=== PATIENT | male | born 1945 | race Caucasian/White ===

== ENCOUNTER 2017-04-20 07:15 | Inpatient (IN) | payer OTHER ==
[~2017-04-20] VITALS: Ht 167.6 cm; Wt 70.3 kg
--- NOTE | 2017-04-20 10:26 | History & Physical ---
SARAH SAMPSON,[place] 04/20/17 1026: General Information and HPI MD Statement: I have seen and personally examined GRISEL DORSEY and documented this H&P. The patient is a 72 year old M who presented with a patient stated chief complaint of [Here for colonoscopy prep]. Source of Information: patient Exam Limitations: no limitations History of Present Illness: A Paraplegic 72-year-old male with type 2 diabetes, CAD status post CABG and stents, hypertension, hyperlipidemia, chronic anemia, BPH, urethral strictures, multiple UTIs on chronic suppression therapy with ciprofloxacin, chronic decubitus ulcer on the Rt Ischium and has a colostomy in place since 1993 who sent in by his primary care physician Dr. Burton and his colorectal surgeon Dr. Zhou for colonoscopy to clean out the accumulation of mucus and fecal matter in his rectum which bypassed his colostomy resulting in inadvetent leakages from his rectum for the past 1 month. He reports that he had a similar problem almost 10 years ago and had to have fleet enemas with manual disimpaction as well as a colonoscopy by Dr. Zhou to clean him out and was sent in today to have the same procedure repeated. He denies any blood in his colostomy bag or via his rectum/anus but he has external hemorrhoids. He denies abdominal pain, nausea, vomiting, diarrhea, or fever/chills. He takes ciprofloxacin daily as prophylaxis for recurrent UTI. He has chronic decubiti on his Rt buttock for which he has visiting nurses come in daily to clean and dress the wounds and he follows up with wound care-Dr. Brewer in [facility]. Allergies/Medications Allergies: Uncoded Allergies: EMYCIN (RASH 07/21/15) Home Med list Amlodipine Besylate 5 MG TABLET 1 TAB PO DAILY HIGH BLOOD PRESSURE (Reported) Ascorbic Acid (Vitamin C) 500 MG CAPSULE.ER 2 CAP PO DAILY VITAMIN SUPPORT ( Reported) Aspirin (Ecotrin*) 81 MG TABLET. 1 TAB PO DAILY HEART HEALTH (Reported) Atenolol 25 MG TABLET 1 TAB PO DAILY HIGH BLOOD PRESSURE (Reported) Atorvastatin Calcium 20 MG TABLET 1 TAB PO DAILY HIGH CHOLESTROL (Reported) Cholecalciferol (Vitamin D3) (Vitamin D-3) 2,000 UNIT CAPSULE 1 TAB PO DAILY VITAMIN SUPPORT (Reported) Ciprofloxacin HCl 500 MG TABLET 1 TAB PO BID urinary prophylaxis (Reported) Cyanocobalamin (Vitamin B-12) (Cyanocobalamin Injection) 1,000 MCG/ML VIAL 1 ML IM Q30D VITAMIN SUPPORT (Reported) Gabapentin 300 MG CAPSULE 1 CAP PO TID NEUROPATHY (Reported) Glipizide (Glipizide ER) 5 MG TAB.ER.24 1 TAB PO DAILY DIABETES (Reported) Hydrochlorothiazide 25 MG TABLET 1 TAB PO DAILY HIGH BLOOD PRESSURE (Reported ) Metformin HCl 1,000 MG TABLET 1 TAB PO BID DIABETES (Reported) Compliance With Home Meds: GOOD Past History Medical History Neurological: Paraplegia Cardiovascular: CAD, hypertension, hyperlipidemia Musculoskeletal: decubitis ulcer Endocrine: diabetes Blood Disorders: anemia Other Medical Hx: BPH, Multiple UTIs, Urethral strictures, Urinary retention History of MRSA: Yes History of VRE: No History of CDIFF: No Pneumonia Vaccine: 06/26/13 Influenza Vaccine: 07/05/13 Past Family/Social History Family History Relations & Conditions if any MOTHER FH: breast cancer FH: hypertension FH: lung cancer uncle FH: cancer Psychosocial History Where do you live? Home Services at Home: Home Health Aide, Nursing Functional Ability ADLs Needs Assist: dressing, eating, toileting, bathing. Ambulation: Paraplegic-uses a wheelchair Review of Systems Review of Systems Constitutional: Reports: no symptoms. Cardiovascular: Reports: no symptoms. Respiratory: Reports: no symptoms. GI: Reports: see HPI. Genitourinary: Reports: no symptoms. Musculoskeletal: Reports: no symptoms. Exam & Diagnostic Data Physical Exam General Appearance Alert, Oriented X3, Cooperative, No Acute Distress Skin Rt Ischial decubitus [id number] HEENT Atraumatic, PERRLA, EOMI, Mucous Membr. moist/pink Neck Supple, No JVD Cardiovascular Regular Rate, Normal S1, Normal S2, No Murmurs Lungs Clear to Auscultation, Normal Air Movement Abdomen Normal Bowel Sounds, Soft, No Tenderness, Colostomy bag insitu, formed stool, mid abd scar Neurological Paraplegic with wasting of both lower extremities Extremities No Edema Last 24 Hrs of Labs/Willie: Laboratory Tests 04/20/17 1129: Sodium Pending, Potassium Pending, Chloride Pending, Carbon Dioxide Pending, Anion Gap Pending, BUN Pending, Creatinine Pending, BUN/Creatinine Ratio Pending , CBC w Diff Pending, WBC Pending, RBC Pending, Hgb Pending, Hct Pending, MCV Pending, MCH Pending, RDW Pending, Plt Count Pending, MPV Pending, PUBS MCHC Pending Assessment/Plan Assessment: A Paraplegic 72-year-old male with type 2 diabetes, CAD status post CABG and stents, hypertension, hyperlipidemia, chronic anemia, BPH, urethral strictures, multiple UTIs on chronic suppression therapy with ciprofloxacin, chronic decubitus ulcer on the Rt Ischium and has a colostomy in place since 1993 who sent in by his primary care physician Dr. Burtno and his colorectal surgeon Dr. Zhou for colonoscopy to clean out the accumulation of mucus and fecal matter in his rectum which bypassed his colostomy resulting in inadvetent leakages from his rectum for the past 1 month. Assessment 1. Fecal/Mucus acumution in rectum s/p diverting colostomy 2/2 paraplegia 2. T2 DM 3. HTN 4. Hx of Recurrent UTI 5. HLD, Hx of CAD Plan Admit to Bowel prep with Golytely and fleet enema Hold asprin and oral hypogylemics for now Fingerstick checks and Novolog SS Keep NPO at midnight with gentle hydration with D5 1/2NS Wound care for decubiti-turn regularly in bed or keep pt on air mattress Plan is for colonoscopy/proctoscopy in AM by Dr. Zhou Resume his other impt home medications DVT ppx with SC heparin Mild pain path way FC As Ranked By This Provider Problem List: 1. Colonoscopy planned Core Measures/Miscellaneous Acute Coronary Syndrome ACS Diagnosis: No Cerebrovascular Accident CVA/TIA Diagnosis: No Congestive Heart Failure CHF Diagnosis: No VTE (View Protocol) VTE Risk Factors: Acute medical illness, Age > 40 No [facility] VTE prophylaxis d/t: No contraindications No VTE Pharm Prophylaxis d/t: No contraindications VTE Diagnosis: No VTE Type: NONE VTE Confirmed by (Test): NONE Miscellaneous Documentation Attending Case Discussed With: Dr. Balderrama Primary Care Physician: TRES BURTON MD Patient sees these Specialists Cardiology Level of Patient Care: General Medicine Resident Review Statement Resident Statement: examined this patient Other Findings: see [facility] JOHN BALDERRAMA MD 04/20/17 1521: Past History Surgical History Surgical History: CABG, colostomy Exam & Diagnostic Data Last 24 Hrs of Vital Signs/I&O Vital Signs Date Time Temp Pulse Resp B/P B/P Pulse O2 O2 Flow FiO2 Mean Ox Delivery Rate 04/21 0709 98.2 86 20 102/46 95 04/20 2238 98.0 70 19 150/58 97 Room Air 04/20 1439 98.0 86 20 134/58 98 Room Air Intake & Output 04/21 1600 04/21 0800 04/21 0000 Intake Total Output Total 600 Balance -600 Output, Urine 600 Core Measures/Miscellaneous Sepsis (View Protocol) Severe Sepsis Present: No Septic Shock Septic Shock Present: No Attending MD Review Statement Attending Statement Attending MD Statement: examined this patient, discuss w/resident/PA/RETAIL SALES MERCHANDISER, agreed w/resident/PA/RETAIL SALES MERCHANDISER, reviewed EMR data (avail), discussed with nursing, discussed with case mgmt Attending Assessment/Plan: 82-year-old male past medical history of paraplegia from a spinal cord injury in the 1980s, coronary artery disease, diabetes, hypertension, urethral abnormalities his recurrent UTIs on chronic suppressive antibiotic therapy and a colostomy. He is here because he's been having a lot of fecal material and mucus leakage from his rectum. He says that his stool in his colostomy is well formed and no blood but the similar thing happen to him almost 10 years ago in 2007 and he needed a proctoscopy and colonoscopy with an aggressive bowel regimen and disimpaction and also had some mild diversion proctitis at that time. He couldn 't do the bowel prep at all at home given the colostomy, paraplegia and hence was sent in by his PCP for a direct admit for the same. We will keep him nothing by mouth after midnight, do the bowel prep as per the colorectal surgeon. Hold his oral hypoglycemics, start him on low-dose IV fluids. And follow-up closely. DVT prophylaxis and follow-up.
--- NOTE | 2017-04-20 10:30 | NUR ---
NSG NOTE: PATIENT ARRIVED TO FLOOR DIRECT ADMIT FROM DR. BURTON AT [facility] 1030 VIA PATIENTS OWN WHEELCHAIR; PATIENT A/OX3; RA; VSS; IV PLACED BY THIS RN; PATIENT HAS HX OF PARAPALEGIA W/ NO SENSATION BELOW THE WAIST; PATIENT IS WHEELCHAIR BOUND; RT ISCHIAL WOUND PRESENT WHICH PATIENT STATES HE HAS VISITING NURSES ASSESS AND DO DAILY DSG CHANGES; WOUND CARE EVAL PLACED; 3 SMALL AND 0NE LARGE OPEN AREA NOTED; PATIENT BROUGHT OWN DSG SUPPLIES IN FROM HOME AND THIS RN REDRESSED W/ HIS SUPPLIES DIRECTED BY PATIENT; PATIENT STATES, "THEY USE SILVER ALGENATE, 2 PADS, 2 ABD PADS AND TAPE TO DRESS THE WOUND" [place] CATH ON PATIENT AT THIS TIME; PATIENT STATES "I STRAIGHT CATH AT HOME AND WEAR THE [place] CATH SO I DONT LEAK ALL OVER"; RT SIDE COLOSTOMY IN PLACE; PATIENT REPORTS PAIN 4/10 TO BACK AND ABDOMEN WHICH HE STATES " I HAVE HAD THE SAME PAIN FOR YEARS, EVERYDAY"; PATIENT ORIENTED TO ROOM, CALL ABEL IN REACH; WILL CONT TO MONITOR
[2017-04-20] MEDS ORDERED: GLIPIZIDE ER5 M1 PO (10:38)
[2017-04-20] MEDS ORDERED: METFORMIN HCL1000 M1 PO (10:39)
[2017-04-20] MEDS ORDERED: HYDROCHLOROTHIA25 M1 PO (12:31)
[2017-04-20] MEDS ORDERED: CYANOCOBAL1000 MCG/2 IM (12:31)
[2017-04-20] MEDS ORDERED: CIPROFLOXACIN500 M2 PO (12:31)
[2017-04-20] MEDS ORDERED: AMLODIPINE BESYL5 M1 PO (12:32)
[2017-04-20] MEDS ORDERED: ATENOLOL25 M1 PO (12:32)
[2017-04-20] MEDS ORDERED: ATORVASTATIN CA20 M1 PO (12:32)
[2017-04-20] MEDS ORDERED: GABAPENTIN300 M2 PO (12:32)
[2017-04-20] MEDS ORDERED: VITAMIN C500 M7 PO (12:34)
[2017-04-20] MEDS ORDERED: VITAMIN D-32000 UNI1 PO (12:34)
[2017-04-20] MEDS ORDERED: ASPIRIN EC81 M1 PO (12:34)
[2017-04-20 12:59] LABS: ABSOLUTE BASOPHIL COUNT 0 /CUMM (0.0-0.2); ABSOLUTE EOSINOPHIL COUNT 0.1 /CUMM (0.0-0.7); ABSOLUTE GRANULOCYTE CT 10.2 /CUMM (1.4-6.5); ABSOLUTE LYMPH COUNT 1.6 /CUMM (1.2-3.4); ABSOLUTE MONOCYTE COUNT 0.6 /CUMM (0.10-0.60); BASOPHIL % 0.2 % (0.0-2.0); EOSINOPHIL % 0.6 % (0-5); GRANULOCYTE % 81.5 % (42.2-75.2); HEMATOCRIT 36.4 % (42-52); MEAN CORPUSCULAR HGB 19.2 PG (27.0-31.0); MEAN CORPUSCULAR HGB CONC 31.2 G/DL (33.0-37.0); MEAN CORPUSCULAR VOLUME 61.5 FL (80.0-94.0); MEAN PLATELET VOLUME 8.8 FL (7.4-10.4); PLATELET COUNT 247 /CUMM (130-400); RBC DISTRIBUTION WIDTH 16.9 % (11.5-14.5); RED BLOOD CELL CT 5.92 /CUMM (4.70-6.10); WHITE BLOOD CELL COUNT 12.6 /CUMM (4.8-10.8)
[2017-04-20 14:39] VITALS: BP 134/58
--- NOTE | 2017-04-20 15:21 | Admission Certification ---
Admission Certification Certification Statement - As attending physician, I certify that at the time of - admission, based on clinical presentation, severity of - symptoms, need for further diagnostic testing and - therapeutic interventions, and risk of adverse outcomes - without in-hospital treatment, in my clinical assessment, - this patient requires an acute hospital stay for a minimum - of two nights or longer. I have also considered psychsocial - factors such as support system, advanced age, financial - issues, cognitive issues, and failed out-patient treatments, - past re-admission history, safety of patient, and lack of - compliance as applicable. Specific rationale supporting this admission is: pt with fecal leakage , multiple comorbidities needs bowel prep and colonoscopy
--- NOTE | 2017-04-20 17:24 | Event Note ---
Event Note Event Note: Situation: Rcvd Rx faxed from Dr Whitney for Prepopik. Checked with Pharmacy and was notified it is non formulary and we do not carry the med. Called Dr Gray office and spoke and informed them about the unavailability of the Prepopik. They informed me that Golytely will be adequate enough.
[2017-04-20 22:38] VITALS: BP 150/58
[2017-04-21 07:09] VITALS: BP 102/46
--- NOTE | 2017-04-21 08:03 | PN- Housestaff ---
DIANA SAMPSON,[place] 04/21/17 0802: Subjective Follow-up For: colonoscopy Subjective: Seen and examined at bedside. Offers no acute complaint. Finished 2/3 of golytely prep in anticipation for colonoscopy. Denies fever/chill,n/c,cp/palp, abdominal pain,dysuria. Review of Systems Constitutional: Reports: see HPI. Objective Last 24 Hrs of Vital Signs/I&O Vital Signs Date Time Temp Pulse Resp B/P B/P Pulse O2 O2 Flow FiO2 Mean Ox Delivery Rate 04/21 1451 97.9 84 20 110/60 98 Room Air 04/21 1306 89 148/58 04/21 1306 89 148/58 04/21 0709 98.2 86 20 102/46 95 Physical Exam General Appearance: Alert, Oriented X3, Cooperative Other Physical Findings: Skin Rt Ischial decubitus [id number] HEENT Atraumatic, PERRLA, EOMI, Mucous Membr. moist/pink Neck Supple, No JVD Cardiovascular Regular Rate, Normal S1, Normal S2, No Murmurs Lungs Clear to Auscultation, Normal Air Movement Abdomen Normal Bowel Sounds, Soft, No Tenderness, Colostomy bag insitu, formed stool, mid abd scar Neurological Paraplegic with wasting of both lower extremities Extremities No Edema Current Medications: Current Medications Sig/Santhosh Start time Last Medication Dose Route Stop Time Status Admin Acetaminophen 650 MG Q6P PRN 04/20 1030 DCD PO Amlodipine Besylate 5 MG DAILY 04/21 1000 DCD 04/21 PO 1306 Ascorbic Acid 1,000 MG DAILY 04/21 1000 DCD 04/21 PO 1305 Atenolol 25 MG DAILY 04/21 1000 DCD 04/21 PO 1306 Atorvastatin Calcium 20 MG DAILY 04/21 1000 DCD 04/21 PO 1305 Chlorhexidine 1 GM .STK-MED ONE 04/21 1228 DC Gluconate TOP 04/21 1229 Cholecalciferol 2,000 IU DAILY 04/21 1000 DCD 04/21 PO 1306 Ciprofloxacin 500 MG BID 04/20 2200 DCD 04/21 PO 04/24 215 1304 Dextrose/Sodium 1,000 ML Q20H 04/21 0000 DCD 04/21 Chloride IV 0020 Gabapentin 300 MG TID 04/20 1600 DCD 04/21 PO 1305 Heparin Sodium 5,000 UNIT Q8 04/20 1400 DCD (Porcine) SC Hydrochlorothiazide 25 MG DAILY 04/21 1000 DCD 04/21 PO 1305 Insulin Human Regular 4 UNITS .STK-MED ONE 04/21 1342 DC IV 04/21 1343 Insulin Human Regular 0 Q6 04/20 1800 DCD 04/21 SC 1344 Last 24 Hrs of Lab/Willie Results Last 24 Hrs of Labs/Mics: .... Assessment/Plan Assessment: This is a Paraplegic 72-year-old male with type 2 diabetes, CAD status post CABG and stents, hypertension, hyperlipidemia, chronic anemia, BPH, urethral strictures, multiple UTIs on chronic suppression therapy with ciprofloxacin, chronic decubitus ulcer on the Rt Ischium and has a colostomy in place since 1993 who sent in by his primary care physician Dr. Bynum and his colorectal surgeon Dr. Zhou for colonoscopy to clean out the accumulation of mucus and fecal matter in his rectum which bypassed his colostomy resulting in inadvetent leakages from his rectum for the past 1 month. Colonoscopy Procedure Medical History: unchanged Mental Status: alert/oriented Heart/Lung Eval Prior to Sedation: within normal limits Candidate for Sedation? Yes Date of Last Colonoscopy: 2007 Procedure Date: 04/21/17 Procedure Type: colonoscopy Energy Manager: Roel Zhou MD ASA Classification: III Indications: #1 colorectal cancer screening #2 rectal seepage Instrument (Colonoscope): single channel Meds Received: MAC Patient's Tolerance: good Complications: none Extent Reached: cecum Prep: good Procedure: After informed consent was obtained, the patient was placed in the supine position on the GI stretcher. He was sedated by the Department of anesthesia with intravenous propofol. Full length adult Olympus colonoscope was inserted through his left lower quadrant end sigmoid colostomy and negotiated through the sigmoid, descending, transverse, and ascending colons until the cecum was reached. Valve and appendiceal orifice were identified. The scope was then withdrawn carefully observing all mucosal surfaces of the colon for the presence of polyps, lesions, inflammation, or bleeding sources. There were no such findings visualized. The patient was then carefully turned into the left lateral position and the scope was introduced through the anal canal into the rectum. It was passed to the end of the rectal pouch approximately 15 cm upward until a visible staple line was encountered indicating the end of the rectal pouch. While there were some inflammatory changes at this level there was no evidence of an active fistula here. The scope was withdrawn and the mucosa was carefully examined. There was no fecal staining one or 2 areas of thick mucus which were washed out. The underlying rectal mucosa was slightly edematous and pinkish consistent with diversion proctitis. Ultimately the scope was removed. Findings: See above procedure note Impression: Normal colonoscopy post end sigmoid colostomy Diversion proctitis of the rectum Recommendations: No changes in anorectal care or colostomy apparatus and care are needed at this time. 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 Pt restarted back on regular diet. Will continue to f/u with colorectal and PCP. No changes made on his med list. Stable for discharge. Problem List: 1. Colonoscopy planned Pain Ratin Pain Location: none Pain Goal: Remain pain free Pain Plan: per pathway Tomorrow's Labs & Rationales: none-discharge JOHN BALDERRAMA MD 04/21/17 0929: Attending MD Review Statement Attending Statement Attending MD Statement: examined this patient, discuss w/resident/PA/CORPORATE ASSOCIATE ATTORNEY, agreed w/resident/PA/CORPORATE ASSOCIATE ATTORNEY, reviewed EMR data (avail), discussed with nursing Attending Assessment/Plan: Pt feels ok. Overnight he had multiple BM's both from his rectal area and colostomy bag and the output is almost clear now. The plan is for a colonoscopy later today. He has underlying paraplegia with diabetes, CAD status post bypass was here with persistent feculent/ mucus drainage through the rectal area and is getting a diagnostic and questionable therapeutic colonoscopy. He is nothing by mouth on low-dose IV fluids and will follow closely.
--- NOTE | 2017-04-21 10:24 | NUR ---
PT OFF THE FLOOR TO GI FOR SCHEDULED COLONOSCOPY. PT STABLE. NO DISTRESS. PENDING RETURN TO FLOOR.
--- NOTE | 2017-04-21 12:15 | Proc Note Colonoscopy ---
Colonoscopy Procedure Medical History: unchanged Mental Status: alert/oriented Heart/Lung Eval Prior to Sedation: within normal limits Candidate for Sedation? Yes Date of Last Colonoscopy: 2007 Procedure Date: 04/21/17 Procedure Type: colonoscopy General Road Supervisor: Roel Zhou MD ASA Classification: III Indications: #1 colorectal cancer screening #2 rectal seepage Instrument (Colonoscope): single channel Meds Received: MAC Patient's Tolerance: good Complications: none Extent Reached: cecum Prep: good Procedure: After informed consent was obtained, the patient was placed in the supine position on the GI stretcher. He was sedated by the Department of anesthesia with intravenous propofol. Full length adult Olympus colonoscope was inserted through his left lower quadrant end sigmoid colostomy and negotiated through the sigmoid, descending, transverse, and ascending colons until the cecum was reached. Valve and appendiceal orifice were identified. The scope was then withdrawn carefully observing all mucosal surfaces of the colon for the presence of polyps, lesions, inflammation, or bleeding sources. There were no such findings visualized. The patient was then carefully turned into the left lateral position and the scope was introduced through the anal canal into the rectum. It was passed to the end of the rectal pouch approximately 15 cm upward until a visible staple line was encountered indicating the end of the rectal pouch. While there were some inflammatory changes at this level there was no evidence of an active fistula here. The scope was withdrawn and the mucosa was carefully examined. There was no fecal staining one or 2 areas of thick mucus which were washed out. The underlying rectal mucosa was slightly edematous and pinkish consistent with diversion proctitis. Ultimately the scope was removed. Findings: See above procedure note Impression: Normal colonoscopy post end sigmoid colostomy Diversion proctitis of the rectum Recommendations: No changes in anorectal care or colostomy apparatus and care are needed at this time. Followup Colonscopy Screen In: in 10 years CC: DANILO SAMPSON,JORGE Ayoub; JOSEPHINE SAMPSON,TRES Henderson
--- NOTE | 2017-04-21 14:08 | Patient Discharge Instructions ---
Discharge Instructions General Discharge Information You were seen/treated for: POSSIBLE RECTAL DISCHARGE/LEAK Special Instructions: PLEASE FOLLOW UP WITH YOUR PRIMARY CARE WITHIN 1 WEEK PLEASE FOLLOW UP WITH YOU COLORECTAL SURGEON WITHIN 1 WEEK Acute Coronary Syndrome Inclusion Criteria At DC or during hospital stay patient has or had the following: ACS DIAGNOSIS No Discharge Core Measures Meds if any: Prescribed or Continued at Discharge Meds if any: NOT Prescribed or Continued at Discharge Congestive Heart Failure Inclusion Criteria At DC or during hospital stay patient has or had the following: CHF DIAGNOSIS No Discharge Core Measures Meds if any: Prescribed or Continued at Discharge Meds if any: NOT Prescribed or Continued at Discharge Cerebrovascular accident Inclusion Criteria At DC or during hospital stay patient has or had the following: CVA/TIA Diagnosis No Discharge Core Measures Meds if any: Prescribed or Continued at Discharge Meds if any: NOT Prescribed or Continued at Discharge Venous thromboembolism Inclusion Criteria VTE Diagnosis No VTE Type NONE VTE Confirmed by (Test) NONE Discharge Core Measures - Per Current guidelines, there needs to be overlap - treatment for the first 5 days of Warfarin therapy. - If discharged on Warfarin prior to 5 days of - overlap therapy, the patient will need to be - assessed for post discharge needs including - *Post discharge parental anticoagulation - *Warfarin and/or parental anticoagulation education - *Follow up date to check INR post discharge At least 5 days overlap therapy as Inpatient No Meds if any: Prescribed or Continued at Discharge Note: Overlap Therapy is Warfarin and Anticoagulant Meds if any: NOT Prescribed or Continued at Discharge
[2017-04-21 14:51] VITALS: BP 110/60
--- NOTE | 2017-04-22 06:42 | Discharge Summary ---
Visit Information Visit Dates Admission Date: 04/20/17 Discharge Date: 04/21/17 Hospital Course Course Attending Physician: TRES BURTON MD Primary Care Physician: TRES BURTON MD Hospital Course: This is a Paraplegic 72-year-old male with type 2 diabetes, CAD status post CABG and stents, hypertension, hyperlipidemia, chronic anemia, BPH, urethral strictures, multiple UTIs on chronic suppression therapy with ciprofloxacin, chronic decubitus ulcer on the Rt Ischium. a colostomy in place since 1993 who sent in by his PCP and his colorectal surgeon Dr. Zhou for colonoscopy to clean out the accumulation of mucus matter in his rectum which resulted in inadvertentl anal leakage.He reports that he had a similar problem almost 10 years ago and had to have fleet enemas with manual disimpaction as well as a colonoscopy by Dr. Zhou to clean him out and he was sent in today to have the same procedure repeated. He denied any blood in his colostomy bag or via his rectum/anus but he has external hemorrhoids. He denied any abdominal pain, nausea, vomiting, diarrhea, or fever/chills. VS signs on presentation: Stable. Pt was admitted to [facility] floor, started on clear liquids and Golytely prep/ fleet, and NPO at night prior to procedure. In the morning, patient underwent colonoscopy with no intraprocedure complication. Colonoscopy findings were benign other than possible proctitis diversion of the rectum. pt diet was restarted to regular diet post procedure. He was medically stable and discharge same day of procedure. No changes on his medication regimen was done during discharge. Allergies: Uncoded Allergies: EMYCIN (RASH 07/21/15) Significant Procedures: PATIENT CARE UNIT CONFIDENTIAL COPY Colonoscopy Procedure Medical History: unchanged Mental Status: alert/oriented Heart/Lung Eval Prior to Sedation: within normal limits Candidate for Sedation? Yes Date of Last Colonoscopy: 2007 Procedure Date: 04/21/17 Procedure Type: colonoscopy Research Animal Attendant: Roel Zhou MD ASA Classification: III Indications: #1 colorectal cancer screening #2 rectal seepage Instrument (Colonoscope): single channel Meds Received: MAC Patient's Tolerance: good Complications: none Extent Reached: cecum Prep: good Procedure: After informed consent was obtained, the patient was placed in the supine position on the GI stretcher. He was sedated by the Department of anesthesia with intravenous propofol. Full length adult Olympus colonoscope was inserted through his left lower quadrant end sigmoid colostomy and negotiated through the sigmoid, descending, transverse, and ascending colons until the cecum was reached. Valve and appendiceal orifice were identified. The scope was then withdrawn carefully observing all mucosal surfaces of the colon for the presence of polyps, lesions, inflammation, or bleeding sources. There were no such findings visualized. The patient was then carefully turned into the left lateral position and the scope was introduced through the anal canal into the rectum. It was passed to the end of the rectal pouch approximately 15 cm upward until a visible staple line was encountered indicating the end of the rectal pouch. While there were some inflammatory changes at this level there was no evidence of an active fistula here. The scope was withdrawn and the mucosa was carefully examined. There was no fecal staining one or 2 areas of thick mucus which were washed out. The underlying rectal mucosa was slightly edematous and pinkish consistent with diversion proctitis. Ultimately the scope was removed. Findings: See above procedure note Impression: Normal colonoscopy post end sigmoid colostomy Diversion proctitis of the rectum Recommendations: No changes in anorectal care or colostomy apparatus and care are needed at this time. Followup Colonscopy Screen In: in 10 years Disposition Summary Disposition Principal Diagnosis: Diversion proctitis of rectum Additional Diagnosis: Lower GI pain Discharge Disposition: home health services Discharge Instructions General Discharge Information Code Status: Full Code Patient's Diet: regular Patient's Activity: As tolerated Follow-Up Instructions/Appts: Pt to follow up with Colorectal within 1 week Pt to f/u with PCP within 1 week Medications at Discharge Discharge Medications: Continue taking these medications: Glipizide (Glipizide ER) 5 MG TAB.ER.24 1 Tablet ORAL DAILY Qty = 30 Comments: NOT GIVEN- SS INSULIN PROVIDED NEEDED INSTEAD Metformin HCl (Metformin HCl) 1,000 MG TABLET 1 Tablet ORAL TWICE DAILY Qty = 60 Comments: NOT GIVEN- INSULIN COVERAGE PROVIDED NEEDED Cyanocobalamin (Vitamin B-12) (Cyanocobalamin Injection) 1,000 MCG/ML VIAL 1 Milliliters INTRAMUSC ONCE A MONTH Qty = 1 Comments: NOT GIVEN Hydrochlorothiazide (Hydrochlorothiazide) 25 MG TABLET 1 Tablet ORAL DAILY Qty = 30 Comments: Last Taken: 04/21/17 Time: 1 PM Ciprofloxacin HCl (Ciprofloxacin HCl) 500 MG TABLET 1 Tablet ORAL TWICE DAILY Qty = 68 Comments: Last Taken: 04/21/17 Time: 1 PM Atenolol (Atenolol) 25 MG TABLET 1 Tablet ORAL DAILY Qty = 60 Comments: Last Taken: 04/21/17 Time: 1 PM Amlodipine Besylate (Amlodipine Besylate) 5 MG TABLET 1 Tablet ORAL DAILY Qty = 30 Comments: Last Taken: 04/21/17 Time: 1 PM Atorvastatin Calcium (Atorvastatin Calcium) 20 MG TABLET 1 Tablet ORAL DAILY Qty = 30 Comments: Last Taken: 04/21/17 Time: 1 PM Gabapentin (Gabapentin) 300 MG CAPSULE 1 Capsule ORAL THREE TIMES DAILY Qty = 180 Comments: Last Taken: 04/21/17 Time: 1 PM Cholecalciferol (Vitamin D3) (Vitamin D-3) 2,000 UNIT CAPSULE 1 Tablet ORAL DAILY Comments: Last Taken: 04/21/17 Time: 1 PM Aspirin (Ecotrin*) 81 MG TABLET.DR 1 Tablet ORAL DAILY Comments: NOT GIVEN Ascorbic Acid (Vitamin C) 500 MG CAPSULE.ER 2 Capsule ORAL DAILY Comments: Last Taken: 04/21/17 Time: 1 PM Copies To: JOSEPHINE SAMPSON,TRES Henderson
== END 2017-04-21 15:25 | disposition home health service (06) | DRG 394 ==
LOC: 2NB 10:12 → 2NA 11:00 → 2NB 04-21 15:25
PROVIDERS: Student in an Organized Health Care Education/Training Program; ADMIT Internal Medicine
PROC: 0DJD8ZZ Inspection of Lower Intestinal Tract, Via Natural or Artificial Opening Endoscopic (ICD-10-PCS; principal; 2017-04-21)
DX: K62.89 Other specified diseases of anus and rectum (principal); G82.20 Paraplegia, unspecified; L89.899 Pressure ulcer of other site, unspecified stage; I10 Essential (primary) hypertension; E11.9 Type 2 diabetes mellitus without complications; D64.9 Anemia, unspecified; I25.10 Atherosclerotic heart disease of native coronary artery without angina pectoris; E78.5 Hyperlipidemia, unspecified; N40.0 Benign prostatic hyperplasia without lower urinary tract symptoms; Z93.3 Colostomy status; Z95.1 Presence of aortocoronary bypass graft; Z79.84 Long term (current) use of oral hypoglycemic drugs
CPT/HCPCS: 2NBP; 36415; 82436; 93005; 93010; J1644; J1815; J7042

== ENCOUNTER 2018-02-17 12:53 | Emergency (ER) | payer OTHER ==
[~2018-02-17] VITALS: Ht 167.6 cm; Wt 70.3 kg
[~2018-02-17 12:53] MED LIST: AMLODIPINE BESYL5 M1 PO; ASPIRIN EC81 M1 PO; ATENOLOL25 M1 PO; ATORVASTATIN CA20 M1 PO; CIPROFLOXACIN500 M2 PO; CYANOCOBAL1000 MCG/2 IM; GABAPENTIN300 M2 PO; GLIPIZIDE ER5 M1 PO; HYDROCHLOROTHIA25 M1 PO; METFORMIN HCL1000 M1 PO; VITAMIN C500 M7 PO; VITAMIN D-32000 UNI1 PO
--- NOTE | 2018-02-17 13:09 | ED GENERAL ADULT ---
History of Present Illness General Chief Complaint: General Adult Stated Complaint: PT WAS SENT IN FOR A PICK LINE AND OPEN WOUND Source: patient, family, old records Exam Limitations: no limitations Vital Signs & Intake/Output Vital Signs & Intake/Output Vital Signs Date Time Temp Pulse Resp B/P B/P Pulse O2 O2 Flow FiO2 Mean Ox Delivery Rate 02/17 1354 Room Air 02/17 1303 98.7 78 18 139/90 99 Room Air Allergies Coded Allergies: erythromycin base (RASH 02/17/18) Reconcile Medications Amitriptyline HCl 25 MG TABLET 1 TAB PO QPM SLEEP (Reported) Amlodipine Besylate 5 MG TABLET 1 TAB PO DAILY HIGH BLOOD PRESSURE (Reported) Ascorbic Acid (Vitamin C) 500 MG CAPSULE.ER 2 CAP PO DAILY VITAMIN SUPPORT ( Reported) Aspirin (Ecotrin*) 81 MG TABLET.DR 1 TAB PO DAILY HEART HEALTH (Reported) Atenolol 25 MG TABLET 1 TAB PO BID BP (Reported) Atorvastatin Calcium 20 MG TABLET 1 TAB PO DAILY HIGH CHOLESTROL (Reported) Cholecalciferol (Vitamin D3) (Vitamin D-3) 2,000 UNIT CAPSULE 1 TAB PO DAILY VITAMIN SUPPORT (Reported) Ciprofloxacin HCl 500 MG TABLET 1 TAB PO DAILY URINE (Reported) Cyanocobalamin (Vitamin B-12) (Cyanocobalamin Injection) 1,000 MCG/ML VIAL 1 ML IM Q30D VITAMIN SUPPORT (Reported) Ferrous Sulfate 325 MG (65 MG IRON) TABLET 1 TAB PO DAILY IRON, VITAMIN ( Reported) Gabapentin 300 MG CAPSULE 1 CAP PO TID NEUROPATHY (Reported) Glipizide (Glipizide ER) 5 MG TAB.ER.24 1 TAB PO DAILY DIABETES (Reported) Hydrochlorothiazide 25 MG TABLET 1 TAB PO DAILY HIGH BLOOD PRESSURE (Reported ) Hydrocodone/Acetaminophen (Hydrocodon-Acetaminoph 7.5-325) 7.5 MG-325 MG TABLET 1-2 TAB PO Q4-6 PRN PRN PAIN (Reported) Metformin HCl 1,000 MG TABLET 1 TAB PO BID DIABETES (Reported) Triage Note: 72 Y/O MALE STATES HE HAS OSTEOMYELITIS,"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 PT STATES HE HAS HAD A WOUND FOR 18 YEARS BUT IT BECAME "UGLY" OVER LAST FEW WEEKS. PT STATES HE WAS TOLD TO COME TO ED FOR PICC LINE PLACEMENT AND IV ANTIBIOTICS. MD BYRNE IN ROOM ON ARRIVAL FOR EVAL Triage Nurses Notes Reviewed? yes HPI: Patient has been paraplegic for the past 30 years. Patient has had a chronic decubitus for the past 18 years. Patient follows up with [facility] wound center. He began to have pus drainage from the wound a few days ago. Patient had debridement and bone biopsy performed which is now growing MRSA. Patient was instructed that he is a PICC line as well as IV Vanco. Patient has no other complaints. Past History Travel History Traveled to [place] past 21 day No Medical History Any Pertinent Medical History? see below for history Neurological: Paraplegia EENT: NONE Cardiovascular: CAD, hypertension, hyperlipidemia Respiratory: NONE Gastrointestinal: NONE Hepatic: NONE Renal: NONE Musculoskeletal: decubitis ulcer Psychiatric: NONE Endocrine: diabetes Blood Disorders: anemia Cancer(s): NONE EMPLOYEE RELATIONS CONSULTANT/Reproductive: NONE, trichomoniasis Other Medical Hx: BPH, Multiple UTIs, Urethral strictures, Urinary retention History of MRSA: Yes History of VRE: No History of CDIFF: No Pneumonia Vaccine: 06/26/13 Influenza Vaccine: 07/05/13 Surgical History Surgical History: CABG, colostomy Psychosocial History Who do you live with Spouse Services at Home Home Health Aide, Nursing What is your primary language Qatari Tobacco Use: Quit >30 days ago ETOH Use: denies use Illicit Drug Use: denies illicit drug use Family History Family History, If Any: MOTHER FH: breast cancer FH: hypertension FH: lung cancer uncle FH: cancer Hx Contributory? No Review of Systems Review of Systems Constitutional: Reports: no symptoms. Respiratory: Reports: no symptoms. Cardiovascular: Reports: no symptoms. Musculoskeletal: Reports: no symptoms. Immunologic/Allergic: Reports: no symptoms. Physical Exam Physical Exam General Appearance: well developed/nourished, alert, awake Eyes: Bilateral: PERRL, EOMI. Neck: normal inspection, supple, full range of motion Respiratory: normal breath sounds, chest non-tender, no respiratory distress, lungs clear Cardiovascular: regular rate/rhythm, normal peripheral pulses Neurologic/Psych: awake, alert, oriented x 3 Core Measures ACS in differential dx? No CVA/TIA Diagnosis: No Sepsis Present: No Sepsis Focused Exam Completed? 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] Plan of Care: Orders Procedure Date/time Status COMPREHENSIVE METABOLIC PANEL 02/17 1324 Complete CBC WITHOUT DIFFERENTIAL 02/17 1324 Complete Laboratory Tests 02/17/18 1350: Anion Gap 14, Estimated GFR > 60, BUN/Creatinine Ratio 25.0, Glucose 117 H, Calcium 8.7, Total Bilirubin 0.3, AST 14 L, ALT 23, Alkaline Phosphatase 74, Total Protein 6.7, Albumin 3.6, Globulin 3.1, Albumin/Globulin Ratio 1.2, CBC w Diff NO MAN DIFF REQ, RBC 5.15, MCV 59.6 L, MCH 18.8 L, MCHC 31.5 L, RDW 17.0 H, MPV 7.9, Gran % 80.1 H, Lymphocytes % 12.3 L, Monocytes % 6.9, Eosinophils % 0.4, Basophils % 0.3, Absolute Granulocytes 9.8 H, Absolute Lymphocytes 1.5, Absolute Monocytes 0.8 H, Absolute Eosinophils 0, Absolute Basophils 0 Initial ED EKG: none Comments: Case was discussed with Dr. Jenkins. He recommends IV Vanco 1 g daily for 4-6 weeks. Patient informed that he will need to follow-up with an infectious disease physician. Son states that he has no point with Dr. Sierra for follow-up. Departure Departure Disposition: HOME OR SELF CARE Condition: Stable Clinical Impression Primary Impression: Osteomyelitis Referrals: Misa SAMPSON,Loco Huber (PCP/Family) Additional Instructions: THE NURSE WILL BE THERE TO GIVE YOU YOUR NEXT VANCO DOSE HAVE BLOOD WORK DRAWN ON Tuesday FOR ANY CONCERNS Departure Forms: Customer Survey General Discharge Information Critical Care Note Critical Care Note Critical Care Time: non-applicable Additional Instructions: THE NURSE WILL BE THERE TO GIVE YOU YOUR NEXT VANCO DOSE HAVE BLOOD WORK DRAWN ON Tuesday FOR ANY CONCERNS Departure Forms: Customer Survey General Discharge Information
[2018-02-17 14:02] LABS: ABSOLUTE BASOPHIL COUNT 0 /CUMM (0.0-0.2); ABSOLUTE EOSINOPHIL COUNT 0 /CUMM (0.0-0.7); ABSOLUTE GRANULOCYTE CT 9.8 /CUMM (1.4-6.5); ABSOLUTE LYMPH COUNT 1.5 /CUMM (1.2-3.4); ABSOLUTE MONOCYTE COUNT 0.8 /CUMM (0.10-0.60); BASOPHIL % 0.3 % (0.0-2.0); EOSINOPHIL % 0.4 % (0-5); GRANULOCYTE % 80.1 % (42.2-75.2); HEMATOCRIT 30.7 % (42-52); MEAN CORPUSCULAR HGB 18.8 PG (27.0-31.0); MEAN CORPUSCULAR HGB CONC 31.5 G/DL (33.0-37.0); MEAN PLATELET VOLUME 7.9 FL (7.4-10.4); PLATELET COUNT 306 /CUMM (130-400); RED BLOOD CELL CT 5.15 /CUMM (4.70-6.10); WHITE BLOOD CELL COUNT 12.3 /CUMM (4.8-10.8)
[2018-02-17] MEDS ORDERED: HYDROCODON-ACE1 EAC3 PO (14:15)
[2018-02-17] MEDS ORDERED: AMITRIPTYLINE H25 M2 PO (14:16)
[2018-02-17] MEDS ORDERED: CYANOCOBAL1000 MCG/2 IM (14:16)
[2018-02-17 14:20] LABS: MEAN CORPUSCULAR VOLUME 59.6 FL (80.0-94.0)
[2018-02-17] MEDS ORDERED: FERROUS SULFAT325 M3 PO (14:20)
--- NOTE | 2018-02-17 15:30 | ULTRASOUND REPORT ---
IR PICC RIGHT PROCEDURE: PICC line placement. CLINICAL INDICATION: Infection requiring IV access. INTERVENTIONAL RADIOLOGIST: Roel Srivastava M.D. ACCESS: Right basilic vein. GUIDANCE: Ultrasound and fluoroscopy COMPLICATIONS: None CONTRAST: None DESCRIPTION: The right arm was prepped and draped. All elements of maximal sterile barrier technique followed including use of cap, mask, sterile gown, sterile gloves, a sterile full body drape and hand hygiene. Also followed skin preparation with 2% chlorhexidine for cutaneous antisepsis, and sterile ultrasound preparation with sterile gel and probe cover when applicable. Under direct ultrasound guidance, the right basilic vein was punctured using a micropuncture system. A hard copy image of the US was recorded in our PACS. Under fluoroscopic guidance, a 0.018 guidewire was advanced into the right atrium. Fluoroscopic landmarks were utilized to calculate the catheter length. A 5-Bahamian peel-away sheath was then placed. Subsequently, a 40 cm 5-Bahamian double-lumen Bard PowerPICC was placed through the sheath and positioned with its tip at the right atrial/SVC junction. The PICC line was secured to the skin using a fixation device. Each lumen of the PICC was flushed with 2 mL of Hep-Lock and a sterile dressing was applied. IMPRESSION: Successful placement of 5-Bahamian PICC. This can be used for contrast CT power injections.
[2018-02-17 17:13] VITALS: BP 135/62
== END 2018-02-17 17:16 ==
LOC: ERH 12:53
PROVIDERS: Emergency Medicine
DX: M86.9 Osteomyelitis, unspecified (principal)
CPT/HCPCS: 77001; 96374; C1769; J1642; J2001; J3370

== ENCOUNTER 2018-03-11 14:15 | Inpatient (IN) | payer OTHER ==
[~2018-03-11] VITALS: Ht 167.6 cm; Wt 63.6 kg
[~2018-03-11 14:15] MED LIST changes: +AMITRIPTYLINE H25 M2 PO; +FERROUS SULFAT325 M3 PO; +HYDROCODON-ACE1 EAC3 PO
--- NOTE | 2018-03-11 14:41 | ED GENERAL ADULT ---
History of Present Illness General Chief Complaint: General Adult Stated Complaint: BIBA WITH SEPTIC,FEVER Source: patient, family, old records Exam Limitations: no limitations Allergies Coded Allergies: erythromycin base (RASH 02/17/18) Reconcile Medications Amitriptyline HCl 25 MG TABLET 1 TAB PO QPM SLEEP (Reported) Amlodipine Besylate 5 MG TABLET 1 TAB PO DAILY HIGH BLOOD PRESSURE (Reported) Ascorbic Acid (Vitamin C) 500 MG CAPSULE.ER 2 CAP PO DAILY VITAMIN SUPPORT ( Reported) Aspirin (Ecotrin*) 81 MG TABLET.DR 1 TAB PO DAILY HEART HEALTH (Reported) Atenolol 25 MG TABLET 1 TAB PO BID BP (Reported) Atorvastatin Calcium 20 MG TABLET 1 TAB PO DAILY HIGH CHOLESTROL (Reported) Cholecalciferol (Vitamin D3) (Vitamin D-3) 2,000 UNIT CAPSULE 1 TAB PO DAILY VITAMIN SUPPORT (Reported) Ciprofloxacin HCl 500 MG TABLET 1 TAB PO DAILY URINE (Reported) Cyanocobalamin (Vitamin B-12) (Cyanocobalamin Injection) 1,000 MCG/ML VIAL 1 ML IM Q30D VITAMIN SUPPORT (Reported) Ferrous Sulfate 325 MG (65 MG IRON) TABLET 1 TAB PO DAILY IRON, VITAMIN ( Reported) Gabapentin 300 MG CAPSULE 1 CAP PO TID NEUROPATHY (Reported) Glipizide (Glipizide ER) 5 MG TAB.ER.24 1 TAB PO DAILY DIABETES (Reported) Hydrochlorothiazide 25 MG TABLET 1 TAB PO DAILY HIGH BLOOD PRESSURE (Reported ) Hydrocodone/Acetaminophen (Hydrocodon-Acetaminoph 7.5-325) 7.5 MG-325 MG TABLET 1-2 TAB PO Q4-6 PRN PRN PAIN (Reported) Metformin HCl 1,000 MG TABLET 1 TAB PO BID DIABETES (Reported) Triage Note: PT BIBA FROM HOME WITH C/O SUBJECTIVE FEVERS AND TREMOR x APPROXIMATELY 5-6 DAYS. PT WITH HX OF PARAPLEGIA AND OSTEOMYELITIS WITH RECENT PICC PLACEMENT AND AT-HOME ABX. EMS REPORTS PT TACHYCARDIC EN ROUTE WITH RATE IN 120s. PT ARRIVES A&O, VISIBLY TREMULOUS. REMAINS TACHYCARDIC Triage Nurses Notes Reviewed? yes Onset: Abrupt Duration: week(s): (1), constant, continues in ED, getting worse Timing: recent history Injury Environment: home Severity: moderate, severe No Modifying Factors: none HPI: 72-year-old male history of paraplegia, osteomyelitis, large sacral pressure ulcer, diabetes, coronary artery disease as her evaluation of fever, weakness, sweats, chills, tremors and shortness of breath. Patient states symptoms have been ongoing for about a week. Fevers initially low-grade but then today spiked temp of 102. He's been taking Tylenol home with mild improvement. Patient is currently on vancomycin for osteomyelitis related to a sacral pressure ulcer. He's had the area debrided multiple times and is followed by infectious disease. Patient also reports she's had intermittent shortness of breath and chest pressure that has been going on for several weeks. Patient is not ambulatory. He denies any lower extremity edema hemoptysis nausea vomiting. Since being on the vancomycin he has had loose stool going in his colostomy bag but denies any melena or blood. (Earnest Villagran) Vital Signs & Intake/Output Vital Signs & Intake/Output Vital Signs Date Time Temp Pulse Resp B/P B/P Pulse O2 O2 Flow FiO2 Mean Ox Delivery Rate 03/11 1928 98.5 92 20 132/60 98 Room Air 03/11 1626 96 Room Air 03/11 1625 100.0 108 22 135/60 96 Room Air 03/11 1431 102.4 124 22 168/70 95 Room Air (Manju SAMPSON,Danis Salguero) Past History Travel History Traveled to [place] past 21 day No Medical History Any Pertinent Medical History? see below for history Neurological: Paraplegia EENT: NONE Cardiovascular: CAD, hypertension, hyperlipidemia Respiratory: NONE Gastrointestinal: NONE Hepatic: NONE Renal: NONE Musculoskeletal: decubitis ulcer Psychiatric: NONE Endocrine: diabetes Blood Disorders: anemia Cancer(s): NONE PLANT MACHINIST/Reproductive: NONE, trichomoniasis Other Medical Hx: BPH, Multiple UTIs, Urethral strictures, Urinary retention History of MRSA: Yes History of VRE: No History of CDIFF: No Surgical History Surgical History: CABG, colostomy Psychosocial History Who do you live with Spouse Services at Home Home Health Aide, Nursing What is your primary language Maltese Family History Family History, If Any: MOTHER FH: breast cancer FH: hypertension FH: lung cancer uncle FH: cancer Hx Contributory? No (Earnest Villagran) Review of Systems Review of Systems Constitutional: Reports: chills, diaphoresis, fever, malaise, weakness. EENTM: Reports: no symptoms. Respiratory: Reports: short of breath. Cardiovascular: Reports: see HPI, chest pain (pressure). GI: Reports: no symptoms. Genitourinary: Reports: no symptoms. Musculoskeletal: Reports: no symptoms. Skin: Reports: see HPI (pressure ulcer). Neurological/Psychological: Reports: no symptoms. Hematologic/Endocrine: Reports: no symptoms. Immunologic/Allergic: Reports: no symptoms. All Other Systems: Reviewed and Negative (Earnest Villagran) Physical Exam Physical Exam General Appearance: well developed/nourished, no apparent distress, alert, awake Head: atraumatic, normal appearance Eyes: Bilateral: normal appearance, PERRL, EOMI. Ears, Nose, Throat: normal pharynx, normal ENT inspection, hearing grossly normal Neck: normal inspection, supple, full range of motion Respiratory: normal breath sounds, chest non-tender, no respiratory distress, lungs clear Cardiovascular: normal peripheral pulses, tachycardia Peripheral Pulses: 2+ radial (R), 2+ radial (L) Gastrointestinal: normal bowel sounds, soft, non-tender, no organomegaly, colostomy bag in place without surrounding erythema. Guaiac negative stool in the colostomy Back: large stage IV pressure ulcer in the sacral decubitus area. Does not appear to be any surrounding erythema or purulent discharge. The laceration extends to the base of the scrotum. There is no scrotal swelling or erythema. No crepitus. Extremities: bilateral lower chimneys or atrophy. Patient is paraplegic. He does have full range of motion of the bilateral upper extremities, PICC line present in the right upper extremity no stranding erythema and swelling or induration Neurologic/Psych: no motor/sensory deficits, awake, alert, oriented x 3 Skin: intact, normal color, warm/dry Lymphatic: no anterior cervical el[place] Core Measures ACS in differential dx? Yes CVA/TIA Diagnosis: No Sepsis Present: Yes Sepsis Focused Exam Completed? Yes (Earnest Villagran) ED Sepsis Exam Date of Focused Sepsis Exam: 03/11/18 Time of Focused Sepsis Exam: 2012 Sepsis Cardiac Exam: Tachycardia Sepsis Resp Exam: CTA Sepsis Cap Refill Exam: <2 Sec Sepsis Peripheral Pulse Exam: Normal Sepsis Peripheral Pulse Location: Radial Sepsis Skin Color Exam: Normal for Ethnicity Skin Temp/Moisture Exam: Hot/Dry (Earnest Villagran) Progress Differential Diagnoses I considered the following diagnoses in my evaluation of the patient: [ Osteomyelitis, sepsis, UTI, pyelonephritis, pneumonia, PE, acute coronary syndrome, pressure ulcer infection] Diagnostic Imaging: Viewed by Me: Radiology Read, CT Scan. Discussed w/RAD: Radiology Read, CT Scan. Radiology Impression: PATIENT: GRISEL DORSEY PRESENT AGE: 72 PATIENT ACCOUNT NO: [id number] : 45 LOCATION: [facility] ORDERING PHYSICIAN: Earnest BARRIOS SERVICE DATE: 03/11/18 EXAM TYPE: CAT - CT ABD & PELVIS W IV CONTRAST; CTA CHEST-PULMONARY EMBOLISM EXAMINATION: CT ANGIOGRAM OF THE CHEST WITH AND WITHOUT CONTRAST (CT PULMONARY ANGIOGRAM FOR PE) CT ABDOMEN AND PELVIS WITH CONTRAST CLINICAL INFORMATION: Shortness of breath, chest pressure, cough, sepsis, large sacral pressure ulcer. COMPARISON: CT abdomen and pelvis dated 12/21/2013, CT chest abdomen pelvis dated 12/24/2007. TECHNIQUE: Prior to contrast administration, noncontrast localization images were obtained. Subsequently, multidetector volumetric imaging was performed from the thoracic inlet to below the diaphragms following the administration of 95 mL Optiray 320 intravenous contrast. No contrast reaction reported Sagittal, coronal, and MIP oblique sagittal reformatted images were obtained on the CT workstation, uploaded to PACS, and reviewed. Subsequent portal venous phase CT of the abdomen and pelvis was performed with creation of coronal and sagittal reformatted images. Total exam dose-length product 643 mGy-cm FINDINGS: QUALITY OF STUDY/CONTRAST BOLUS: Satisfactory. PULMONARY ARTERIES: No central or segmental pulmonary emboli. THORACIC AORTA: Atherosclerotic calcification in the aortic arch is noted. No thoracic aortic aneurysm or dissection. LUNG: No focal consolidation, nodules or masses. Centrilobular emphysema is noted. PLEURA: No pleural effusion or pneumothorax. MEDIASTINUM: Normal heart size. No pericardial effusion. No hilar or mediastinal lymphadenopathy. No evidence of septal bowing or right heart strain. CHEST WALL/AXILLA: No axillary or internal mammary lymphadenopathy. Thoracolumbar spinal fixation rods are noted. Thoracic vertebral body height is maintained. Sagittal thoracic spinal alignment is maintained. ABDOMEN/PELVIS: LIVER, GALLBLADDER, AND BILIARY TREE: The liver is normal in size, shape, and attenuation. No focal hepatic lesion or biliary ductal dilatation is present. The gallbladder is unremarkable with no evidence of radiopaque gallstones, gallbladder wall thickening, or obvious pericholecystic inflammatory changes. PANCREAS: Normal; no mass or surrounding fluid. SPLEEN: Normal size. No focal lesion. ADRENAL GLANDS: Normal; no mass. KIDNEYS AND URETERS: 3 mm nonobstructive right inferior renal collecting system calculus is noted, smaller than that seen previously. No hydronephrosis or perinephric stranding. GASTROINTESTINAL TRACT: Stomach and small bowel non- dilated. No colonic wall thickening or pericolonic inflammatory changes. Left lower quadrant end colostomy is again noted with parastomal herniation of fat and nonobstructed small bowel. Normal appendix. ABDOMINAL WALL: Rectus diastases is noted. Left lower quadrant colostomy is noted. LYMPHOVASCULAR STRUCTURES: No lymphadenopathy. Aortobiiliac stent graft is again noted. BLADDER: There is mild diffuse bladder wall thickening. No bladder calculi. PELVIC VISCERA: Unremarkable. OSSEOUS STRUCTURES: There is a redemonstrated right sacral decubitus ulcer which extends to the right inferior pubic ramus where there is mixed lucent and sclerotic change compatible with chronic osteomyelitis as previously demonstrated. There appears to be some progression of the ulcer with air now seen extending to the right penile base, and increased fat stranding in the perineal soft tissues which is incompletely assessed. Degenerative changes are noted in the spine and bilateral hips. IMPRESSION: 1. No pulmonary embolism. 2. Centrilobular emphysema. 3. Redemonstrated right sacral decubitus ulcer extending to the right inferior pubic ramus where there are redemonstrated changes of chronic osteomyelitis. There is progression of the ulceration which now extends to the right penile base with new fat stranding in the perineal soft tissue which is incompletely assessed. Consider repeat pelvic CT with contrast with specific instruction to extend the [id number] through the entirety of the perineal soft tissues if there is concern for abscess or fluid collection in this region. 4. Redemonstrated left lower quadrant and colostomy with parastomal herniation of fat and nonobstructed small bowel. 5. Small nonobstructive right inferior pole collecting system renal calculus without hydronephrosis or perinephric stranding. VTE: negative DICTATED BY: Alex Avalos MD DATE/TIME DICTATED:03/11/181842 RESTAURANT MANAGER:DIANA DATE/TIME TRANSCRIBED:03/11/181842 CONFIDENTIAL, DO NOT COPY WITHOUT APPROPRIATE AUTHORIZATION. CXR Impression: PATIENT: GRISEL DORSEY PRESENT AGE: 72 PATIENT ACCOUNT NO: [id number] : 45 LOCATION: [facility] ORDERING PHYSICIAN: Earnest BARRIOS SERVICE DATE: 03/11/18 EXAM TYPE: RAD - XRY-PORTABLE CHEST XRAY EXAMINATION: XR PORTABLE CHEST CLINICAL INFORMATION: Pneumonia, CHF. Shortness of breath, fever. COMPARISON: Chest radiograph dated 12/19/2013. TECHNIQUE: Portable frontal view of the chest was obtained. FINDINGS: Spinal fusion rods are noted. A right-sided PICC line is present. The precise location of the tip is unable to be ascertained as it is superimposed upon the right spinal agueda. No focal consolidation or effusion. Cardiac mediastinal silhouette is within normal limits. No pneumothorax. No acute osseous abnormalities. Mild right acromioclavicular joint arthrosis noted. IMPRESSION: 1. There is a right- sided PICC line. The precise location the tip cannot be ascertained as it is superimposed upon the right spinal agueda. 2. No focal consolidation or effusion. No pneumothorax. 3. Mild right acromioclavicular joint arthrosis. DICTATED BY: Alex Avalos MD DATE/TIME DICTATED:03/11/181540 RESTAURANT MANAGER:DIANA DATE/TIME TRANSCRIBED:03/11/181540 CONFIDENTIAL, DO NOT COPY WITHOUT APPROPRIATE AUTHORIZATION. Initial ED EKG: sinus tachycardia rate [address] depressions Repeat EKG: changed (ST DEPRESSION RESOLVED) (Earnest Villagran) Plan of Care: Orders Procedure Date/time Status Regular Diet 03/11 D Active Patient Data 03/[address] PELVIS WO IV CONTRAST 03/11 194 Active OXYGEN SETUP (GEN) 03/11 1925 Active Saline Lock 03/11 1925 Active Admit to inpatient 03/11 192 Active Vital Signs 03/11 192 Active Activity/Ambulation 03/11 192 Active Code Status 03/11 192 Active TROPONIN LEVEL 03/11 1911 Complete EKG 03/11 1911 Active Add-on Test (ER Only) 03/11 1900 Active CULTURE,URINE 03/11 1815 Active LACTIC ACID 03/11 1719 Complete Add-on Test (ER Only) 03/11 1608 Active C-REACTIVE PROTEIN 03/11 1505 Complete B-TYPE NATRIURETIC PEP (BNP) 03/11 1505 Complete URINALYSIS 03/11 1438 Complete PARTIAL THROMBOPLASTIN TIME 03/11 1438 Complete PROTHROMBIN TIME 03/11 1438 Complete WESTERGREN SED RATE 03/11 1438 Complete D-DIMER 03/11 1438 Complete BLOOD CULTURE 03/11 1419 Active TROPONIN LEVEL 03/11 1419 Complete LACTIC ACID 03/11 1419 Complete COMPREHENSIVE METABOLIC PANEL 03/11 1419 Complete CBC WITHOUT DIFFERENTIAL 03/11 141 Complete EKG 03/11 141 Active Laboratory Tests 03/11/18 1932: Troponin I 0.04 03/11/18 1815: Urine Color YEL, Urine Clarity HAZY H, Urine pH 6.0, Ur Specific Moville 1.020, Urine Protein TRACE H, Urine Ketones NEG, Urine Nitrite NEG, Urine Bilirubin NEG, Urine Urobilinogen 0.2, Ur Leukocyte Esterase SMALL H, Ur Microscopic SEDIMENT EXAMINED, Urine RBC 10-15 H, Urine WBC 10-15 H, Ur Epithelial Cells FEW, Urine Bacteria MOD H, Urine Hemoglobin LARGE H, Urine Glucose 100 H 03/11/18 1800: Lactic Acid 0.9 03/11/18 1505: ESR Westergren 92 H 03/11/18 1505: Anion Gap 14, Estimated GFR > 60, BUN/Creatinine Ratio 30.0 H, Glucose 109 H, Lactic Acid 3.1 H, Calcium 8.1 L, Total Bilirubin 0.3, AST 25, ALT 20 L, Alkaline Phosphatase 127 H, Troponin I 0.03, C-Reactive Prot, Quant > 9.0 H, Vva-O-Bqtynnnumil Pept 834 H, Total Protein 5.9 L, Albumin 2.9 L, Globulin 3.0, Albumin/Globulin Ratio 1.0 L, PT 17.8 H, INR 1.63 H, APTT 31, D-Dimer High Sensitivty 496 H, CBC w Diff MAN DIFF ORDERED, RBC 4.32 L, MCV 57.0 L, MCH 18.2 L, MCHC 31.9 L, RDW 16.9 H, MPV 7.9, Gran % 91.5 H, Lymphocytes % 4.9 L, Monocytes % 3.5, Eosinophils % 0.1, Basophils % 0, Absolute Granulocytes 14.6 H, Segmented Neutrophils 93 H, Band Neutrophils 3, Absolute Lymphocytes 0.8 L, Lymphocytes 2 L, Monocytes 2, Absolute Monocytes 0.6, Absolute Eosinophils 0, Absolute Basophils 0, Platelet Estimate ADEQUATE, Hypochromic- Microcytic 3+, Poikilocytosis 1+, Anisocytosis 2+, Microcytic Cells 2+, Ovalocytes 1+ 03/11/18 1438: C-Reactive Prot, Quant Cancelled Microbiology 03/11 1815 URINE ROUT: Urine Culture - RECD 03/11 1530 BLOOD: Blood Culture - RECD 03/11 1505 BLOOD: Blood Culture - RECD Patient seen and evaluated. He is here with fever shortness of breath chest pressure. This is been going on for 5 or 6 days getting worse. On evaluation he has a fever of 102 and is tachycardic. He is reporting chest pressure. Initial EKG shows sinus tachycardia with some lateral ST wave depressions. This may be rate related. Labs including blood cultures urine culture d-dimer troponins lactic acid ordered. CT scan of the chest on the pelvis ordered. She was medicated with Toradol and Vicodin. He had already taken Tylenol prior to presentation. IV fluids also ordered. Blood work shows multiple abnormalities including anemia elevated white blood cell count elevated CRP and sedimentation rate. Lactic acid is also elevated additional fluids ordered. Chest x-ray is clear. CTA is negative for pneumonia or PE. CT scan of the abdomen and pelvis shows the large pressure ulcer however it is incompletely identified. A repeat CT pelvis was ordered to rule out abscess. Spoke with Dr. RIVAS from infectious disease who recommends continuing vancomycin and adding Fortaz. A repeat EKG was obtained patient is now out of regular rate and afebrile in the ST depressions present in the lateral leads have resolved. This may have been a rate related change. Patient will be admitted to the hospital for further evaluation and treatment. Case discussed with Dr. ALVARADO and he agrees. Repeat lactic acid is normalized. (Jordan BARRIOS,Earnest) (Manju SAMPSON,Danis Salguero) Departure Departure Disposition: STILL A PATIENT Condition: Stable Clinical Impression Primary Impression: Fever Qualifiers: Fever type: unspecified Qualified Code: R50.9 - Fever, unspecified Secondary Impressions: Pressure ulcer of sacral region, stage 4 Referrals: Loco yBnum MD (PCP/Family) Departure Forms: Customer Survey General Discharge Information Admission Note Spoke With: Raina Dior MD Documentation of Exam: Documentation of any treatments & extenuating circumstances including Concerns Regarding Discharge (functional status, medication knowledge or non-compliance, living conditions, etc.) that warrant an admission rather than observation: [IV antibiotics, IV fluids, serial labs, infectious disease consult, SURGICAL CONSULT wound care consult, serial EKGs, IV antipyretics] (Earnest Villagran) PA/TELEVISION REPAIR TEACHER Co-Sign Statement Statement: ED Attending supervision documentation- [X] I saw and evaluated the patient. I have also reviewed all the pertinent lab results and diagnostic results. I agree with the findings and the plan of care as documented in the PA's/TELEVISION REPAIR TEACHER's documentation. Patient presents for evaluation of fever and tremors. Physical examination reveals an alert patient with good color and no respiratory distress. Patient does have mild extremity tremors. [] I have reviewed the ED Record and agree with the PA's/TELEVISION REPAIR TEACHER's documentation. [] Additions or exceptions (if any) to the PAs/TELEVISION REPAIR TEACHER's note and plan are summarized below: [] (Manju SAMPSON,Danis Salguero) Critical Care Note Critical Care Note Critical Care Time: 30-74 min (Earnest Villagran)
[2018-03-11 15:27] LABS: ABSOLUTE BASOPHIL COUNT 0 /CUMM (0.0-0.2); ABSOLUTE EOSINOPHIL COUNT 0 /CUMM (0.0-0.7); ABSOLUTE GRANULOCYTE CT 14.6 /CUMM (1.4-6.5); ABSOLUTE LYMPH COUNT 0.8 /CUMM (1.2-3.4); ABSOLUTE MONOCYTE COUNT 0.6 /CUMM (0.10-0.60); BASOPHIL % 0 % (0.0-2.0); EOSINOPHIL % 0.1 % (0-5); GRANULOCYTE % 91.5 % (42.2-75.2); HEMATOCRIT 24.6 % (42-52); MEAN CORPUSCULAR HGB 18.2 PG (27.0-31.0); MEAN CORPUSCULAR HGB CONC 31.9 G/DL (33.0-37.0); MEAN PLATELET VOLUME 7.9 FL (7.4-10.4); PLATELET COUNT 351 /CUMM (130-400); RBC DISTRIBUTION WIDTH 16.9 % (11.5-14.5); RED BLOOD CELL CT 4.32 /CUMM (4.70-6.10)
[2018-03-11 15:41] LABS: PT 17.8 SEC (9.4-12.5); PTT 31 SEC (25-37)
--- NOTE | 2018-03-11 15:46 | RADIOLOGY REPORT ---
EXAMINATION: XR PORTABLE CHEST CLINICAL INFORMATION: Pneumonia, CHF. Shortness of breath, fever. COMPARISON: Chest radiograph dated 12/19/2013. TECHNIQUE: Portable frontal view of the chest was obtained. FINDINGS: Spinal fusion rods are noted. A right-sided PICC line is present. The precise location of the tip is unable to be ascertained as it is superimposed upon the right spinal agueda. No focal consolidation or effusion. Cardiac mediastinal silhouette is within normal limits. No pneumothorax. No acute osseous abnormalities. Mild right acromioclavicular joint arthrosis noted. IMPRESSION: 1. There is a right-sided PICC line. The precise location the tip cannot be ascertained as it is superimposed upon the right spinal agueda. 2. No focal consolidation or effusion. No pneumothorax. 3. Mild right acromioclavicular joint arthrosis.
--- NOTE | 2018-03-11 19:08 | CT SCAN REPORT ---
EXAMINATION: CT ANGIOGRAM OF THE CHEST WITH AND WITHOUT CONTRAST (CT PULMONARY ANGIOGRAM FOR PE) CT ABDOMEN AND PELVIS WITH CONTRAST CLINICAL INFORMATION: Shortness of breath, chest pressure, cough, sepsis, large sacral pressure ulcer. COMPARISON: CT abdomen and pelvis dated 12/21/2013, CT chest abdomen pelvis dated 12/24/2007. TECHNIQUE: Prior to contrast administration, noncontrast localization images were obtained. Subsequently, multidetector volumetric imaging was performed from the thoracic inlet to below the diaphragms following the administration of 95 mL Optiray 320 intravenous contrast. No contrast reaction reported Sagittal, coronal, and MIP oblique sagittal reformatted images were obtained on the CT workstation, uploaded to PACS, and reviewed. Subsequent portal venous phase CT of the abdomen and pelvis was performed with creation of coronal and sagittal reformatted images. Total exam dose-length product 643 mGy-cm FINDINGS: QUALITY OF STUDY/CONTRAST BOLUS: Satisfactory. PULMONARY ARTERIES: No central or segmental pulmonary emboli. THORACIC AORTA: Atherosclerotic calcification in the aortic arch is noted. No thoracic aortic aneurysm or dissection. LUNG: No focal consolidation, nodules or masses. Centrilobular emphysema is noted. PLEURA: No pleural effusion or pneumothorax. MEDIASTINUM: Normal heart size. No pericardial effusion. No hilar or mediastinal lymphadenopathy. No evidence of septal bowing or right heart strain. CHEST WALL/AXILLA: No axillary or internal mammary lymphadenopathy. Thoracolumbar spinal fixation rods are noted. Thoracic vertebral body height is maintained. Sagittal thoracic spinal alignment is maintained. ABDOMEN/PELVIS: LIVER, GALLBLADDER, AND BILIARY TREE: The liver is normal in size, shape, and attenuation. No focal hepatic lesion or biliary ductal dilatation is present. The gallbladder is unremarkable with no evidence of radiopaque gallstones, gallbladder wall thickening, or obvious pericholecystic inflammatory changes. PANCREAS: Normal; no mass or surrounding fluid. SPLEEN: Normal size. No focal lesion. ADRENAL GLANDS: Normal; no mass. KIDNEYS AND URETERS: 3 mm nonobstructive right inferior renal collecting system calculus is noted, smaller than that seen previously. No hydronephrosis or perinephric stranding. GASTROINTESTINAL TRACT: Stomach and small bowel non-dilated. No colonic wall thickening or pericolonic inflammatory changes. Left lower quadrant end colostomy is again noted with parastomal herniation of fat and nonobstructed small bowel. Normal appendix. ABDOMINAL WALL: Rectus diastases is noted. Left lower quadrant colostomy is noted. LYMPHOVASCULAR STRUCTURES: No lymphadenopathy. Aortobiiliac stent graft is again noted. BLADDER: There is mild diffuse bladder wall thickening. No bladder calculi. PELVIC VISCERA: Unremarkable. OSSEOUS STRUCTURES: There is a redemonstrated right sacral decubitus ulcer which extends to the right inferior pubic ramus where there is mixed lucent and sclerotic change compatible with chronic osteomyelitis as previously demonstrated. There appears to be some progression of the ulcer with air now seen extending to the right penile base, and increased fat stranding in the perineal soft tissues which is incompletely assessed. Degenerative changes are noted in the spine and bilateral hips. IMPRESSION: 1. No pulmonary embolism. 2. Centrilobular emphysema. 3. Redemonstrated right sacral decubitus ulcer extending to the right inferior pubic ramus where there are redemonstrated changes of chronic osteomyelitis. There is progression of the ulceration which now extends to the right penile base with new fat stranding in the perineal soft tissue which is incompletely assessed. Consider repeat pelvic CT with contrast with specific instruction to extend the [id number] through the entirety of the perineal soft tissues if there is concern for abscess or fluid collection in this region. 4. Redemonstrated left lower quadrant and colostomy with parastomal herniation of fat and nonobstructed small bowel. 5. Small nonobstructive right inferior pole collecting system renal calculus without hydronephrosis or perinephric stranding. VTE: negative
--- NOTE | 2018-03-11 20:45 | History & Physical ---
Nirali SAMPSON,Jl 03/11/182044: General Information and HPI MD Statement: I have seen and personally examined GRISEL DORSEY and documented this H&P. The patient is a 72 year old M who presented with a patient stated chief complaint of [fever]. Source of Information: patient, family, old records Exam Limitations: no limitations History of Present Illness: Patient is a 72-year-old male with a PMH significant for paraplegia, chronic right sacral decubitus ulcer, osteomyelitis, recurrent UTIs, diabetes mellitus type 2, CAD status post CABG and stent placement in [address] 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 Patient's symptoms began approximately 1-1/2 months ago with intermittent fevers , drenching sweats, and shaking chills. Patient also noted worsening of his chronic sacral decubitus ulcer for which she follows at [facility] wound care with Dr. Pompa, who recently started the patient on IV vancomycin and had a PICC line placed. Patient also underwent a minor debridement by Dr. Pompa. Within the last week patient's vancomycin dose was doubled from 1 g daily to 1 g twice daily based on low vancomycin levels. Over the past week prior to presentation patient also noted intermittent shortness of breath and a substernal, nonradiating, chest pressure like pain. Since the onset of his symptoms patient has had poor appetite although has been staying hydrated. Patient notes that his urine has been non-cloudy and not foul-smelling. Patient had been taking iron supplementation for his chronic anemia however he ran out of iron supplements and was recently restarted when he to have low H/H, he has not recently received a transfusion. Of note patient reports having similar symptoms several years ago and had an extensive workup which yielded no definitive infectious results and he was deemed to have fevers of unknown origin. Since starting vancomycin patient has noted looser consistency of his ostomy output but no dark or bloody stool. patient denies any lightheadedness, syncope, nausea, vomiting. Allergies/Medications Allergies: Coded Allergies: erythromycin base (RASH 02/17/18) Home Med list Acetaminophen (Tylenol Extra Strength) 500 MG TABLET 2 TAB PO TID PAIN ( Reported) Amlodipine Besylate 5 MG TABLET 1 TAB PO DAILY HTN (Reported) Ascorbic Acid (Vitamin C) 500 MG CAPSULE.ER 1 CAP PO DAILY SUPPLEMENT ( Reported) Aspirin (Children's Aspirin) 81 MG TAB.CHEW 81 TAB PO DAILY HEART HEALTH ( Reported) Atenolol 25 MG TABLET 1 TAB PO DAILY HTN (Reported) Atorvastatin Calcium 20 MG TABLET 1 TAB PO DAILY HLD (Reported) Cholecalciferol (Vitamin D3) (Vitamin D) 1,000 UNIT TABLET 1 TAB PO DAILY SUPPLEMENT (Reported) Ciprofloxacin HCl 500 MG TABLET 1 TAB PO ONCE PROHPHYLAXIS (Reported) Ferrous Sulfate 325 MG (65 MG IRON) TABLET 1 TAB PO BID ANEMIA (Reported) Gabapentin 300 MG CAPSULE 2 CAP PO TID UNKNOWN (Reported) Glipizide (Glipizide ER) 5 MG TAB.ER.24 1 TAB PO DAILY DM (Reported) Hydrochlorothiazide 25 MG TABLET 1 TAB PO DAILY PRN PAIN (Reported) Hydrocodone/Acetaminophen (Hydrocodon-Acetaminoph 7.5-325) 7.5 MG-325 MG TABLET 1 TAB PO TIDPRN PRN PAIN (Reported) Metformin HCl 1,000 MG TABLET 1 TAB PO BID DM (Reported) Past History Travel History Traveled to [place] past 21 day No Medical History Neurological: Paraplegia EENT: NONE Cardiovascular: CAD, hypertension, hyperlipidemia Respiratory: NONE Gastrointestinal: NONE Hepatic: NONE Renal: NONE Musculoskeletal: decubitis ulcer Psychiatric: NONE Endocrine: diabetes Blood Disorders: anemia Cancer(s): NONE DIGITAL MARKETING COORDINATOR/Reproductive: NONE, trichomoniasis Other Medical Hx: BPH, Multiple UTIs, Urethral strictures, Urinary retention History of MRSA: Yes History of VRE: No History of CDIFF: No Surgical History Surgical History: CABG, colostomy Past Family/Social History Family History Relations & Conditions if any MOTHER FH: breast cancer FH: hypertension FH: lung cancer uncle FH: cancer Psychosocial History Where do you live? Home Who Do You Live With? spouse Services at Home: Home Health Aide, Nursing Primary Language: Luxembourgish Smoking Status: Former Smoker ETOH Use: denies use Illicit Drug Use: denies illicit drug use Functional Ability ADLs Needs Assist: dressing, eating, toileting, bathing. Ambulation: Paraplegic-uses a wheelchair Review of Systems Review of Systems Constitutional: Reports: chills, diaphoresis, fever. EENTM: Denies: blurred vision, double vision, visual changes. Cardiovascular: Reports: chest pain (pressure like pain). Denies: palpitations, syncope. Respiratory: Reports: short of breath. Denies: cough, hemoptysis. GI: Denies: abdominal pain, bloating, constipation, melena, nausea, bloody stool, vomiting. Genitourinary: Denies: dysuria, frequency, hematuria. Musculoskeletal: Reports: no symptoms. Skin: Reports: see HPI. Neurological/Psychological: Reports: no symptoms. Exam & Diagnostic Data Last 24 Hrs of Vital Signs/I&O Vital Signs Date Time Temp Pulse Resp B/P B/P Pulse O2 O2 Flow FiO2 Mean Ox Delivery Rate 03/11 2149 98.3 90 18 132/58 97 Room Air 03/11 1928 98.5 92 20 132/60 98 Room Air 03/11 1626 96 Room Air 03/11 1625 100.0 108 22 135/60 96 Room Air 03/11 1431 102.4 124 22 168/70 95 Room Air Intake & Output 03/11 1600 03/11 0800 03/11 0000 Intake Total 0 Output Total 0 Balance 0 Intake, Oral 0 Output, Urine 0 Patient 150 lb Weight Weight Reported by Patient Measurement Method Physical Exam General Appearance Alert, Oriented X3, Cooperative, No Acute Distress Skin Large R sacral decubitous ulcer on the R buttock extendin through the perineum up to the scrotum, sorrounding granulation tissue with erythematous base Sepsis Skin Exam (color): Normal for Ethnicity HEENT Atraumatic, PERRLA, EOMI, Mucous Membr. moist/pink Cardiovascular Regular Rate, Normal S1, Normal S2, No Murmurs, surgical scar on chest noted Lungs Clear to Auscultation, Normal Air Movement Abdomen ostomy bag on LLQ, mild tenderness to deep palpation in RUQ and epigastric area Neurological Normal Speech, Cranial Nerves 3-12 NL, no sensation and 0/5 strength of lower extremities Sepsis Peripheral Pulse Location: Radial Sepsis Peripheral Pulse Exam: Normal Sepsis Cap Refill Exam: <2 Sec Reproductive (MALE) Normal male genitalia Last 24 Hrs of Labs/Willie: Laboratory Tests 03/11/18 1932: Troponin I 0.04 03/11/181814: Urine Color YEL, Urine Clarity HAZY H, Urine pH 6.0, Ur Specific Anderson 1.020, Urine Protein TRACE H, Urine Ketones NEG, Urine Nitrite NEG, Urine Bilirubin NEG, Urine Urobilinogen 0.2, Ur Leukocyte Esterase SMALL H, Ur Microscopic SEDIMENT EXAMINED, Urine RBC 10-15 H, Urine WBC 10-15 H, Ur Epithelial Cells FEW, Urine Bacteria MOD H, Urine Hemoglobin LARGE H, Urine Glucose 100 H 03/11/18 1800: Lactic Acid 0.9 03/11/18 1505: ESR Westergren 92 H 03/11/18 1505: Anion Gap 14, Estimated GFR > 60, BUN/Creatinine Ratio 30.0 H, Glucose 109 H, Lactic Acid 3.1 H, Calcium 8.1 L, Total Bilirubin 0.3, AST 25, ALT 20 L, Alkaline Phosphatase 127 H, Troponin I 0.03, C-Reactive Prot, Quant > 9.0 H, Icu-G-Skxmsufnopv Pept 834 H, Total Protein 5.9 L, Albumin 2.9 L, Globulin 3.0, Albumin/Globulin Ratio 1.0 L, PT 17.8 H, INR 1.63 H, APTT 31, D-Dimer High Sensitivty 496 H, CBC w Diff MAN DIFF ORDERED, RBC 4.32 L, MCV 57.0 L, MCH 18.2 L, MCHC 31.9 L, RDW 16.9 H, MPV 7.9, Gran % 91.5 H, Lymphocytes % 4.9 L, Monocytes % 3.5, Eosinophils % 0.1, Basophils % 0, Absolute Granulocytes 14.6 H, Segmented Neutrophils 93 H, Band Neutrophils 3, Absolute Lymphocytes 0.8 L, Lymphocytes 2 L, Monocytes 2, Absolute Monocytes 0.6, Absolute Eosinophils 0, Absolute Basophils 0, Platelet Estimate ADEQUATE, Hypochromic- Microcytic 3+, Poikilocytosis 1+, Anisocytosis 2+, Microcytic Cells 2+, Ovalocytes 1+ 03/11/18 1438: C-Reactive Prot, Quant Cancelled Microbiology 03/11 2153 BLOOD: Blood Culture - ORD 03/11 1815 URINE ROUT: Urine Culture - RECD 03/11 1530 BLOOD: Blood Culture - RECD 03/11 1505 BLOOD: Blood Culture - RECD Diagnostic Data EKG Results Sinus tachycardia HR [address]-T changes likely secondary to tachycardia because they resolved on repeat EKG which showed sinus rhythm HR 90 QTC 475 CXR Results Spinal fusion rods are noted. A right-sided PICC line is present. The precise location of the tip is unable to be ascertained as it is superimposed upon the right spinal agueda. No focal consolidation or effusion. Cardiac mediastinal silhouette is within normal limits. No pneumothorax. No acute osseous abnormalities. Mild right acromioclavicular joint arthrosis noted. IMPRESSION: 1. There is a right-sided PICC line. The precise location the tip cannot be ascertained as it is superimposed upon the right spinal agueda. 2. No focal consolidation or effusion. No pneumothorax. 3. Mild right acromioclavicular joint arthrosis. Other Results CTA chest/abd/pelvis QUALITY OF STUDY/CONTRAST BOLUS: Satisfactory. PULMONARY ARTERIES: No central or segmental pulmonary emboli. THORACIC AORTA: Atherosclerotic calcification in the aortic arch is noted. No thoracic aortic aneurysm or dissection. LUNG: No focal consolidation, nodules or masses. Centrilobular emphysema is noted. PLEURA: No pleural effusion or pneumothorax. MEDIASTINUM: Normal heart size. No pericardial effusion. No hilar or mediastinal lymphadenopathy. No evidence of septal bowing or right heart strain. CHEST WALL/AXILLA: No axillary or internal mammary lymphadenopathy. Thoracolumbar spinal fixation rods are noted. Thoracic vertebral body height is maintained. Sagittal thoracic spinal alignment is maintained. ABDOMEN/PELVIS: LIVER, GALLBLADDER, AND BILIARY TREE: The liver is normal in size, shape, and attenuation. No focal hepatic lesion or biliary ductal dilatation is present. The gallbladder is unremarkable with no evidence of radiopaque gallstones, gallbladder wall thickening, or obvious pericholecystic inflammatory changes. PANCREAS: Normal; no mass or surrounding fluid. SPLEEN: Normal size. No focal lesion. ADRENAL GLANDS: Normal; no mass. KIDNEYS AND URETERS: 3 mm nonobstructive right inferior renal collecting system calculus is noted, smaller than that seen previously. No hydronephrosis or perinephric stranding. GASTROINTESTINAL TRACT: Stomach and small bowel non-dilated. No colonic wall thickening or pericolonic inflammatory changes. Left lower quadrant end colostomy is again noted with parastomal herniation of fat and nonobstructed small bowel. Normal appendix. ABDOMINAL WALL: Rectus diastases is noted. Left lower quadrant colostomy is noted. LYMPHOVASCULAR STRUCTURES: No lymphadenopathy. Aortobiiliac stent graft is again noted. BLADDER: There is mild diffuse bladder wall thickening. No bladder calculi. PELVIC VISCERA: Unremarkable. OSSEOUS STRUCTURES: There is a redemonstrated right sacral decubitus ulcer which extends to the right inferior pubic ramus where there is mixed lucent and sclerotic change compatible with chronic osteomyelitis as previously demonstrated. There appears to be some progression of the ulcer with air now seen extending to the right penile base, and increased fat stranding in the perineal soft tissues which is incompletely assessed. Degenerative changes are noted in the spine and bilateral hips. IMPRESSION: 1. No pulmonary embolism. 2. Centrilobular emphysema. 3. Redemonstrated right sacral decubitus ulcer extending to the right inferior pubic ramus where there are redemonstrated changes of chronic osteomyelitis. There is progression of the ulceration which now extends to the right penile base with new fat stranding in the perineal soft tissue which is incompletely assessed. Consider repeat pelvic CT with contrast with specific instruction to extend the [id number] through the entirety of the perineal soft tissues if there is concern for abscess or fluid collection in this region. 4. Redemonstrated left lower quadrant and colostomy with parastomal herniation of fat and nonobstructed small bowel. 5. Small nonobstructive right inferior pole collecting system renal calculus without hydronephrosis or perinephric stranding. VTE: negative Pelvis CT PELVIS: A large right sacral decubitus ulcer is again noted which extends to the base of the right penis in the inferior aspect of the right symphysis pubis where there is what may be a small abscess measuring approximately 1.3 x 1.3 cm on axial image 42 of series 2. There is asymmetric hypoattenuation and soft tissue gas in the right corpora cavernosum near at the base of the penis adjacent to the collection inferior to the right symphysis pubis. There is stranding and thickening of the proximal right abductor muscles. There are a few separate foci of soft tissue gas tracking more inferiorly within the posterior perineal soft tissues. Otherwise unchanged appearance of the visualized pelvis. Extensive atherosclerotic vascular calcification is again noted. IMPRESSION: There appears to be a small abscess just inferior to the right symphysis pubis. There is an adjacent abscess contained within the right corpora cavernosum. There are a few additional foci of soft tissue gas tracking more inferiorly within the posterior perineal soft tissues. Assessment/Plan Assessment: Patient is a 72-year-old male with a PMH significant for paraplegia, chronic right sacral decubitus ulcer, osteomyelitis, recurrent UTIs, diabetes mellitus type 2, CAD status post CABG and stent placement in [address] 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 Patient has noted worsening of his chronic sacral decubitus ulcer which was recently debrided by his commissions specialist Dr. Pompa. He was started on IV vancomycin. He has continued to have persistent fevers, drenching sweats, shaking chills. CT pelvis shows chronic osteomyelitis, soft tissue gas tracking and an abscess in the right corpus cavernosum. The images were reviewed by the attending physician Dr. Dior with the polymerization supervisor surgeon, Dr. Parekh. Vital signs on admission: T-max 102.4, P124 (decreased to 90), RR 22, BP 168/70, pulse ox 95% on room air Labs: WBC 16 H/H 7.9/24.6, MCV 57, platelets 351, bands 3, ESR 92, sodium 136, potassium 3.3, chloride 97, CO2 26, BUN 15, creatinine 0.5, glucose 109, Lactic acid 3.1 (trended down to 0.9), alk phos 127, troponin 0 0.03, 0.04, CRP greater than 9, proBNP 834, total protein 5.9, albumin 2.9, PT 17.8, d-dimer 496, UA: Hazy, trace protein, small LE, RBC 1015, WBC 1015, bacteria moderate, hemoglobin large, glucose 100 Initial EKG showed sinus tachycardia with nonspecific ST-T changes, these changes resolved with repeat EKG when tachycardia had resolved. Problem list #Sepsis likely secondary to osteomyelitis or cellulitis, SIRS criteria met include leukocytosis, tachycardia, tachypnea, fever #chronic microcytic anemia #Hypokalemia #Chronic medical problems including CAD, paraplegia, type 2 diabetes mellitus, PVD Plan -Admit to general medicine -1 more troponin and EKG in a.m. to rule out ACS -Continue IV vancomycin 1 g twice daily, start IV ceftazidime 1 g -Infectious disease consult to be placed in a.m. -general surgery consult placed with the answering service of Bernardino Parekh MD -Plastic surgery consult placed with the answering service of Dr. Krueger -Wound care consult -Vicodin as needed for pain -Blood and urine cultures, of note blood could not be obtained from the PICC line for cultures -Hold antihypertensive medication for now, restart his PPI last -Hold oral diabetes medications, will start NovoLog sliding scale with Accu- Cheks 3 times daily before meals and at bedtime -Potassium repleted, will follow up with BEP in a.m. and replete as needed Diet: Heart healthy DVT prophylaxis: Subcutaneous heparin, no Alps given history of PVD CODE STATUS: Full code As Ranked By This Provider Problem List: 1. Pressure ulcer of sacral region, stage 4 2. Fever Qualifiers Fever type: unspecified Qualified Code: R50.9 - Fever, unspecified 3. Osteomyelitis Core Measures/Misc (06/12) Acute Coronary Syndrome ACS Diagnosis: No Congestive Heart Failure Congestive Heart Failure Diagnosis No Cerebrovascular Accident CVA/TIA Diagnosis: No VTE (View Protocol) VTE Risk Factors Age>40 No Mechanical VTE Prophylaxis d/t Medical Contraindication No VTE Pharm Prophylaxis d/t NA PharmProphylax ordered Sepsis (View protocol) Sepsis Present: Yes If YES complete Sepsis Event Note If YES complete Sepsis Event Note Von SAMPSON,[facility] 03/12/18 0042: Core Measures/Misc (06/12) Sepsis (View protocol) If YES complete Sepsis Event Note If YES complete Sepsis Event Note Resident Review Statement Resident Statement: examined this patient, discussed with internet sales consultant, agreed with internet sales consultant Other Findings: HPI: 72/M with PMHx of chronic sacral decubitus ulcer, osteomyelitis paraplegia, recurrent UTIs, NIDDM, CAD s/p stenting & GABG, HTN, HLD, thalassemia, PVD s/p bilateral LE venous stenting who presented to the ED complaining of intermittent fever and chills. Symptoms started around 1-2 months ago as intermittent fever, diaphoresis, and chills. The patient is following with [facility] wound care for decubitus ulcer, recently it was noticed that his decubitus ulcer is getting worse which she was started on IV vancomycin through a PICC line. During the last week he was found to have subtherapeutic vancomycin level for which the dose was doubled from 1 g daily to 1 g twice a day. The patient reports poor appetite, intermittent shortness breath, and substernal nonradiating pressure- like chest pain. He denies palpitation, cough, or sputum. Vitals: [id number], HR 90s-120s, hemodynamically stable and saturating well on room air Labs: Leukocytosis of 16 with bands of 3, H&H 7.9/24, INR 1.6, ESR 92, CRP more than 9, potassium 3.3, lactic acid 3.1 improved after IV hydration, negative first set of troponin, d-dimer 496, and asymptomatic dirty UA. Imaging: CXR no active pathology. CTA chest revealed no PE, centrilobular emphysema. Abdominal pelvis CT showed right sacral decubitus ulcer extending to the right inferior pubic ramus and Small nonobstructive right inferior pole collecting system renal calculus without hydronephrosis or perinephric stranding. Physical Exam, refer to the interim. Problem list: * Sepsis most likely secondary to sacral ulcer complicated by osteomyelitis and possible abscess * None functional PICC line * Recurrent UTI, chronic bacteriuria * Substernal chest pain associated with dyspnea with hx of CAD s/p stenting and CABG * Chronic microcytic anemia most likely secondary to iron deficiency * Hypertension * Hyperlipidemia * PVD status post venous stenting * Paraplegia Plan: * Admit to general medicine floor * Continue IV vancomycin and ceftazidime * Check Vanco level in the morning * Surgical consult for questionable abscess on CT * Rule out ACS with serial troponin and EKG * PICC line is no working, may need to be removed and sent for culture * Place a new PICC line * Wound consult decubitus ulcer * ID consult for antibiotic recommendations * Pain management as necessary wilth Vicodin * We will DC all oral antihyperglycemic and start insulin SS * Hold all antihypertensive medication given sepsis * Continue the rest of home medication -Heart healthy diet -DVT PPX with ALPS and SC hep -FC Ovi SAMPSON, [facility] 03/12/18 0447: Core Measures/Misc (06/12) Sepsis (View protocol) If YES complete Sepsis Event Note If YES complete Sepsis Event Note Attending MD Review Statement Attending Statement Attending MD Statement: examined this patient, discuss w/resident/PA/BOND CLERK, agreed w/resident/PA/BOND CLERK, discussed with family, reviewed images, amended to note Attending Assessment/Plan: 72 yo M with h/o paraplegia from spinal cord injury (), T2DM, CAD s/p CABG and stents, HTN, PVD s/p b/l stents, thalasemia minor, BPH, urethral strictures, recurrent UTI on chronic suppression with Cipro, chronic right ischial wound with previous osteomyelitis s/p multiple skin grafts with closure not successful , s/p colostomy, urinary retention for which he catheterizes once a day, who presented to the ER for ongoing fever, shaking chills for the past 1.5 months. Patient follows up at [facility] wound care center with Dr. Pompa. Due to ongoing fevers and increasing discharge from the sacral wound and for concerns of acute on chronic osteomyelitis, patient was started on IV Vancomycin once daily and this was increased to BID dosing. Patient had a PICC line placed on February 17 at [facility]. Debridement was done in the office and cultures were sent. Patient also reports intermittent substernal chest pressure with shortness of breath. He denies palpitations or lightheadedness. He has chronic anemia and ran out of his iron supplements due to which his H/H is in the low range (7-9). His PCP recently put him back on iron supplements. Patient denies any melena or BRB from colostomy. Vitals: [id number], HR 90-120's, BP 132/60, sats 96% RA. Exam as above with large right sacral wound extending into the perineum and scrotum with surrounding erythema. No obvious purulent discharge. Colostomy site C/D/I, Right PICC line site clean. Labs: WBC 16, H/H 7.9/24.6, Plt 351, bands 3, ESR 92, INR 1.63, D-dimer 496, Na 136, K 3.3, glucose 109, lactic acid 3.1, trop neg, CRP elevated. UA small LE, WBC 10-15, RBC 10-15, moderate bacteria. CXR: right sided PICC in place, tip location not ascertained as superimposed on spinal agueda, no pneumonia. CTA chest, abdomen/pelvis: no PE. Emphysema, right sacral decubitus ulcer extending to right inferior pubic ramus chronic osteomyelitis, progression of ulceration that now extends to right penile base. CT pelvis without contrast: small abscess inferior to right symphysis pubis, adjacent abscess within right corpora cavernosum, few additional foci of soft tissue gas tracking within posterior perineal soft tissues. EKG: sinus tachycardia, with <[address] depressions in V5-6 likely tachycardia induced. Repeat EKG was sinus rhythm with resolution of the ST changes. Echo (2013): EF > 65%, stage 1 diastolic dysfunction. Guaiac negative on colostomy stool. Assessment and plan: 1. Severe sepsis 2. Acute on chronic osteomyelitis of right sacral decubitus ulcer with possible underlying abscess formation 3. Rule out PICC line sepsis 4. Recurrent UTI with chronic bacteriuria 5. Chest pain with dyspnea related to sepsis 6. Chronic microcytic anemia 7. CAD, PVD, T2DM, HTN, paraplegia - Admit to General medicine - Panculture - IV ceftaz and vanco given previous trunk cultures grown MRSA, enterococcus, MSSA, bacteroides. - Check random vanc level in AM - Gentle hydration, trend lactic acid - Surgery consult (I personally reviewed the initial CT image with Dr. Valdes which was not suggestive of any abscess collection, gas tracking is due to the wide open wound). Repeat CT needs to be reviewed with Surgery given concern for abscess - Plastic Surgery consult - ID consult - Please note, there was no blood return on the PICC line hence we are unable to use the PICC line. - Rule out ACS with serial EKG and troponin - Pain management with vicodin - Diabetes management - Resume all home meds except for BP meds DVT ppx Hep SC. Full code.
--- NOTE | 2018-03-11 21:07 | CT SCAN REPORT ---
EXAMINATION: CT PELVIS WITHOUT CONTRAST CLINICAL INFORMATION: Abscess. COMPARISON: CT abdomen and pelvis from earlier today. TECHNIQUE: Helical scanning was performed with submillimeter collimation through the pelvis. Sagittal and coronal multiplanar 2-D reconstructions were obtained. DLP: 257 mGy-cm FINDINGS: PELVIS: A large right sacral decubitus ulcer is again noted which extends to the base of the right penis in the inferior aspect of the right symphysis pubis where there is what may be a small abscess measuring approximately 1.3 x 1.3 cm on axial image 42 of series 2. There is asymmetric hypoattenuation and soft tissue gas in the right corpora cavernosum near at the base of the penis adjacent to the collection inferior to the right symphysis pubis. There is stranding and thickening of the proximal right abductor muscles. There are a few separate foci of soft tissue gas tracking more inferiorly within the posterior perineal soft tissues. Otherwise unchanged appearance of the visualized pelvis. Extensive atherosclerotic vascular calcification is again noted. IMPRESSION: There appears to be a small abscess just inferior to the right symphysis pubis. There is an adjacent abscess contained within the right corpora cavernosum. There are a few additional foci of soft tissue gas tracking more inferiorly within the posterior perineal soft tissues.
--- NOTE | 2018-03-11 21:25 | Admission Certification ---
Admission Certification Certification Statement - As attending physician, I certify that at the time of - admission, based on clinical presentation, severity of - symptoms, need for further diagnostic testing and - therapeutic interventions, and risk of adverse outcomes - without in-hospital treatment, in my clinical assessment, - this patient requires an acute hospital stay for a minimum - of two nights or longer. I have also considered psychsocial - factors such as support system, advanced age, financial - issues, cognitive issues, and failed out-patient treatments, - past re-admission history, safety of patient, and lack of - compliance as applicable. Specific rationale supporting this admission is: Sepsis, right decubitus ulcer with chronic osteomyelitis with possibly underlying abscess, need to rule out PICC line infection.
[2018-03-11] MEDS ORDERED: CIPROFLOXACIN500 M2 PO (22:00)
[2018-03-11] MEDS ORDERED: CHILDREN'S ASPI81 M1 PO (22:02)
[2018-03-11] MEDS ORDERED: HYDROCHLOROTHIA25 M1 PO (22:03)
[2018-03-11] MEDS ORDERED: AMLODIPINE BESYL5 M1 PO (22:04)
[2018-03-11] MEDS ORDERED: ATENOLOL25 M1 PO (22:04)
[2018-03-11] MEDS ORDERED: GLIPIZIDE ER5 M1 PO (22:05)
[2018-03-11] MEDS ORDERED: METFORMIN HCL1000 M1 PO (22:05)
[2018-03-11] MEDS ORDERED: ATORVASTATIN CA20 M1 PO (22:05)
[2018-03-11] MEDS ORDERED: HYDROCODON-ACE1 EAC3 PO (22:06)
[2018-03-11] MEDS ORDERED: VITAMIN D1000 UNIT PO (22:08)
[2018-03-11] MEDS ORDERED: FERROUS SULFAT325 M3 PO (22:08)
[2018-03-11] MEDS ORDERED: VITAMIN C500 M7 PO (22:08)
[2018-03-11 23:30] VITALS: BP 122/62
[2018-03-12 06:12] VITALS: BP 140/62
[2018-03-12] MEDS ORDERED: GABAPENTIN300 M2 PO (08:05)
[2018-03-12] MEDS ORDERED: TYLENOL EXTRA500 M2 PO (08:06)
[2018-03-12 08:25] LABS: ABSOLUTE BASOPHIL COUNT 0 /CUMM (0.0-0.2); ABSOLUTE EOSINOPHIL COUNT 0.1 /CUMM (0.0-0.7); ABSOLUTE MONOCYTE COUNT 0.7 /CUMM (0.10-0.60); BASOPHIL % 0.1 % (0.0-2.0); HEMATOCRIT 21.3 % (42-52); RBC DISTRIBUTION WIDTH 17.4 % (11.5-14.5)
[2018-03-12 08:28] LABS: ABSOLUTE GRANULOCYTE CT 9.8 /CUMM (1.4-6.5); ABSOLUTE LYMPH COUNT 1.5 /CUMM (1.2-3.4); EOSINOPHIL % 0.6 % (0-5); GRANULOCYTE % 81.4 % (42.2-75.2); MEAN CORPUSCULAR HGB 18.1 PG (27.0-31.0); MEAN CORPUSCULAR HGB CONC 32.1 G/DL (33.0-37.0); MEAN CORPUSCULAR VOLUME 56.5 FL (80.0-94.0); MEAN PLATELET VOLUME 8.1 FL (7.4-10.4); PLATELET COUNT 345 /CUMM (130-400); RED BLOOD CELL CT 3.76 /CUMM (4.70-6.10)
--- NOTE | 2018-03-12 08:43 | PN- Housestaff ---
Marco SAMPSON,Buddy 03/12/18 0842: Subjective Follow-up For: Sepsis Subjective: Patient is seen and examined at bedside. He was seated comfortbaly in bed. He denies any overnight chills/fevers, shortness of breath chest pain or palpitation. Review of Systems Constitutional: Reports: see HPI. Objective Last 24 Hrs of Vital Signs/I&O Vital Signs Date Time Temp Pulse Resp B/P B/P Pulse O2 O2 Flow FiO2 Mean Ox Delivery Rate 03/12 1435 98.8 91 20 140/60 97 Room Air 03/12 0847 95 140/62 03/12 0612 97.9 95 20 140/62 96 / 2330 98.0 88 20 122/62 98 Room Air 03/11 2330 98.0 20 122/62 96 Room Air 03/11 2149 98.3 90 18 132/58 97 Room Air 03/11 1928 98.5 92 20 132/60 98 Room Air Intake & Output 03/12 1600 03/12 0800 03/12 0000 Intake Total 1150 Output Total 600 700 450 Balance 550 -700 -450 Intake, Blood 350 Product Intake, Oral 800 Output, Urine 600 700 450 Patient 63.56 kg 63.049 kg Weight Weight Bed scale Bed scale Measurement Method Physical Exam General Appearance: Alert, Oriented X3, Cooperative, No Acute Distress Other Physical Findings: Skin Large R sacral decubitous ulcer on the R buttock extendin through the perineum up to the scrotum, sorrounding granulation tissue with erythematous base HEENT Atraumatic, PERRLA, EOMI, Mucous Membr. moist/pink Cardiovascular Regular Rate, Normal S1, Normal S2, No Murmurs, surgical scar on chest noted Lungs Clear to Auscultation, Normal Air Movement Abdomen ostomy bag on LLQ, mild tenderness to deep palpation in RUQ and epigastric area Neurological Normal Speech, Cranial Nerves 3-12 NL, no sensation and 0/5 strength of lower extremities Reproductive (MALE) Normal male genitalia Current Medications: Current Medications Sig/Santhosh Start time Last Medication Dose Route Stop Time Status Admin Aspirin 6,561 MG DAILY 03/12 0900 CAN PO Aspirin 81 MG DAILY 03/12 09 AC 03/12 PO 0847 Atenolol 25 MG DAILY 03/12 0900 AC 03/12 PO 0847 Atorvastatin Calcium 20 MG 1700 03/12 1700 AC 03/12 PO 1657 Ceftazidime 1,000 MG Q8H 03/12 0600 03/12 IV 1410 Ferrous Sulfate 325 MG BID 03/12 0900 AC 03/12 PO 0847 Gabapentin 600 MG TID 03/12 0903 03/12 PO 1407 Heparin Sodium 5,000 UNIT Q8 03/12 0600 AC 03/12 (Porcine) SC 1407 Hydrocodone Bitart/ 1 TAB Q6P PRN 03/12 1515 AC 03/12 Acetaminophen PO 1512 Hydrocodone Bitart/ 15 ML Q6P PRN 03/11 2215 DC 03/12 Acetaminophen PO 0000 Hydrocodone Bitart/ 0 .STK-MED ONE 03/11 2200 DC Acetaminophen PO 03/11 2201 Insulin Aspart 0 TIDAC 03/12 0800 03/12 SC 1657 Metronidazole 500 MG IQ8 03/12 1600 AC 03/12 N/A 1 UNIT IV 1717 Potassium Chloride 40 MEQ ONCE ONE 03/11 2315 DC 03/12 PO 03/11 2316 0143 Simethicone 80 MG Q6P PRN 03/12 0915 03/12 PO 0931 Vancomycin HCl 1,000 MG 2200 03/12 2200 DC Sodium Chloride 250 ML IV Vancomycin HCl 1,000 MG BID 03/12 2100 DC Sodium Chloride 250 ML IV Vancomycin HCl 1,000 MG Q12H 03/12 1200 AC 03/12 Sodium Chloride 250 ML IV 1414 Vancomycin HCl 1,000 MG DAILY 03/12 0900 DC Sodium Chloride 250 ML IV Vancomycin HCl 1,000 MG ONCE ONE 03/11 2130 DC 03/11 Sodium Chloride 250 ML IV 03/11 2229 2140 Last 24 Hrs of Lab/Willie Results Last 24 Hrs of Labs/Mics: Laboratory Tests 03/12/18 0938: Vancomycin Trough 13.2 03/12/18 0719: Anion Gap 10, Estimated GFR > 60, BUN/Creatinine Ratio 16.0, Troponin I 0.02, CBC w Diff MAN DIFF ORDERED, RBC 3.76 L, MCV 56.5 L, MCH 18.1 L, MCHC 32.1 L , RDW 17.4 H, MPV 8.1, Gran % 81.4 H, Lymphocytes % 12.3 L, Monocytes % 5.6, Eosinophils % 0.6, Basophils % 0.1, Absolute Granulocytes 9.8 H, Absolute Lymphocytes 1.5, Absolute Monocytes 0.7 H, Absolute Eosinophils 0.1, Absolute Basophils 0, Platelet Estimate ADEQUATE, Polychromasia 1+, Hypochromic- Microcytic 2+, Poikilocytosis 2+, Anisocytosis 2+, Microcytic Cells 3+, Ovalocytes 1+, Random Vancomycin 14.7 03/11/18 1932: Troponin I 0.04 03/11/181814: Urine Color YEL, Urine Clarity HAZY H, Urine pH 6.0, Ur Specific [place] 1.020, Urine Protein TRACE H, Urine Ketones NEG, Urine Nitrite NEG, Urine Bilirubin NEG, Urine Urobilinogen 0.2, Ur Leukocyte Esterase SMALL H, Ur Microscopic SEDIMENT EXAMINED, Urine RBC 10-15 H, Urine WBC 10-15 H, Ur Epithelial Cells FEW, Urine Bacteria MOD H, Urine Hemoglobin LARGE H, Urine Glucose 100 H Microbiology 03/11 2153 BLOOD: Blood Culture - CAN Cancelled: Cancelled via OE: Per MD Decision 03/11 1815 URINE ROUT: Urine Culture - RES GRAM NEGATIVE RODS Assessment/Plan Assessment: 72-year-old gentleman with a significant past medical history including paraplegia due to spinal cord injury in , CAD status post CABG and stents, type 2 diabetes, hypertension, BPH, urethral strictures, multiple recurrent UTI on chronic Cipro therapy, peripheral vascular disease status post bilateral stents, chronic ischial wound with osteomyelitis status post multiple skin grafts with unsuccessful closure, colostomy placement, significant urinary retention requiring straight cath daily, presented to [facility] with history of fever, and chills. In the setting of persistent fevers and significant sacral wound discharge patient was placed on IV vancomycin currently on twice a day dosing with a PICC line placed on February 17 at [facility]. Patient follows up with Dr. Street at [facility] for wound care. A presentation patient was febrile with a MAXIMUM TEMPERATURE of 102.4, and a maximal heart rate in 120s. His examination was remarkable for a significant sacral wound on the right side which covered the perineum and scrotum, area was erythematous but without any obvious fluctuation or purulent discharge. Ostomy bag in the right PICC line was also inspected which did not have any obvious signs of exit site infection. Laboratory workup was remarkable for leukocytosis with a white count of 16 and bands of 3%, his ESR and CRP was elevated, and also had a lactic acidosis of 3.1. CT of pelvis was suggestive of a small abscess just inferior to the right symphysis pubis and an adjacent abscess around the right corporal cavernosum and possible soft tissue gas tracking mostly seen in the inferior posterior perineal soft tissue areas. Impression * Sepsis as evident by leukocytosis, tachycardia, fevers and elevated lactic acid. Possible source is decubitus ulcer vs PICC line vs urine. * Acute on chronic anemia most likely secondary to acute blood loss History of chronic disease; recurrent UTI with chronic bacteriuria, CAD, PVD, type 2 diabetes, hypertension, paraplegia. * Active PICC line Plan * We'll transfuse 1 units given the acute drop of hemoglobin as patient has a history of CAD with a target of 8mg/dl as a goal. * Even though the patient has persistent fevers and chills despite being on vancomycin, gram negative coverage was appropriately added to address possible pseudomonas and other gram negative rods. Ceftaz provides an excellent coverage for Pseudomonas and other gram-negative pathogen however it is devoid of anaerobe coverage, we willl most likely need to switch ceftaz to cefepime or Pip /tazobactam to provide anaerobes and Pseudomonas coverage. * Will also need to assess possible subtherapeutic vancomycin levels, the random level is 14.7. will await trough levels and consider increasing vancomycin to 1g twice a day to to attain a therapeutic goal of 15-20. * PICC line sepsis needs to be excluded via blood culture at the site, and if patient is bacteremic with gram positve pathogen, will need to remove it. Currently not able to obtain culture from the PICC line. If the line continues to malfunction, we will need to replace it. * Will contact ID to help for help in the management. * f/u cultures * Plastic surgery consult placed for tomorrow morning to assess for the feasibility of skin graft (Alex Bell MD) Problem List: 1. Anemia 2. Pressure ulcer of sacral region, stage 4 Pain Ratin Pain Location: none Pain Goal: Remain pain free Pain Plan: per pathway Tomorrow's Labs & Rationales: cbc Papa Wilson 03/12/18 1110: Attending MD Review Statement Attending Statement Attending MD Statement: examined this patient, discuss w/resident/PA/VECTOR CONTROL ASSISTANT, agreed w/resident/PA/VECTOR CONTROL ASSISTANT, discussed with family, reviewed EMR data (avail), discussed with nursing, discussed with case mgmt, reviewed images, amended to note Attending Assessment/Plan: Patient with above mentoined medical history comes with sepsis and acute on chronic osteomyelitis of right sacral decubiti ulcer rule out PICC line sepsis. Also differential includes recurrent UTI. Patient is started on broad spectrum antibitoic coverage, IVF, trending lactic acid levels. ID consult appreciated. Obtain plastic surgery consult. Transfuse 1 unit fo prbc for acute on chronic anemia 2/2 acute blood loss. Continue pain management and daibetes management. Hold bp meds for now and resume when able. Obtain previous records from [facility].
--- NOTE | 2018-03-12 09:45 | Cons- Infect Disease ---
General Information and HPI Consulting Request Date of Consult: 03/12/18 Requested By: Ovi SAMPSON,Raina Reason for Consult: Rule out sepsis Source of Information: patient, old records History of Present Illness: This is a 72-year-old man with hypertension, diabetes, coronary artery disease, status post stent, thalassemia minor, paraplegic from a fall over 30 years prior to admission, with Henderson rods in his spine, status post colostomy and self- catheterization, with a history of urethral strictures, multiple urethrotomies and stent placements for hydronephrosis, maintained on Ciprofloxacin prophylaxis for the past 2 years per Urology, with a chronic, nonhealing right ischial wound for many years, treated in the past for osteomyelitis, with multiple skin grafts but with closure not successful, followed at the [facility], where a recent bone biopsy (obtained at the bedside) was found to be positive for MRSA, begun on Vancomycin via a PICC 3 weeks prior to admission, with the dose apparently increased from 1 g to 2 g a day 2 weeks prior to admission, admitted on March 11 after presenting to the emergency room with subjective fevers and chills over the past several months and with intermittent chest discomfort and shortness of breath. On admission he was febrile to 102.4 and tachycardic to 124, with an O2 sat of 95% on room air. Laboratory data revealed a white blood cell count of 16,000, BUN/creatinine 15 and 0.5, alkaline phosphatase 127, proBNP 834, INR 1.63. Urinalysis 10-15 RBC/10-15 WBCs. Chest x-ray was negative. CTA of the chest was negative for pulmonary embolism or pneumonia. CT of the abdomen and pelvis revealed a right sacral decubitus extending to the right inferior pubic ramus, with evidence of chronic osteomyelitis and with extension of the ulcer to the right penile base with fat stranding in the perineal soft tissue, with a small abscess inferior to the right symphysis pubis and with an adjacent abscess within the right poor cavernosum, with a few additional foci of soft tissue gas tracking more inferiorly. He was continued on his Vancomycin, though at a reduced dose of 1 g a day, and begun on Ceftazidime. He has defervesced overnight and offers no new complaints this morning. Allergies/Medications Allergies: Coded Allergies: erythromycin base (RASH 02/17/18) Home Med List: Acetaminophen (Tylenol Extra Strength) 500 MG TABLET 2 TAB PO TID PAIN ( Reported) Amlodipine Besylate 5 MG TABLET 1 TAB PO DAILY HTN (Reported) Ascorbic Acid (Vitamin C) 500 MG CAPSULE.ER 1 CAP PO DAILY SUPPLEMENT ( Reported) Aspirin (Children's Aspirin) 81 MG TAB.CHEW 81 TAB PO DAILY HEART HEALTH ( Reported) Atenolol 25 MG TABLET 1 TAB PO DAILY HTN (Reported) Atorvastatin Calcium 20 MG TABLET 1 TAB PO DAILY HLD (Reported) Cholecalciferol (Vitamin D3) (Vitamin D) 1,000 UNIT TABLET 1 TAB PO DAILY SUPPLEMENT (Reported) Ciprofloxacin HCl 500 MG TABLET 1 TAB PO ONCE PROHPHYLAXIS (Reported) Ferrous Sulfate 325 MG (65 MG IRON) TABLET 1 TAB PO BID ANEMIA (Reported) Gabapentin 300 MG CAPSULE 2 CAP PO TID UNKNOWN (Reported) Glipizide (Glipizide ER) 5 MG TAB.ER.24 1 TAB PO DAILY DM (Reported) Hydrochlorothiazide 25 MG TABLET 1 TAB PO DAILY PRN PAIN (Reported) Hydrocodone/Acetaminophen (Hydrocodon-Acetaminoph 7.5-325) 7.5 MG-325 MG TABLET 1 TAB PO TIDPRN PRN PAIN (Reported) Metformin HCl 1,000 MG TABLET 1 TAB PO BID DM (Reported) Past History Travel History Traveled to [place] past 21 day No Medical History Blood Transfusion Hx: Yes Neurological: Paraplegia EENT: NONE Cardiovascular: CAD, hypertension, hyperlipidemia Respiratory: NONE Gastrointestinal: NONE Hepatic: NONE Renal: NONE Musculoskeletal: decubitis ulcer Psychiatric: NONE Endocrine: diabetes Blood Disorders: anemia Cancer(s): NONE EQUITY ANALYST/Reproductive: trichomoniasis Other Medical Hx: BPH, Multiple UTIs, Urethral strictures, Urinary retention History of MRSA: No History of VRE: No History of CDIFF: No Isolation History: Standard Surgical History Surgical History: CABG, spinal fusion, colostomy Family History Relations & Conditions If Any: MOTHER FH: breast cancer FH: hypertension FH: lung cancer uncle FH: cancer Psychosocial History Where Do You Live? Home Who Do You Live With? spouse Services at Home: Home Health Aide, Nursing Primary Language: Uzbek Smoking Status: Former Smoker ETOH Use: denies use Illicit Drug Use: denies illicit drug use Functional Ability ADLs Needs Assist: dressing, eating, toileting, bathing. Ambulation: Paraplegic-uses a wheelchair Review of Systems Review of Systems All Other Systems: Reviewed and Negative Exam & Diagnostic Data Last 24 Hrs of Vital Signs/I&O Vital Signs Date Time Temp Pulse Resp B/P B/P Pulse O2 O2 Flow FiO2 Mean Ox Delivery Rate 03/12 0847 95 140/62 03/12 0612 97.9 95 20 140/62 96 03/11 2330 98.0 88 20 122/62 98 Room Air 03/11 2330 98.0 20 122/62 96 Room Air 03/11 2149 98.3 90 18 132/58 97 Room Air 03/11 1928 98.5 92 20 132/60 98 Room Air 03/11 1626 96 Room Air 03/11 1625 100.0 108 22 135/60 96 Room Air 03/11 1431 102.4 124 22 168/70 95 Room Air Intake & Output 03/12 1600 03/12 0800 03/12 0000 Intake Total Output Total 700 450 Balance -700 -450 Output, Urine 700 450 Patient 140 lb 139 lb Weight Weight Bed scale Bed scale Measurement Method Physical Exam Other Physical Findings: He is awake and alert in no acute distress. T-max 102.4. Skin reveals no rash. HEENT exam is negative. Neck is supple with no adenopathy. Lungs are clear. Heart regular rhythm with no murmur. Abdomen is soft, nontender with positive bowel sounds; colostomy in place. Back no CVA tenderness; right ischial decubitus clean, with no surrounding erythema or drainage. Extremities no cyanosis, clubbing or edema; PICC in the right upper extremity with no inflammation at the site and with no right upper extremity edema. Neuro paraplegia. Last 24 Hours of Lab Results: Laboratory Tests 03/12 03/11 07 1932 Chemistry Sodium (137 - 145 mmol/L) 142 Potassium (3.5 - 5.1 mmol/L) 3.4 L Chloride (98 - 107 mmol/L) 105 Carbon Dioxide (22 - 30 mmol/L) 27 Anion Gap (5 - 16) 10 BUN (9 - 20 mg/dL) 8 L Creatinine (0.7 - 1.2 mg/dL) 0.5 L Estimated GFR (>60 ml/min) > 60 BUN/Creatinine Ratio (7 - 25 %) 16.0 Troponin I (<0.11 ng/ml) 0.02 0.04 Hematology CBC w Diff MAN DIFF ORDERED WBC (4.8 - 10.8 /CUMM) 12.0 H RBC (4.70 - 6.10 /CUMM) 3.76 L Hgb (14.0 - 18.0 G/DL) 6.8 *L Hct (42 - 52 %) 21.3 L MCV (80.0 - 94.0 FL) 56.5 L MCH (27.0 - 31.0 PG) 18.1 L MCHC (33.0 - 37.0 G/DL) 32.1 L RDW (11.5 - 14.5 %) 17.4 H Plt Count (130 - 400 /CUMM) 345 MPV (7.4 - 10.4 FL) 8.1 Gran % (42.2 - 75.2 %) 81.4 H Lymphocytes % (20.5 - 51.1 %) 12.3 L Monocytes % (1.7 - 9.3 %) 5.6 Eosinophils % (0 - 5 %) 0.6 Basophils % (0.0 - 2.0 %) 0.1 Absolute Granulocytes (1.4 - 6.5 /CUMM) 9.8 H Absolute Lymphocytes (1.2 - 3.4 /CUMM) 1.5 Absolute Monocytes (0.10 - 0.60 /CUMM) 0.7 H Absolute Eosinophils (0.0 - 0.7 /CUMM) 0.1 Absolute Basophils (0.0 - 0.2 /CUMM) 0 Platelet Estimate (ADEQUATE) ADEQUATE Polychromasia 1+ Hypochromic-Microcytic 2+ Poikilocytosis 2+ Anisocytosis 2+ Microcytic Cells 3+ Ovalocytes 1+ Toxicology Random Vancomycin (ug/ml) 14.7 /16 /16 03/11 1815 1800 1505 Chemistry Lactic Acid (0.7 - 2.1 mmol/L) 0.9 Hematology ESR [place] (0 - 10 MM) 92 H Urines Urine Color (YEL,AMB,STR) YEL Urine Clarity (CLEAR) HAZY H Urine pH (5.0 - 8.0) 6.0 Ur Specific [place] (1.001 - 1.035) 1.020 Urine Protein (NEG,<30 MG/DL) TRACE H Urine Ketones (NEG) NEG Urine Nitrite (NEG) NEG Urine Bilirubin (NEG) NEG Urine Urobilinogen (0.1 - 1.0 EU/dl) 0.2 Ur Leukocyte Esterase (NEG) SMALL H Ur Microscopic SEDIMENT EXAMINED Urine RBC (0 - 5 /HPF) 10-15 H Urine WBC (0 - 2 /HPF) 10-15 H Ur Epithelial Cells (NONE,FEW) FEW Urine Bacteria (NEG/NONE) MOD H Urine Hemoglobin (NEG) LARGE H Urine Glucose (N MG/DL) 100 H 16 03/11 1505 1438 Chemistry Sodium (137 - 145 mmol/L) 136 L Potassium (3.5 - 5.1 mmol/L) 3.3 L Chloride (98 - 107 mmol/L) 97 L Carbon Dioxide (22 - 30 mmol/L) 26 Anion Gap (5 - 16) 14 BUN (9 - 20 mg/dL) 15 Creatinine (0.7 - 1.2 mg/dL) 0.5 L Estimated GFR (>60 ml/min) > 60 BUN/Creatinine Ratio (7 - 25 %) 30.0 H Glucose (65 - 99 mg/dL) 109 H Lactic Acid (0.7 - 2.1 mmol/L) 3.1 H Calcium (8.4 - 10.2 mg/dL) 8.1 L Total Bilirubin (0.2 - 1.3 mg/dL) 0.3 AST (17 - 59 U/L) 25 ALT (21 - 72 U/L) 20 L Alkaline Phosphatase (< 127 U/L) 127 H Troponin I (<0.11 ng/ml) 0.03 C-Reactive Prot, Quant (<1.0 mg/dL) > 9.0 H Cancelled [id number] Pept (<125 pg/mL) 834 H Total Protein (6.3 - 8.2 g/dL) 5.9 L Albumin (3.5 - 5.0 g/dL) 2.9 L Globulin (1.9 - 4.2 gm/dL) 3.0 Albumin/Globulin Ratio (1.1 - 2.2 %) 1.0 L Coagulation PT (9.4 - 12.5 SEC) 17.8 H INR (0.90 - 1.17) 1.63 H APTT (25 - 37 SEC) 31 D-Dimer High Sensitivty (0 - 243 ng/ml) 496 H Hematology CBC w Diff MAN DIFF ORDERED WBC (4.8 - 10.8 /CUMM) 16.0 H RBC (4.70 - 6.10 /CUMM) 4.32 L Hgb (14.0 - 18.0 G/DL) 7.9 L Hct (42 - 52 %) 24.6 L MCV (80.0 - 94.0 FL) 57.0 L MCH (27.0 - 31.0 PG) 18.2 L MCHC (33.0 - 37.0 G/DL) 31.9 L RDW (11.5 - 14.5 %) 16.9 H Plt Count (130 - 400 /CUMM) 351 MPV (7.4 - 10.4 FL) 7.9 Gran % (42.2 - 75.2 %) 91.5 H Lymphocytes % (20.5 - 51.1 %) 4.9 L Monocytes % (1.7 - 9.3 %) 3.5 Eosinophils % (0 - 5 %) 0.1 Basophils % (0.0 - 2.0 %) 0 Absolute Granulocytes (1.4 - 6.5 /CUMM) 14.6 H Segmented Neutrophils (42.2 - 75.2 %) 93 H Band Neutrophils (0.0 - 5.0 %) 3 Absolute Lymphocytes (1.2 - 3.4 /CUMM) 0.8 L Lymphocytes (20.5 - 51.1 %) 2 L Monocytes (1.7 - 9.3 %) 2 Absolute Monocytes (0.10 - 0.60 /CUMM) 0.6 Absolute Eosinophils (0.0 - 0.7 /CUMM) 0 Absolute Basophils (0.0 - 0.2 /CUMM) 0 Platelet Estimate (ADEQUATE) ADEQUATE Hypochromic-Microcytic 3+ Poikilocytosis 1+ Anisocytosis 2+ Microcytic Cells 2+ Ovalocytes 1+ Last 24 Hours of Willie Results: Blood cultures March 11 negative Urine culture March 11 greater than 100,000 colonies of gram-negative rods Diagnostic Data Recent Imaging Findings: Chest x-ray was negative. CTA of the chest was negative for pulmonary embolism or pneumonia. CT of the abdomen and pelvis revealed a right sacral decubitus extending to the right inferior pubic ramus, with evidence of chronic osteomyelitis and with extension of the ulcer to the right penile base with fat stranding in the perineal soft tissue, with a small abscess inferior to the right symphysis pubis and with an adjacent abscess within the right poor cavernosum, with a few additional foci of soft tissue gas tracking more inferiorly. Assessment/Plan Assessment/Plan Impression: This is a 72-year-old man, paraplegic from a fall over 30 years prior to admission, status post colostomy and self-catheterization, with a history of urethral strictures, status post multiple urethrotomies and stent placements for hydronephrosis, maintained on Ciprofloxacin prophylaxis for the past 2 years, with a chronic, nonhealing right ischial wound for many years, begun on Vancomycin 3 weeks prior to admission for MRSA osteomyelitis, admitted on March 11 with subjective fevers and chills over the past several months and with intermittent chest discomfort and shortness of breath, found to be febrile with a leukocytosis, mild pyuria and with a CT of the abdomen and pelvis revealing chronic osteomyelitis, with extension of the ulcer and inflammation to the perineum. His fever may be secondary to the extension of his decubitus to the perineum, with evidence on the CT scan of soft tissue gas, which may be secondary to the open wound, and small abscesses and suspect that he may require drainage/ debridement for this in addition to antibiotics. He does have a positive urine culture and, given his pyuria, this could also be the source of his fever. His respiratory complaints are of unclear etiology with a negative CT of the chest and he appears to be oxygenating well. His PICC is another potential source of infection, but his blood cultures are so far negative. Unfortunately it does not appear to be functioning and this will need to be addressed. Suggestion: 1. Plastic surgery and Urology evaluations regarding his decubitus and possible need for drainage/debridement 2. Follow-up final cultures 3. Evaluate placement of PICC and need for possible replacement 4. Vancomycin trough level this morning 5. Begin Flagyl 500 mg IV every 8 hours 6. Increase Vancomycin to 1 g IV every 12 hours pending above 7. Continue Ceftazidime Consult Acknowledgment - Thank you for your consult request.
--- NOTE | 2018-03-12 12:09 | Cons- Urology ---
General Information and HPI Consulting Request Date of Consult: 03/12/18 Requested By: Ovi SAMPSON,Raina Reason for Consult: abscess-perineal Source of Information: patient, family, old records Exam Limitations: no limitations History of Present Illness: PT WELL KNOWN TO ME FOR YEARS: HAS BPH WITH NEUROGENIC BLADDER REQUIRING DAILY SELF-CATH AND SUPPRESSION ABX WELL MAINTAINED AND PREVENTED FROM FREQUENT ER/ HOSPITAL VISITS FOR REASONS; FEELING BETTER TODAY, HAD PRESENTED WITH ONE WEEK OF CHILLS/RIGORS DESPITE CLEAR URINE. WORK RELATED INJURY RESULTED IN PARAPLEGIA. Patient is a 72-year-old male with a PMH significant for paraplegia, chronic right sacral decubitus ulcer, osteomyelitis, recurrent UTIs, diabetes mellitus type 2, CAD status post CABG and stent placement in [address] 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 Patient's symptoms began approximately 1-1/2 months ago with intermittent fevers , drenching sweats, and shaking chills. Patient also noted worsening of his chronic sacral decubitus ulcer for which she follows at [facility] wound care with Dr. Pompa, who recently started the patient on IV vancomycin and had a PICC line placed. Patient also underwent a minor debridement by Dr. Pompa. Within the last week patient's vancomycin dose was doubled from 1 g daily to 1 g twice daily based on low vancomycin levels. Over the past week prior to presentation patient also noted intermittent shortness of breath and a substernal, nonradiating, chest pressure like pain. Since the onset of his symptoms patient has had poor appetite although has been staying hydrated. Patient notes that his urine has been non-cloudy and not foul-smelling. Patient had been taking iron supplementation for his chronic anemia however he ran out of iron supplements and was recently restarted when he to have low H/H, he has not recently received a transfusion. Of note patient reports having similar symptoms several years ago and had an extensive workup which yielded no definitive infectious results and he was deemed to have fevers of unknown origin. Since starting vancomycin patient has noted looser consistency of his ostomy output but no dark or bloody stool. patient denies any lightheadedness, syncope, nausea, vomiting. Allergies/Medications Allergies: Coded Allergies: erythromycin base (RASH 02/17/18) Home Med List: Acetaminophen (Tylenol Extra Strength) 500 MG TABLET 2 TAB PO TID PAIN ( Reported) Amlodipine Besylate 5 MG TABLET 1 TAB PO DAILY HTN (Reported) Ascorbic Acid (Vitamin C) 500 MG CAPSULE.ER 1 CAP PO DAILY SUPPLEMENT ( Reported) Aspirin (Children's Aspirin) 81 MG TAB.CHEW 81 TAB PO DAILY HEART HEALTH ( Reported) Atenolol 25 MG TABLET 1 TAB PO DAILY HTN (Reported) Atorvastatin Calcium 20 MG TABLET 1 TAB PO DAILY HLD (Reported) Cholecalciferol (Vitamin D3) (Vitamin D) 1,000 UNIT TABLET 1 TAB PO DAILY SUPPLEMENT (Reported) Ciprofloxacin HCl 500 MG TABLET 1 TAB PO ONCE PROHPHYLAXIS (Reported) Ferrous Sulfate 325 MG (65 MG IRON) TABLET 1 TAB PO BID ANEMIA (Reported) Gabapentin 300 MG CAPSULE 2 CAP PO TID UNKNOWN (Reported) Glipizide (Glipizide ER) 5 MG TAB.ER.24 1 TAB PO DAILY DM (Reported) Hydrochlorothiazide 25 MG TABLET 1 TAB PO DAILY PRN PAIN (Reported) Hydrocodone/Acetaminophen (Hydrocodon-Acetaminoph 7.5-325) 7.5 MG-325 MG TABLET 1 TAB PO TIDPRN PRN PAIN (Reported) Metformin HCl 1,000 MG TABLET 1 TAB PO BID DM (Reported) Current Medications: Current Medications Sig/Santhosh Start time Last Medication Dose Route Stop Time Status Admin Aspirin 6,561 MG DAILY 03/12 0900 CAN PO Aspirin 81 MG DAILY 03/12 0900 AC 03/12 PO 0847 Atenolol 25 MG DAILY 03/12 0900 AC 03/12 PO 0847 Atorvastatin Calcium 20 MG 1700 03/12 1700 AC PO Ceftazidime 1,000 MG Q8H 03/12 06 AC 03/12 IV 0727 Ceftazidime 0 .STK-MED ONE 03/11 1656 DC .ROUTE Ceftazidime 1,000 MG ONCE ONE 03/11 1645 DC 03/11 IV 03/11 1646 1726 Ferrous Sulfate 325 MG BID 03/12 0900 AC 03/12 PO 0847 Gabapentin 600 MG TID 03/12 0903 AC 03/12 PO 0930 Heparin Sodium 5,000 UNIT Q8 03/12 0600 AC 03/12 (Porcine) SC 0556 Hydrocodone Bitart/ 15 ML Q6P PRN 03/11 2215 AC 03/12 Acetaminophen PO 0000 Hydrocodone Bitart/ 0 .STK-MED ONE 03/11 2200 DC Acetaminophen PO 03/11 2201 Hydrocodone Bitart/ 1 TAB ONCE ONE 03/11 1615 DC 03/11 Acetaminophen PO 03/11 1616 1617 Hydrocodone Bitart/ 0 .STK-MED ONE 03/11 1615 DC Acetaminophen PO Insulin Aspart 0 TIDAC 03/12 0800 AC SC Ketorolac 0 .STK-MED ONE 03/11 1527 DC Tromethamine .ROUTE Ketorolac 15 MG ONCE ONE 03/11 1445 DC 03/11 Tromethamine IV 03/11 1446 1532 Metronidazole 500 MG IQ8 03/12 1600 AC N/A 1 UNIT IV Potassium Chloride 40 MEQ ONCE ONE 03/11 2315 DC 03/12 PO 03/11 2316 0143 Simethicone 80 MG Q6P PRN 03/12 0915 AC 03/12 PO 0931 Sodium Chloride 1,000 ML BOLUS ONE 03/11 1600 DC 03/11 IV 03/11 1659 2013 Sodium Chloride 1,000 ML BOLUS ONE 03/11 1445 DC 03/11 IV 03/11 1544 1510 Sodium Chloride 1,000 ML BOLUS ONE 03/11 1445 DC 03/11 IV 03/11 1544 1609 Vancomycin HCl 1,000 MG 2200 03/12 2200 DC Sodium Chloride 250 ML IV Vancomycin HCl 1,000 MG BID 03/12 2100 DC Sodium Chloride 250 ML IV Vancomycin HCl 1,000 MG Q12H 03/12 1200 AC Sodium Chloride 250 ML IV Vancomycin HCl 1,000 MG DAILY 03/12 0900 DC Sodium Chloride 250 ML IV Vancomycin HCl 1,000 MG ONCE ONE 03/11 2130 DC 03/11 Sodium Chloride 250 ML IV 03/11 2229 2140 Past History Medical History Blood Transfusion Hx: Yes Neurological: Paraplegia EENT: NONE Cardiovascular: CAD, hypertension, hyperlipidemia Respiratory: NONE Gastrointestinal: NONE Hepatic: NONE Renal: NONE Musculoskeletal: decubitis ulcer Psychiatric: NONE Endocrine: diabetes Blood Disorders: anemia Cancer(s): NONE POLE MAKER/Reproductive: trichomoniasis Other Medical Hx: BPH, Multiple UTIs, Urethral strictures, Urinary retention Surgical History Pertinent Surgical History: CABG, spinal fusion, colostomy Family History Relations & Conditions If Any: MOTHER FH: breast cancer FH: hypertension FH: lung cancer uncle FH: cancer Psychosocial History Where Do You Live? Home Who Do You Live With? spouse Services at Home: Home Health Aide, Nursing Primary Language: Welsh Smoking Status: Former Smoker ETOH Use: denies use Illicit Drug Use: denies illicit drug use Functional Ability ADLs Needs Assist: dressing, eating, toileting, bathing. Ambulation: Paraplegic-uses a wheelchair Employment History Employment: Disability Retired? yes Review of Systems Review of Systems Constitutional: Reports: chills, diaphoresis, fever. EENTM: Denies: no symptoms. Cardiovascular: Denies: no symptoms. Respiratory: Denies: no symptoms. GI: Denies: no symptoms. Genitourinary: Reports: see HPI. Denies: no symptoms. Musculoskeletal: Reports: see HPI. Neurological/Psychological: Denies: no symptoms. Exam & Diagnostic Data Vital Signs and I&O Vital Signs Date Time Temp Pulse Resp B/P B/P Pulse O2 O2 Flow FiO2 Mean Ox Delivery Rate 03/12 0847 95 140/62 03/12 0612 97.9 95 20 140/62 96 03/11 2330 98.0 88 20 122/62 98 Room Air 03/11 2330 98.0 20 122/62 96 Room Air 03/11 2149 98.3 90 18 132/58 97 Room Air 03/11 1928 98.5 92 20 132/60 98 Room Air 03/11 1626 96 Room Air 03/11 1625 100.0 108 22 135/60 96 Room Air 03/11 1431 102.4 124 22 168/70 95 Room Air Intake & Output 03/12 1600 03/12 0800 03/12 0000 03/11 1600 03/11 0800 03/11 0000 Intake Total 0 Output Total 700 450 0 Balance -700 -450 0 Intake, Oral 0 Output, Urine 700 450 0 Patient 140 lb 139 lb 150 lb Weight Weight Bed scale Bed scale Reported by Patient Measurement Method Physical Exam General Appearance: well developed/nourished, no apparent distress, alert, awake , comfortable Head: atraumatic Eyes: Bilateral: normal appearance. Neck: normal inspection Respiratory: normal breath sounds Cardiovascular: regular rate/rhythm Gastrointestinal: normal bowel sounds, soft, non-tender Back: no vertebral tenderness Extremities: normal inspection Neurologic/Psych: no motor/sensory deficits, awake, alert, oriented x 3 Skin: SACRAL/BUTTOCK DECUBITUS Reproductive: Normal male genitalia (NO PALPABLE AREA OF ABSCESS) Last 24 Hours of Labs: Laboratory Tests 03/12 03/12 03/11 0927 6152 1932 Chemistry Sodium (137 - 145 mmol/L) 142 Potassium (3.5 - 5.1 mmol/L) 3.4 L Chloride (98 - 107 mmol/L) 105 Carbon Dioxide (22 - 30 mmol/L) 27 Anion Gap (5 - 16) 10 BUN (9 - 20 mg/dL) 8 L Creatinine (0.7 - 1.2 mg/dL) 0.5 L Estimated GFR (>60 ml/min) > 60 BUN/Creatinine Ratio (7 - 25 %) 16.0 Troponin I (<0.11 ng/ml) 0.02 0.04 Hematology CBC w Diff MAN DIFF ORDERED WBC (4.8 - 10.8 /CUMM) 12.0 H RBC (4.70 - 6.10 /CUMM) 3.76 L Hgb (14.0 - 18.0 G/DL) 6.8 *L Hct (42 - 52 %) 21.3 L MCV (80.0 - 94.0 FL) 56.5 L MCH (27.0 - 31.0 PG) 18.1 L MCHC (33.0 - 37.0 G/DL) 32.1 L RDW (11.5 - 14.5 %) 17.4 H Plt Count (130 - 400 /CUMM) 345 MPV (7.4 - 10.4 FL) 8.1 Gran % (42.2 - 75.2 %) 81.4 H Lymphocytes % (20.5 - 51.1 %) 12.3 L Monocytes % (1.7 - 9.3 %) 5.6 Eosinophils % (0 - 5 %) 0.6 Basophils % (0.0 - 2.0 %) 0.1 Absolute Granulocytes (1.4 - 6.5 /CUMM) 9.8 H Absolute Lymphocytes (1.2 - 3.4 /CUMM) 1.5 Absolute Monocytes (0.10 - 0.60 /CUMM) 0.7 H Absolute Eosinophils (0.0 - 0.7 /CUMM) 0.1 Absolute Basophils (0.0 - 0.2 /CUMM) 0 Platelet Estimate (ADEQUATE) ADEQUATE Polychromasia 1+ Hypochromic-Microcytic 2+ Poikilocytosis 2+ Anisocytosis 2+ Microcytic Cells 3+ Ovalocytes 1+ Toxicology Vancomycin Trough (10.0 - 20.0 ug/mL) 13.2 Random Vancomycin (ug/ml) 14.7 03/11 03/11 03/11 1815 1800 1505 Chemistry Lactic Acid (0.7 - 2.1 mmol/L) 0.9 Hematology ESR Westergren (0 - 10 MM) 92 H Urines Urine Color (YEL,AMB,STR) YEL Urine Clarity (CLEAR) HAZY H Urine pH (5.0 - 8.0) 6.0 Ur Specific Simms (1.001 - 1.035) 1.020 Urine Protein (NEG,<30 MG/DL) TRACE H Urine Ketones (NEG) NEG Urine Nitrite (NEG) NEG Urine Bilirubin (NEG) NEG Urine Urobilinogen (0.1 - 1.0 EU/dl) 0.2 Ur Leukocyte Esterase (NEG) SMALL H Ur Microscopic SEDIMENT EXAMINED Urine RBC (0 - 5 /HPF) 10-15 H Urine WBC (0 - 2 /HPF) 10-15 H Ur Epithelial Cells (NONE,FEW) FEW Urine Bacteria (NEG/NONE) MOD H Urine Hemoglobin (NEG) LARGE H Urine Glucose (N MG/DL) 100 H 03/11 03/11 1505 1438 Chemistry Sodium (137 - 145 mmol/L) 136 L Potassium (3.5 - 5.1 mmol/L) 3.3 L Chloride (98 - 107 mmol/L) 97 L Carbon Dioxide (22 - 30 mmol/L) 26 Anion Gap (5 - 16) 14 BUN (9 - 20 mg/dL) 15 Creatinine (0.7 - 1.2 mg/dL) 0.5 L Estimated GFR (>60 ml/min) > 60 BUN/Creatinine Ratio (7 - 25 %) 30.0 H Glucose (65 - 99 mg/dL) 109 H Lactic Acid (0.7 - 2.1 mmol/L) 3.1 H Calcium (8.4 - 10.2 mg/dL) 8.1 L Total Bilirubin (0.2 - 1.3 mg/dL) 0.3 AST (17 - 59 U/L) 25 ALT (21 - 72 U/L) 20 L Alkaline Phosphatase (< 127 U/L) 127 H Troponin I (<0.11 ng/ml) 0.03 C-Reactive Prot, Quant (<1.0 mg/dL) > 9.0 H Cancelled War-U-Rruttfdcbhc Pept (<125 pg/mL) 834 H Total Protein (6.3 - 8.2 g/dL) 5.9 L Albumin (3.5 - 5.0 g/dL) 2.9 L Globulin (1.9 - 4.2 gm/dL) 3.0 Albumin/Globulin Ratio (1.1 - 2.2 %) 1.0 L Coagulation PT (9.4 - 12.5 SEC) 17.8 H INR (0.90 - 1.17) 1.63 H APTT (25 - 37 SEC) 31 D-Dimer High Sensitivty (0 - 243 ng/ml) 496 H Hematology CBC w Diff MAN DIFF ORDERED WBC (4.8 - 10.8 /CUMM) 16.0 H RBC (4.70 - 6.10 /CUMM) 4.32 L Hgb (14.0 - 18.0 G/DL) 7.9 L Hct (42 - 52 %) 24.6 L MCV (80.0 - 94.0 FL) 57.0 L MCH (27.0 - 31.0 PG) 18.2 L MCHC (33.0 - 37.0 G/DL) 31.9 L RDW (11.5 - 14.5 %) 16.9 H Plt Count (130 - 400 /CUMM) 351 MPV (7.4 - 10.4 FL) 7.9 Gran % (42.2 - 75.2 %) 91.5 H Lymphocytes % (20.5 - 51.1 %) 4.9 L Monocytes % (1.7 - 9.3 %) 3.5 Eosinophils % (0 - 5 %) 0.1 Basophils % (0.0 - 2.0 %) 0 Absolute Granulocytes (1.4 - 6.5 /CUMM) 14.6 H Segmented Neutrophils (42.2 - 75.2 %) 93 H Band Neutrophils (0.0 - 5.0 %) 3 Absolute Lymphocytes (1.2 - 3.4 /CUMM) 0.8 L Lymphocytes (20.5 - 51.1 %) 2 L Monocytes (1.7 - 9.3 %) 2 Absolute Monocytes (0.10 - 0.60 /CUMM) 0.6 Absolute Eosinophils (0.0 - 0.7 /CUMM) 0 Absolute Basophils (0.0 - 0.2 /CUMM) 0 Platelet Estimate (ADEQUATE) ADEQUATE Hypochromic-Microcytic 3+ Poikilocytosis 1+ Anisocytosis 2+ Microcytic Cells 2+ Ovalocytes 1+ Imaging Results: PATIENT: GRISEL DORSEY PRESENT AGE: 72 PATIENT ACCOUNT NO: [id number] : 45 LOCATION: [facility] ORDERING PHYSICIAN: Earnest BARRIOS SERVICE DATE: 03/11/18 EXAM TYPE: CAT - CT PELVIS WO IV CONTRAST EXAMINATION: CT PELVIS WITHOUT CONTRAST CLINICAL INFORMATION: Abscess. COMPARISON: CT abdomen and pelvis from earlier today. TECHNIQUE: Helical scanning was performed with submillimeter collimation through the pelvis. Sagittal and coronal multiplanar 2-D reconstructions were obtained. DLP: 257 mGy-cm FINDINGS: PELVIS: A large right sacral decubitus ulcer is again noted which extends to the base of the right penis in the inferior aspect of the right symphysis pubis where there is what may be a small abscess measuring approximately 1.3 x 1.3 cm on axial image 42 of series 2. There is asymmetric hypoattenuation and soft tissue gas in the right corpora cavernosum near at the base of the penis adjacent to the collection inferior to the right symphysis pubis. There is stranding and thickening of the proximal right abductor muscles. There are a few separate foci of soft tissue gas tracking more inferiorly within the posterior perineal soft tissues. Otherwise unchanged appearance of the visualized pelvis. Extensive atherosclerotic vascular calcification is again noted. IMPRESSION: There appears to be a small abscess just inferior to the right symphysis pubis. There is an adjacent abscess contained within the right corpora cavernosum. There are a few additional foci of soft tissue gas tracking more inferiorly within the posterior perineal soft tissues. Assessment/Plan Assessment/Plan DECUBITUS PROGRESSING TO PUBIS/BASE OF PENIS/TX WITH IV ABX AND WOUND CARE: PT TO SEE DR. SHEPHERD IN AM Copies To: Rickey Claudio MD Consult Acknowledgment - Thank you for your consult request. Attending MD Review Statement Attending Statement Attending MD Statement: examined this patient Attending Assessment/Plan: PT OVERALL IMPROVING WITH IV ABX FROM ADVANCING INFECTED DECUBITUS REACHING PERINEAL/PENILE BASE: RESPONDING TO ABX WELL. TO SEE DR. SHEPHERD IN AM TO DETERMINE COURSE OF ACTION FOR DECUB.
[2018-03-12 14:35] VITALS: BP 140/60
[2018-03-12 22:06] LABS: ABSOLUTE BASOPHIL COUNT 0 /CUMM (0.0-0.2); ABSOLUTE EOSINOPHIL COUNT 0.1 /CUMM (0.0-0.7); ABSOLUTE LYMPH COUNT 1.5 /CUMM (1.2-3.4); ABSOLUTE MONOCYTE COUNT 0.7 /CUMM (0.10-0.60); BASOPHIL % 0 % (0.0-2.0); EOSINOPHIL % 0.6 % (0-5); HEMATOCRIT 23.9 % (42-52); MEAN CORPUSCULAR HGB 19.7 PG (27.0-31.0); MEAN CORPUSCULAR HGB CONC 32.8 G/DL (33.0-37.0); PLATELET COUNT 308 /CUMM (130-400); RBC DISTRIBUTION WIDTH 20.4 % (11.5-14.5); RED BLOOD CELL CT 3.97 /CUMM (4.70-6.10); WHITE BLOOD CELL COUNT 11.3 /CUMM (4.8-10.8)
[2018-03-12 22:18] VITALS: BP 148/58
[2018-03-12 22:24] LABS: MEAN CORPUSCULAR VOLUME 60.2 FL (80.0-94.0)
[2018-03-13 06:01] VITALS: BP 142/66
--- NOTE | 2018-03-13 07:16 | PN- Housestaff ---
Subjective Follow-up For: Sepsis Decubitus ulcer UTI Subjective: Patient seen and examined. Offers no complaints. Review of Systems Constitutional: Reports: no symptoms. Objective Last 24 Hrs of Vital Signs/I&O Vital Signs Date Time Temp Pulse Resp B/P B/P Pulse O2 O2 Flow FiO2 Mean Ox Delivery Rate 03/13 0759 94 142/66 03/13 0601 98.0 94 20 142/66 95 03/12 2218 98.1 95 18 148/58 95 Room Air Intake & Output 03/13 1600 03/13 0800 03/13 0000 Intake Total 1150 120 240 Output Total 950 525 350 Balance 200 -405 -110 Intake, IV 350 Intake, Oral 800 120 240 Output, Urine 950 525 350 Physical Exam General Appearance: Alert, Oriented X3, Cooperative, Mild Distress Skin: large stage IV decubitus ulcer with a clean base Skin Temp/Moisture Exam: Warm/Dry Sepsis Skin Exam (color): Normal for Ethnicity HEENT: Atraumatic Cardiovascular: Normal S1, Normal S2, No Murmurs Lungs: Normal Air Movement Abdomen: Soft, No Tenderness Neurological: Normal Speech Extremities: No Edema Last 24 Hrs of Lab/Willie Results Last 24 Hrs of Labs/Mics: Laboratory Tests 03/13/18 0848: Anion Gap 13, Estimated GFR > 60, BUN/Creatinine Ratio 20.0, CBC w Diff NO MAN DIFF REQ, RBC 4.12 L, MCV 60.2 L, MCH 19.6 L, MCHC 32.5 L, RDW 21.5 H, MPV 8.1, Gran % 82.1 H, Lymphocytes % 12.5 L, Monocytes % 4.5, Eosinophils % 0.7, Basophils % 0.2, Absolute Granulocytes 9.3 H, Absolute Lymphocytes 1.4, Absolute Monocytes 0.5, Absolute Eosinophils 0.1, Absolute Basophils 0 03/12/182: CBC w Diff NO MAN DIFF REQ, RBC 3.97 L, MCV 60.2 L, MCH 19.7 L, MCHC 32.8 L, RDW 20.4 H, MPV 8.0, Gran % 80.0 H, Lymphocytes % 13.5 L, Monocytes % 5.9, Eosinophils % 0.6, Basophils % 0, Absolute Granulocytes 9.0 H, Absolute Lymphocytes 1.5, Absolute Monocytes 0.7 H, Absolute Eosinophils 0.1, Absolute Basophils 0 Microbiology 03/12 7629 BLOOD: Blood Culture - RES Assessment/Plan Assessment: 72-year-old gentleman with a significant past medical history of paraplegia due to spinal cord injury in 1980s, CAD status post CABG and stents, type 2 diabetes , hypertension, BPH, urethral strictures, multiple recurrent UTI on chronic Cipro therapy, peripheral vascular disease status post bilateral stents, chronic ischial wound with osteomyelitis status post multiple skin grafts with unsuccessful closure, colostomy placement, significant urinary retention requiring straight cath daily, presented to [facility] ED with complains of fever and chills. Assessment: 1. Sepsis 2. Elevated Lactic Acid - resolved. 3. Microcytic Anemia 4. PICC line 5. UTI 6. History of Diabetes 7. History of CAD Plan: * Continue IV Vancomycin, Flagyl and Ceftazidime for now. * Urine Culture is growing Pseudomonas. Await final report. * While he does have chronic frankel, the Pseudomonas is unlikely to be a contaminant and likely source of his sepsis. * Follow up blood cultures. * Vanc trough tomorrow. * s/p 1 unit pRBC yesterday with improved H&H today. He has acute on chronic anemia * stool guaics * Lactic acid has trended down to normal. * Await plastic surgery evaluation for his decubitus ulcer. * Wound dressing with Dakins moist gauze twice a day. * Diet: Diabetic * DVT Prophylaxis: SC Heparin * Code: Full Code Problem List: 1. Pressure ulcer of sacral region, stage 4 Pain Ratin Pain Location: none Pain Goal: Remain pain free Pain Plan: none Tomorrow's Labs & Rationales: CBC
[2018-03-13 09:31] LABS: ABSOLUTE BASOPHIL COUNT 0 /CUMM (0.0-0.2); ABSOLUTE EOSINOPHIL COUNT 0.1 /CUMM (0.0-0.7); ABSOLUTE GRANULOCYTE CT 9.3 /CUMM (1.4-6.5); ABSOLUTE LYMPH COUNT 1.4 /CUMM (1.2-3.4); ABSOLUTE MONOCYTE COUNT 0.5 /CUMM (0.10-0.60); BASOPHIL % 0.2 % (0.0-2.0); EOSINOPHIL % 0.7 % (0-5); GRANULOCYTE % 82.1 % (42.2-75.2); HEMATOCRIT 24.8 % (42-52); MEAN CORPUSCULAR HGB 19.6 PG (27.0-31.0); MEAN CORPUSCULAR HGB CONC 32.5 G/DL (33.0-37.0); MEAN CORPUSCULAR VOLUME 60.2 FL (80.0-94.0); MEAN PLATELET VOLUME 8.1 FL (7.4-10.4); PLATELET COUNT 319 /CUMM (130-400); RBC DISTRIBUTION WIDTH 21.5 % (11.5-14.5); RED BLOOD CELL CT 4.12 /CUMM (4.70-6.10); WHITE BLOOD CELL COUNT 11.4 /CUMM (4.8-10.8)
--- NOTE | 2018-03-13 14:43 | PN- Infect Dx ---
Subjective Subjective: Afebrile. He feels much improved with no complaints. His PICC was able to be accessed yesterday. Objective Last 24 Hrs of Vital Signs/I&O Vital Signs Date Time Temp Pulse Resp B/P B/P Pulse O2 O2 Flow FiO2 Mean Ox Delivery Rate 03/13 0759 94 142/66 03/13 0601 98.0 94 20 142/66 95 03/12 2218 98.1 95 18 148/58 95 Room Air 03/12 1435 98.8 91 20 140/60 97 Room Air Intake & Output 03/13 1600 03/13 0800 03/13 0000 Intake Total 1150 120 240 Output Total 950 525 350 Balance 200 -405 -110 Intake, IV 350 Intake, Oral 800 120 240 Output, Urine 950 525 350 Physical Exam Other Physical Findings: He appears comfortable in no acute distress Lungs are clear Heart regular rhythm with no murmur Abdomen colostomy in place Back no CVA tenderness; right ischial dressing intact Extremities PICC in the right upper extremity with no inflammation at the site Results Last 24 Hours of Lab Results: Laboratory Tests 03/13 03/12 0848 2132 Chemistry Sodium (137 - 145 mmol/L) 143 Potassium (3.5 - 5.1 mmol/L) 3.9 Chloride (98 - 107 mmol/L) 104 Carbon Dioxide (22 - 30 mmol/L) 26 Anion Gap (5 - 16) 13 BUN (9 - 20 mg/dL) 10 Creatinine (0.7 - 1.2 mg/dL) 0.5 L Estimated GFR (>60 ml/min) > 60 BUN/Creatinine Ratio (7 - 25 %) 20.0 Hematology CBC w Diff NO MAN DIFF REQ NO MAN DIFF REQ WBC (4.8 - 10.8 /CUMM) 11.4 H 11.3 H RBC (4.70 - 6.10 /CUMM) 4.12 L 3.97 L Hgb (14.0 - 18.0 G/DL) 8.1 L 7.8 L Hct (42 - 52 %) 24.8 L 23.9 L MCV (80.0 - 94.0 FL) 60.2 L 60.2 L MCH (27.0 - 31.0 PG) 19.6 L 19.7 L MCHC (33.0 - 37.0 G/DL) 32.5 L 32.8 L RDW (11.5 - 14.5 %) 21.5 H 20.4 H Plt Count (130 - 400 /CUMM) 319 308 MPV (7.4 - 10.4 FL) 8.1 8.0 Gran % (42.2 - 75.2 %) 82.1 H 80.0 H Lymphocytes % (20.5 - 51.1 %) 12.5 L 13.5 L Monocytes % (1.7 - 9.3 %) 4.5 5.9 Eosinophils % (0 - 5 %) 0.7 0.6 Basophils % (0.0 - 2.0 %) 0.2 0 Absolute Granulocytes (1.4 - 6.5 /CUMM) 9.3 H 9.0 H Absolute Lymphocytes (1.2 - 3.4 /CUMM) 1.4 1.5 Absolute Monocytes (0.10 - 0.60 /CUMM) 0.5 0.7 H Absolute Eosinophils (0.0 - 0.7 /CUMM) 0.1 0.1 Absolute Basophils (0.0 - 0.2 /CUMM) 0 0 Last 24 Hours of Willie Results: Blood cultures March 11 negative Blood culture March 12 (drawn through the PICC) negative Urine culture March 11 greater than 100,000 colonies of Pseudomonas species sensitive to Ceftazidime Assessment/Plan ID Impression: Improved, with no further fevers and with his white blood cell count decreased, on Vancomycin (for a 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 The CT of the pelvis revealed extension of his ulcer to the perineum, for which he was also begun on Flagyl, with abscesses (inferior to the right symphysis pubis and within the right corpora cavernosum) which may require debridement/drainage and will await Plastic surgery evaluation. Have reviewed his chest CT with Radiology, who states that the tip of the PICC is in proper position. Suggestion: 1. Await Plastic surgery evaluation 2. Would continue to use the PICC if able and, if necessary, give Alteplase 3. Follow-up final urine culture 4. Continue Vancomycin, Flagyl and Ceftazidime pending above
--- NOTE | 2018-03-13 14:49 | PN- Att Addend ---
Attending Addendum Attending Brief Note Patient seen and examined, was feeling slightly better today. H&H has improved. Patient was seen by Wound Care and he does have deep decub wound with 2 areas of tunneling. Vital Signs Date Time Temp Pulse Resp B/P B/P Pulse O2 O2 Flow FiO2 Mean Ox Delivery Rate 03/13 0759 94 142/66 03/13 0601 98.0 94 20 142/66 95 /17 2218 98.1 95 18 148/58 95 Room Air on exam; aox3, nad. cv; s1,s2, rrr resp; clear abd; soft, nt, bs+ ext; no edema skin: + deep decub with two areas of tunneling. Laboratory Tests 03/13 03/12 0848 2132 Chemistry Sodium (137 - 145 mmol/L) 143 Potassium (3.5 - 5.1 mmol/L) 3.9 Chloride (98 - 107 mmol/L) 104 Carbon Dioxide (22 - 30 mmol/L) 26 Anion Gap (5 - 16) 13 BUN (9 - 20 mg/dL) 10 Creatinine (0.7 - 1.2 mg/dL) 0.5 L Estimated GFR (>60 ml/min) > 60 BUN/Creatinine Ratio (7 - 25 %) 20.0 Hematology CBC w Diff NO MAN DIFF REQ NO MAN DIFF REQ WBC (4.8 - 10.8 /CUMM) 11.4 H 11.3 H RBC (4.70 - 6.10 /CUMM) 4.12 L 3.97 L Hgb (14.0 - 18.0 G/DL) 8.1 L 7.8 L Hct (42 - 52 %) 24.8 L 23.9 L MCV (80.0 - 94.0 FL) 60.2 L 60.2 L MCH (27.0 - 31.0 PG) 19.6 L 19.7 L MCHC (33.0 - 37.0 G/DL) 32.5 L 32.8 L RDW (11.5 - 14.5 %) 21.5 H 20.4 H Plt Count (130 - 400 /CUMM) 319 308 MPV (7.4 - 10.4 FL) 8.1 8.0 Gran % (42.2 - 75.2 %) 82.1 H 80.0 H Lymphocytes % (20.5 - 51.1 %) 12.5 L 13.5 L Monocytes % (1.7 - 9.3 %) 4.5 5.9 Eosinophils % (0 - 5 %) 0.7 0.6 Basophils % (0.0 - 2.0 %) 0.2 0 Absolute Granulocytes (1.4 - 6.5 /CUMM) 9.3 H 9.0 H Absolute Lymphocytes (1.2 - 3.4 /CUMM) 1.4 1.5 Absolute Monocytes (0.10 - 0.60 /CUMM) 0.5 0.7 H Absolute Eosinophils (0.0 - 0.7 /CUMM) 0.1 0.1 Absolute Basophils (0.0 - 0.2 /CUMM) 0 0 A/P; 72-year-old male with a PMH significant for paraplegia, chronic right sacral decubitus ulcer, osteomyelitis, recurrent UTIs, diabetes mellitus type 2, CAD status post CABG and stent placement in [address] 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 Patient also had acute blood loss anemia. Patient currently getting treated with Vanco, ceftaz and Flagyl per infectious disease. Plastic surgery will be consulted. Patient growing Pseudomonas in the urine. We'll discuss with infectious disease about the choice of antibiotics. H&H has improved after RBC transfusion. Continue the rest of the management. Patient on heparin subcutaneous for DVT prophylaxis. Please check stool for guaiac to find out the source of anemia.
[2018-03-13 22:32] VITALS: BP 158/80
[2018-03-14 06:19] VITALS: BP 155/50
--- NOTE | 2018-03-14 07:28 | PN- Housestaff ---
Gómez SAMPSON,[facility] 03/14/18 0728: Subjective Follow-up For: Sepsis Subjective: patient seen and examined. Reports not feeling okay. He's nauseaous and just not feel right. He does not expand on his complaint. Review of Systems Constitutional: Reports: no symptoms. Objective Last 24 Hrs of Vital Signs/I&O Vital Signs Date Time Temp Pulse Resp B/P B/P Pulse O2 O2 Flow FiO2 Mean Ox Delivery Rate 03/14 619 97.9 90 16 155/50 94 Room Air 03/13 2232 98.3 82 20 158/80 96 Room Air 03/13 0759 94 142/66 Intake & Output 03/14 0800 03/14 0000 03/13 1600 Intake Total 538 647 8521 Output Total 1050 300 950 Balance -370 110 200 Intake, IV 200 170 350 Intake, Oral 480 240 800 Output, Stool 150 Output, Urine 900 300 950 Physical Exam General Appearance: Alert, Oriented X3, Cooperative, Mild Distress Skin: stage IV decubitus ulcer extending to his perineum Skin Temp/Moisture Exam: Warm/Dry Sepsis Skin Exam (color): Normal for Ethnicity HEENT: Atraumatic Cardiovascular: Normal S1, Normal S2, No Murmurs Lungs: Normal Air Movement Abdomen: Soft, No Tenderness Neurological: Normal Speech Extremities: No Edema Last 24 Hrs of Lab/Willie Results Last 24 Hrs of Labs/Mics: Laboratory Tests 03/14/18 0615: CBC w Diff NO MAN DIFF REQ, RBC 4.39 L, MCV 61.3 L, MCH 19.5 L, MCHC 31.9 L, RDW 19.9 H, MPV 7.8, Gran % 80.4 H, Lymphocytes % 12.0 L, Monocytes % 5.7, Eosinophils % 1.6, Basophils % 0.3, Absolute Granulocytes 9.5 H, Absolute Lymphocytes 1.4, Absolute Monocytes 0.7 H, Absolute Eosinophils 0.2, Absolute Basophils 0 Assessment/Plan Assessment: 72-year-old gentleman with a significant past medical history of paraplegia due to spinal cord injury in , CAD status post CABG and stents, type 2 diabetes , hypertension, BPH, urethral strictures, multiple recurrent UTI on chronic Cipro therapy, peripheral vascular disease status post bilateral stents, 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 Assessment: 1. Sepsis 2. Elevated Lactic Acid - resolved. 3. Microcytic Anemia 4. PICC line 5. UTI 6. History of Diabetes 7. History of CAD Plan: * Continue IV Vancomycin, Flagyl and Ceftazidime for now. * Urine Culture is growing Pseudomonas resistant to Cipro but sensitive to Ceftazidime. * While he does have chronic frankel, the Pseudomonas is unlikely to be a contaminant and likely source of his sepsis. * Follow up blood cultures. * His H&H is stable following 1 unit pRBC on admission. * stool guaics * Lactic acid has trended down to normal. * Plastic surgery recommends outpatient follow up with a more experienced flap closure surgeon. * Will await Urology's input for any plans of surgical intervention. If no intervention planned, patient can be discontinued off Metronidazole. * Wound dressing with Dakins moist gauze twice a day. * Diet: Diabetic * DVT Prophylaxis: SC Lovenox * Code: Full Code Problem List: 1. Pressure ulcer of sacral region, stage 4 Pain Ratin Pain Location: none Pain Goal: Remain pain free Pain Plan: none Tomorrow's Labs & Rationales: CBC Donaldo SAMPSON,Kristin 03/14/18 1233: Attending MD Review Statement Attending Statement Attending MD Statement: examined this patient, discuss w/resident/PA/COURT BAILIFF OR SHERIFF, agreed w/resident/PA/COURT BAILIFF OR SHERIFF, reviewed EMR data (avail), discussed with nursing, discussed with case mgmt, reviewed images, amended to note Attending Assessment/Plan: Patient seen and examined, was not feeling well this morning. He was feeling queasy and nauseous. Vital Signs Date Time Temp Pulse Resp B/P B/P Pulse O2 O2 Flow FiO2 Mean Ox Delivery Rate 03/14 0856 90 155/50 03/14 0619 97.9 90 16 155/50 94 Room Air 03/13 2232 98.3 82 20 158/80 96 Room Air on exam; aox3, nad. cv; s1,s2, rrr resp; clear abd; soft, nt, bs+ ext; no edema skin: + deep decub with two areas of tunneling. Laboratory Tests 03/14 615 Hematology CBC w Diff NO MAN DIFF REQ WBC (4.8 - 10.8 /CUMM) 11.8 H RBC (4.70 - 6.10 /CUMM) 4.39 L Hgb (14.0 - 18.0 G/DL) 8.6 L Hct (42 - 52 %) 26.9 L MCV (80.0 - 94.0 FL) 61.3 L MCH (27.0 - 31.0 PG) 19.5 L MCHC (33.0 - 37.0 G/DL) 31.9 L RDW (11.5 - 14.5 %) 19.9 H Plt Count (130 - 400 /CUMM) 364 MPV (7.4 - 10.4 FL) 7.8 Gran % (42.2 - 75.2 %) 80.4 H Lymphocytes % (20.5 - 51.1 %) 12.0 L Monocytes % (1.7 - 9.3 %) 5.7 Eosinophils % (0 - 5 %) 1.6 Basophils % (0.0 - 2.0 %) 0.3 Absolute Granulocytes (1.4 - 6.5 /CUMM) 9.5 H Absolute Lymphocytes (1.2 - 3.4 /CUMM) 1.4 Absolute Monocytes (0.10 - 0.60 /CUMM) 0.7 H Absolute Eosinophils (0.0 - 0.7 /CUMM) 0.2 Absolute Basophils (0.0 - 0.2 /CUMM) 0 A/P; 72-year-old male with a PMH significant for paraplegia, chronic right sacral decubitus ulcer, osteomyelitis, recurrent UTIs, diabetes mellitus type 2, CAD status post CABG and stent placement in [address] Srivastava, HTN , HLD, chronic anemia secondary to thalassemia minor, PVD status post bilateral lower extremity venous stent placements admitted with sepsis secondary to UTI with possibly infected decubitus ulcer and osteomyelitis. Patient also had acute blood loss anemia. Discuss with infectious disease, will wait for recommendations from plastic surgery and urology for the drainage. Patient currently getting Flagyl, ceftaz and vancomycin but infectious disease. He can be treated with Zofran for nausea. He continues to have leukocytosis. Patient on heparin subcutaneous for DVT prophylaxis.
[2018-03-14 08:34] LABS: ABSOLUTE BASOPHIL COUNT 0 /CUMM (0.0-0.2); ABSOLUTE EOSINOPHIL COUNT 0.2 /CUMM (0.0-0.7); ABSOLUTE GRANULOCYTE CT 9.5 /CUMM (1.4-6.5); ABSOLUTE LYMPH COUNT 1.4 /CUMM (1.2-3.4); ABSOLUTE MONOCYTE COUNT 0.7 /CUMM (0.10-0.60); BASOPHIL % 0.3 % (0.0-2.0); EOSINOPHIL % 1.6 % (0-5); GRANULOCYTE % 80.4 % (42.2-75.2); HEMATOCRIT 26.9 % (42-52); MEAN CORPUSCULAR HGB 19.5 PG (27.0-31.0); MEAN CORPUSCULAR HGB CONC 31.9 G/DL (33.0-37.0); MEAN CORPUSCULAR VOLUME 61.3 FL (80.0-94.0); MEAN PLATELET VOLUME 7.8 FL (7.4-10.4); PLATELET COUNT 364 /CUMM (130-400); RBC DISTRIBUTION WIDTH 19.9 % (11.5-14.5); RED BLOOD CELL CT 4.39 /CUMM (4.70-6.10); WHITE BLOOD CELL COUNT 11.8 /CUMM (4.8-10.8)
--- NOTE | 2018-03-14 11:57 | PN- Infect Dx ---
Subjective Subjective: Afebrile. He complains of nausea and does not feel as well as yesterday. Objective Last 24 Hrs of Vital Signs/I&O Vital Signs Date Time Temp Pulse Resp B/P B/P Pulse O2 O2 Flow FiO2 Mean Ox Delivery Rate 03/14 0856 90 155/50 03/14 619 97.9 90 16 155/50 94 Room Air 03/13 2232 98.3 82 20 158/80 96 Room Air Intake & Output 03/14 1600 03/14 0800 03/14 0000 Intake Total 680 410 Output Total 1050 300 Balance -370 110 Intake, IV 200 170 Intake, Oral 480 240 Output, Stool 150 Output, Urine 900 300 Physical Exam Other Physical Findings: He appears comfortable in no acute distress Lungs are clear Heart regular rhythm with no murmur Abdomen is soft, nontender with positive bowel sounds Extremities PICC in the right upper extremity with no inflammation at the site Results Last 24 Hours of Lab Results: Laboratory Tests 03/14 615 Hematology CBC w Diff NO MAN DIFF REQ WBC (4.8 - 10.8 /CUMM) 11.8 H RBC (4.70 - 6.10 /CUMM) 4.39 L Hgb (14.0 - 18.0 G/DL) 8.6 L Hct (42 - 52 %) 26.9 L MCV (80.0 - 94.0 FL) 61.3 L MCH (27.0 - 31.0 PG) 19.5 L MCHC (33.0 - 37.0 G/DL) 31.9 L RDW (11.5 - 14.5 %) 19.9 H Plt Count (130 - 400 /CUMM) 364 MPV (7.4 - 10.4 FL) 7.8 Gran % (42.2 - 75.2 %) 80.4 H Lymphocytes % (20.5 - 51.1 %) 12.0 L Monocytes % (1.7 - 9.3 %) 5.7 Eosinophils % (0 - 5 %) 1.6 Basophils % (0.0 - 2.0 %) 0.3 Absolute Granulocytes (1.4 - 6.5 /CUMM) 9.5 H Absolute Lymphocytes (1.2 - 3.4 /CUMM) 1.4 Absolute Monocytes (0.10 - 0.60 /CUMM) 0.7 H Absolute Eosinophils (0.0 - 0.7 /CUMM) 0.2 Absolute Basophils (0.0 - 0.2 /CUMM) 0 Last 24 Hours of Willie Results: Urine culture March 11 greater than 100,000 colonies of Pseudomonas species sensitive to Ceftazidime, Imipenem and Gentamicin and resistant to Ciprofloxacin and Meropenem Blood cultures March 11 negative Blood culture March 12 (from the PICC) negative Assessment/Plan ID Impression: Stable, with temperatures remaining normal and white blood cell count decreased, though still mildly elevated, on Vancomycin (for a 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 He has been evaluated by Plastic surgery and Urology and will await their decisions regarding the need for debridement or drainage. His nausea may be medication related and can discontinue the Flagyl if there are no plans for surgery. his PICC is now apparently functioning after a dose of Alteplase. Suggestion: 1. Await Plastic surgery and Urology follow-up regarding need for possible drainage 2. Continue Vancomycin, Flagyl and Ceftazidime pending above
--- NOTE | 2018-03-14 13:36 | Cons- Plastic Surgery ---
See Addendum General Information and HPI Consulting Request Date of Consult: 03/13/18 Requested By: Donaldo SAMPSON,Kristin Reason for Consult: Chronic right ischial wound Source of Information: patient (md) Exam Limitations: no limitations History of Present Illness: Patient previously had flap closure with me 2009. Flap partially fell and he went on to have additional surgeries elsewhere which also failed. Admitted now for infection. They've exam patient feels well no specific complaints. Allergies/Medications Allergies: Coded Allergies: erythromycin base (RASH 02/17/18) Home Med List: Acetaminophen (Tylenol Extra Strength) 500 MG TABLET 2 TAB PO TID PAIN ( Reported) Amlodipine Besylate 5 MG TABLET 1 TAB PO DAILY HTN (Reported) Ascorbic Acid (Vitamin C) 500 MG CAPSULE.ER 1 CAP PO DAILY SUPPLEMENT ( Reported) Aspirin (Children's Aspirin) 81 MG TAB.CHEW 81 TAB PO DAILY HEART HEALTH ( Reported) Atenolol 25 MG TABLET 1 TAB PO DAILY HTN (Reported) Atorvastatin Calcium 20 MG TABLET 1 TAB PO DAILY HLD (Reported) Cholecalciferol (Vitamin D3) (Vitamin D) 1,000 UNIT TABLET 1 TAB PO DAILY SUPPLEMENT (Reported) Ciprofloxacin HCl 500 MG TABLET 1 TAB PO ONCE PROHPHYLAXIS (Reported) Ferrous Sulfate 325 MG (65 MG IRON) TABLET 1 TAB PO BID ANEMIA (Reported) Gabapentin 300 MG CAPSULE 2 CAP PO TID UNKNOWN (Reported) Glipizide (Glipizide ER) 5 MG TAB.ER.24 1 TAB PO DAILY DM (Reported) Hydrochlorothiazide 25 MG TABLET 1 TAB PO DAILY PRN PAIN (Reported) Hydrocodone/Acetaminophen (Hydrocodon-Acetaminoph 7.5-325) 7.5 MG-325 MG TABLET 1 TAB PO TIDPRN PRN PAIN (Reported) Metformin HCl 1,000 MG TABLET 1 TAB PO BID DM (Reported) Past History Medical History Blood Transfusion Hx: Yes Neurological: Paraplegia EENT: NONE Cardiovascular: CAD, hypertension, hyperlipidemia Respiratory: NONE Gastrointestinal: NONE Hepatic: NONE Renal: NONE Musculoskeletal: decubitis ulcer Psychiatric: NONE Endocrine: diabetes Blood Disorders: anemia Cancer(s): NONE SOCK BOARDER/Reproductive: trichomoniasis Other Medical Hx: BPH, Multiple UTIs, Urethral strictures, Urinary retention Surgical History Pertinent Surgical History: CABG, spinal fusion, colostomy Family History Relations & Conditions If Any: MOTHER FH: breast cancer FH: hypertension FH: lung cancer uncle FH: cancer Psychosocial History Where Do You Live? Home Who Do You Live With? spouse Services at Home: Home Health Aide, Nursing Primary Language: Divehi Smoking Status: Former Smoker ETOH Use: denies use Illicit Drug Use: denies illicit drug use Functional Ability ADLs Needs Assist: dressing, eating, toileting, bathing. Ambulation: Paraplegic-uses a wheelchair Employment History Employment: Disability Retired? yes Review of Systems Review of Systems: All other systems negative Exam & Diagnostic Data Vital Signs and I&O Vital Signs Date Time Temp Pulse Resp B/P B/P Pulse O2 O2 Flow FiO2 Mean Ox Delivery Rate 03/14 0856 90 155/50 03/14 0619 97.9 90 16 155/50 94 Room Air 03/13 2232 98.3 82 20 158/80 96 Room Air Intake & Output 03/14 1600 03/14 0800 03/14 0000 03/13 1600 03/13 0800 03/13 0000 Intake Total 986 580 1248 120 240 Output Total 1050 300 950 525 350 Balance -370 110 200 -405 -110 Intake, IV 200 170 350 Intake, Oral 480 240 800 120 240 Output, Stool 150 Output, Urine 900 300 950 525 350 Physical Exam: Exam shows chronic right issue wound full-thickness loss granulation tissue overlying issue,. Extends to that involves base of the scrotum with full- thickness loss. Wound digitally probed without collections or evidence of exposed cortical bone nor cortical irregularities. CAT scan reviewed with radiologist. Potential abscesses likely fluid and/or air in continuity with the track. Urology to decide on importance of this track. In regards to the chronic wound patient has failed multiple procedures by multiple surgeons question etiology. Currently had recent 15 pound weight loss has chronic anemia with recent infection patient is not currently an operative candidate. Have advised patient to consider experienced flap surgeon elsewhere. Patient should be evaluated for nutritional status. Assessment/Plan Assessment/Plan Chronic issue wound likely with osteomyelitis based on previous biopsy, with involvement of base of scrotum. Consult Acknowledgment - Thank you for your consult request.
--- NOTE | 2018-03-14 13:37 | PN- Plastic Surgery ---
Subjective Subjective: Patient had some transient nausea better now no fever no chills Review of Systems: All other systems negative Objective Vital Signs and I&Os Vital Signs Date Time Temp Pulse Resp B/P B/P Pulse O2 O2 Flow FiO2 Mean Ox Delivery Rate 03/14 0856 90 155/50 03/14 0619 97.9 90 16 155/50 94 Room Air 03/13 2232 98.3 82 20 158/80 96 Room Air Intake & Output 03/14 1600 03/14 0800 03/14 0000 03/13 1600 03/13 0800 03/13 0000 Intake Total 265 012 6214 120 240 Output Total 1050 300 950 525 350 Balance -370 110 200 -405 -110 Intake, IV 200 170 350 Intake, Oral 480 240 800 120 240 Output, Stool 150 Output, Urine 900 300 950 525 350 Assessment/Plan Assessment/Plan Chronic right issue wound with involvement base of scrotum consider outpatient improvement of nutritional status anemia with consideration of flap reconstruction by experienced flap surgeon possibly at [facility] where he receives his wound care
[2018-03-14 14:54] VITALS: BP 128/56
[2018-03-14 22:37] VITALS: BP 144/68
[2018-03-15 06:12] VITALS: BP 140/62
--- NOTE | 2018-03-15 07:17 | PN- Housestaff ---
Gómez SAMPSON,[facility] 03/15/18 0716: Subjective Follow-up For: Sepsis Stage IV Decubitus Ulcer UTI Subjective: Patient seen and examined. Reports feeling much better day. His nausea is resolved. Does not offer any complaints. Looks forward to going home. Review of Systems Constitutional: Reports: no symptoms. Objective Last 24 Hrs of Vital Signs/I&O Vital Signs Date Time Temp Pulse Resp B/P B/P Pulse O2 O2 Flow FiO2 Mean Ox Delivery Rate 03/15 0612 98.3 86 20 140/62 92 Room Air 03/14 2237 98.1 87 17 144/68 96 Room Air 03/14 1454 98.3 88 20 128/56 92 Room Air 03/14 0856 90 155/50 Intake & Output 03/15 0800 03/15 0000 03/14 1600 Intake Total 380 1050 Output Total 7515 912 0289 Balance -640 -300 50 Intake, IV 260 400 Intake, Oral 120 650 Number 1 Bowel Movements Output, Stool 50 Output, Urine 1020 300 950 Patient 140 lb Weight Physical Exam General Appearance: Alert, Oriented X3, Cooperative, No Acute Distress Skin: stage IV decubitus ulcer extending from sacrum to perineum Skin Temp/Moisture Exam: Warm/Dry Sepsis Skin Exam (color): Normal for Ethnicity HEENT: Atraumatic Cardiovascular: Normal S1, Normal S2, No Murmurs Lungs: Normal Air Movement Abdomen: Soft, No Tenderness, colostomy bag Neurological: Normal Speech Extremities: No Edema Last 24 Hrs of Lab/Willie Results Last 24 Hrs of Labs/Mics: Laboratory Tests 03/15/18 0600: CBC w Diff NO MAN DIFF REQ, RBC 4.29 L, MCV 60.6 L, MCH 19.4 L, MCHC 32.0 L, RDW 21.3 H, MPV 7.9, Gran % 79.7 H, Lymphocytes % 12.2 L, Monocytes % 6.1, Eosinophils % 1.9, Basophils % 0.1, Absolute Granulocytes 9.6 H, Absolute Lymphocytes 1.5, Absolute Monocytes 0.7 H, Absolute Eosinophils 0.2, Absolute Basophils 0 Assessment/Plan Assessment: 72-year-old gentleman with a significant past medical history of paraplegia due to spinal cord injury in , CAD status post CABG and stents, type 2 diabetes , hypertension, BPH, urethral strictures, multiple recurrent UTI on chronic Cipro therapy, peripheral vascular disease status post bilateral stents, 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 Assessment: 1. Sepsis 2. Elevated Lactic Acid - resolved. 3. Microcytic Anemia 4. PICC line 5. UTI 6. History of Diabetes 7. History of CAD Plan: * Continue IV Vancomycin and Ceftazidime. * Urine Culture is growing Pseudomonas resistant to Cipro but sensitive to Ceftazidime. * He will need a total course of 14 days of Ceftaz for his UTI. * Blood cultures negative so far. * His H&H is stable following 1 unit pRBC on admission. * stool guaics * Lactic acid has trended down to normal. * Plastic surgery recommends outpatient follow up with a more experienced flap closure surgeon. * Stable for discharge today. * Wound dressing with Dakins moist gauze twice a day. * Diet: Diabetic * DVT Prophylaxis: SC Lovenox * Code: Full Code Problem List: 1. Pressure ulcer of sacral region, stage 4 Pain Ratin Pain Location: none Pain Goal: Remain pain free Pain Plan: none Tomorrow's Labs & Rationales: none Kristin Fulton MD 03/15/18 1211: Attending MD Review Statement Attending Statement Attending MD Statement: examined this patient, discuss w/resident/PA/DISTRICT MANAGER IN TRAINING, agreed w/resident/PA/DISTRICT MANAGER IN TRAINING, reviewed EMR data (avail), discussed with nursing, discussed with case mgmt, reviewed images, amended to note Attending Assessment/Plan: Patient seen and examined, overall feeling better today. Though nauseous this and queasiness is improved. As noted in plastic surgery note, there is no plan from their standpoint to do any intervention. Also discussed with urology Dr. Claudio who also does not recommend doing any intervention here. Vital Signs Date Time Temp Pulse Resp B/P B/P Pulse O2 O2 Flow FiO2 Mean Ox Delivery Rate 03/15 0855 86 140/62 03/15 0612 98.3 86 20 140/62 92 Room Air 03/14 2237 98.1 87 17 144/68 96 Room Air 03/14 1454 98.3 88 20 128/56 92 Room Air on exam; aox3, nad. cv; s1, s2, rrr resp; clear abd; soft, bs+ ext; no edema Laboratory Tests 03/15 0600 Hematology CBC w Diff NO MAN DIFF REQ WBC (4.8 - 10.8 /CUMM) 12.0 H RBC (4.70 - 6.10 /CUMM) 4.29 L Hgb (14.0 - 18.0 G/DL) 8.3 L Hct (42 - 52 %) 26.0 L MCV (80.0 - 94.0 FL) 60.6 L MCH (27.0 - 31.0 PG) 19.4 L MCHC (33.0 - 37.0 G/DL) 32.0 L RDW (11.5 - 14.5 %) 21.3 H Plt Count (130 - 400 /CUMM) 355 MPV (7.4 - 10.4 FL) 7.9 Gran % (42.2 - 75.2 %) 79.7 H Lymphocytes % (20.5 - 51.1 %) 12.2 L Monocytes % (1.7 - 9.3 %) 6.1 Eosinophils % (0 - 5 %) 1.9 Basophils % (0.0 - 2.0 %) 0.1 Absolute Granulocytes (1.4 - 6.5 /CUMM) 9.6 H Absolute Lymphocytes (1.2 - 3.4 /CUMM) 1.5 Absolute Monocytes (0.10 - 0.60 /CUMM) 0.7 H Absolute Eosinophils (0.0 - 0.7 /CUMM) 0.2 Absolute Basophils (0.0 - 0.2 /CUMM) 0 A/P; 72-year-old male with a PMH significant for paraplegia, chronic right sacral decubitus ulcer, osteomyelitis, recurrent UTIs, diabetes mellitus type 2, CAD status post CABG and stent placement in [address] 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 Patient also had acute blood loss anemia. H&H stable. As mentioned one of the surgeons recommend doing any interventions he's here. Patient is currently getting treated for UTI. Patient will need total of 2 weeks of antibiotics. As discussed with infectious disease, patient to be discharged home on IV antibiotics. For his further wound care, patient to follow-up with his wound care doctor/surgeon at [facility]. He will be discharged home today on IV abx and already has a PICC line.
--- NOTE | 2018-03-15 07:19 | Patient Discharge Instructions ---
Discharge Instructions General Discharge Information You were seen/treated for: Sepsis UTI Special Instructions: Please follow up with your PCP within one week of discharge. Please do wound dressing with Dakins moist gauze twice a day to the affected area Please follow up with your doctors at [facility]. Follow-up at the [facility] wound center Continue Vancomycin to complete a 6 week course (until March 31) Continue Ceftazidime to complete a 2 week course (until March 25) Weekly CBC, ESR, BUN/creatinine and Vancomycin trough level while on Vancomycin Diet Continue normal diet: Yes Recommended Diet: Diabetic Activity Full Activity/No Limits: No Activity Self Limited: Yes Acute Coronary Syndrome Inclusion Criteria At DC or during hospital stay patient has or had the following: ACS DIAGNOSIS No Discharge Core Measures Meds if any: Prescribed or Continued at Discharge Meds if any: NOT Prescribed or Continued at Discharge Congestive Heart Failure Inclusion Criteria At DC or during hospital stay patient has or had the following: CHF DIAGNOSIS No Discharge Core Measures Meds if any: Prescribed or Continued at Discharge Meds if any: NOT Prescribed or Continued at Discharge Cerebrovascular accident Inclusion Criteria At DC or during hospital stay patient has or had the following: CVA/TIA Diagnosis No Discharge Core Measures Meds if any: Prescribed or Continued at Discharge Meds if any: NOT Prescribed or Continued at Discharge Venous thromboembolism Inclusion Criteria VTE Diagnosis No VTE Type NONE VTE Confirmed by (Test) NONE Discharge Core Measures - Per Current guidelines, there needs to be overlap - treatment for the first 5 days of Warfarin therapy. - If discharged on Warfarin prior to 5 days of - overlap therapy, the patient will need to be - assessed for post discharge needs including - *Post discharge parental anticoagulation - *Warfarin and/or parental anticoagulation education - *Follow up date to check INR post discharge At least 5 days overlap therapy as Inpatient No Meds if any: Prescribed or Continued at Discharge Note: Overlap Therapy is Warfarin and Anticoagulant Meds if any: NOT Prescribed or Continued at Discharge
[2018-03-15 07:52] LABS: ABSOLUTE BASOPHIL COUNT 0 /CUMM (0.0-0.2); ABSOLUTE EOSINOPHIL COUNT 0.2 /CUMM (0.0-0.7); ABSOLUTE GRANULOCYTE CT 9.6 /CUMM (1.4-6.5); ABSOLUTE LYMPH COUNT 1.5 /CUMM (1.2-3.4); ABSOLUTE MONOCYTE COUNT 0.7 /CUMM (0.10-0.60); BASOPHIL % 0.1 % (0.0-2.0); EOSINOPHIL % 1.9 % (0-5); GRANULOCYTE % 79.7 % (42.2-75.2); MEAN CORPUSCULAR HGB 19.4 PG (27.0-31.0); MEAN CORPUSCULAR VOLUME 60.6 FL (80.0-94.0); MEAN PLATELET VOLUME 7.9 FL (7.4-10.4); PLATELET COUNT 355 /CUMM (130-400); RBC DISTRIBUTION WIDTH 21.3 % (11.5-14.5); RED BLOOD CELL CT 4.29 /CUMM (4.70-6.10)
[2018-03-15] MEDS ORDERED: VANCOMYCIN HCL1 G1 IV (08:22)
[2018-03-15] MEDS ORDERED: CEFTAZIDIME1 G2 IV (08:23)
--- NOTE | 2018-03-15 14:00 | PN- Infect Dx ---
Subjective Subjective: Afebrile without complaints Objective Last 24 Hrs of Vital Signs/I&O Vital Signs Date Time Temp Pulse Resp B/P B/P Pulse O2 O2 Flow FiO2 Mean Ox Delivery Rate 03/15 0855 86 140/62 03/15 0612 98.3 86 20 140/62 92 Room Air 03/14 2237 98.1 87 17 144/68 96 Room Air 03/14 1454 98.3 88 20 128/56 92 Room Air Intake & Output 03/15 1600 03/15 0800 03/15 0000 Intake Total 380 Output Total 1020 300 Balance -640 -300 Intake, IV 260 Intake, Oral 120 Number 1 Bowel Movements Output, Urine 1020 300 Physical Exam Other Physical Findings: He appears comfortable in no acute distress Lungs are clear Heart regular rhythm with no murmur Abdomen is soft, nontender with positive bowel sounds Back no CVA tenderness Extremities PICC in the right upper extremity with no inflammation at the site Results Last 24 Hours of Lab Results: Laboratory Tests 03/15 0600 Hematology CBC w Diff NO MAN DIFF REQ WBC (4.8 - 10.8 /CUMM) 12.0 H RBC (4.70 - 6.10 /CUMM) 4.29 L Hgb (14.0 - 18.0 G/DL) 8.3 L Hct (42 - 52 %) 26.0 L MCV (80.0 - 94.0 FL) 60.6 L MCH (27.0 - 31.0 PG) 19.4 L MCHC (33.0 - 37.0 G/DL) 32.0 L RDW (11.5 - 14.5 %) 21.3 H Plt Count (130 - 400 /CUMM) 355 MPV (7.4 - 10.4 FL) 7.9 Gran % (42.2 - 75.2 %) 79.7 H Lymphocytes % (20.5 - 51.1 %) 12.2 L Monocytes % (1.7 - 9.3 %) 6.1 Eosinophils % (0 - 5 %) 1.9 Basophils % (0.0 - 2.0 %) 0.1 Absolute Granulocytes (1.4 - 6.5 /CUMM) 9.6 H Absolute Lymphocytes (1.2 - 3.4 /CUMM) 1.5 Absolute Monocytes (0.10 - 0.60 /CUMM) 0.7 H Absolute Eosinophils (0.0 - 0.7 /CUMM) 0.2 Absolute Basophils (0.0 - 0.2 /CUMM) 0 Last 24 Hours of Willie Results: Blood cultures March 11 negative Blood culture March 12 negative Assessment/Plan ID Impression: Stable, with temperatures remaining normal, on Vancomycin (for a 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 His white blood cell count remains mildly elevated of unclear etiology. The CT findings revealing extension of his ulcer to the perineum, with abscesses (inferior to the right symphysis pubis and within the right corpora cavernosum) are of unclear significance and duration and have discussed with both Plastic surgery and Urology, neither of whom recommends intervention at this time. He is being followed at the [facility], where these findings can be followed up. Suggestion: 1. Follow-up at the [facility] 2. Continue Vancomycin to complete a 6 week course (until March 31) 3. Continue Ceftazidime to complete a 2 week course (until March 25) 4. Weekly CBC, ESR, BUN/creatinine and Vancomycin trough level while on Vancomycin
[2018-03-15 16:00] VITALS: BP 138/64
[2018-03-15 21:56] VITALS: BP 146/70
[2018-03-16 04:18] VITALS: BP 162/80
--- NOTE | 2018-03-16 07:14 | PN- Housestaff ---
Gómez SAMPSON,[facility] 03/16/18 0712: Subjective Follow-up For: Stage IV pressure ulcer Sepsis UTI Subjective: Patient seen and examined. Reports feeling well. Had some nausea earlier in the morning which improved with Zofran. Is eager to go home today. Review of Systems Constitutional: Reports: no symptoms. Objective Last 24 Hrs of Vital Signs/I&O Vital Signs Date Time Temp Pulse Resp B/P B/P Pulse O2 O2 Flow FiO2 Mean Ox Delivery Rate 03/16 0418 98.5 107 18 162/80 98 Room Air 03/15 2156 98.6 85 18 146/70 94 Room Air 03/15 1600 98.7 88 20 138/64 93 Room Air 03/15 0855 86 140/62 Intake & Output 03/16 0800 03/16 0000 03/15 1600 Intake Total 401 448 5742 Output Total 720 775 601 Balance -350 -535 439 Intake, IV 250 300 Intake, Oral 120 240 740 Number 1 Bowel Movements Output, Stool 1 Output, Urine 720 775 600 Physical Exam General Appearance: Alert, Oriented X3, Cooperative, No Acute Distress Skin: large Stage IV decubitus sacral ulcer extending to perineum Skin Temp/Moisture Exam: Warm/Dry Sepsis Skin Exam (color): Normal for Ethnicity HEENT: Atraumatic Cardiovascular: Normal S1, Normal S2, No Murmurs Lungs: Normal Air Movement Abdomen: Soft, No Tenderness Neurological: Normal Speech Extremities: No Edema Last 24 Hrs of Lab/Willie Results Last 24 Hrs of Labs/Mics: Laboratory Tests 03/16/18 0750: CBC w Diff NO MAN DIFF REQ, RBC 4.61 L, MCV 61.1 L, MCH 19.2 L, MCHC 31.4 L, RDW 20.9 H, MPV 7.8, Gran % 81.7 H, Lymphocytes % 12.0 L, Monocytes % 4.7, Eosinophils % 1.4, Basophils % 0.2, Absolute Granulocytes 11.7 H, Absolute Lymphocytes 1.7, Absolute Monocytes 0.7 H, Absolute Eosinophils 0.2, Absolute Basophils 0 Assessment/Plan Assessment: 72-year-old gentleman with a significant past medical history of paraplegia due to spinal cord injury in , CAD status post CABG and stents, type 2 diabetes , hypertension, BPH, urethral strictures, multiple recurrent UTI on chronic Cipro therapy, peripheral vascular disease status post bilateral stents, chronic ischial wound with osteomyelitis status post multiple skin grafts with unsuccessful closure, colostomy placement, significant urinary retention requiring straight cath daily, presented to [place] ED with complains of fever and chills. Assessment: 1. Sepsis 2. Elevated Lactic Acid - resolved. 3. Microcytic Anemia 4. PICC line 5. UTI 6. History of Diabetes 7. History of CAD Plan: * Stable to be dischaged today * Continue IV Vancomycin till March 31 and Ceftazidime for a total of 14 day course. * Urine Culture grew Pseudomonas resistant to Cipro but sensitive to Ceftazidime. * His H&H is stable following 1 unit pRBC on admission. * Plastic surgery recommended outpatient follow up with a more experienced flap closure surgeon. * Wound dressing with Dakins moist gauze twice a day. * Diet: Diabetic * DVT Prophylaxis: SC Lovenox * Code: Full Code Problem List: 1. Pressure ulcer of sacral region, stage 4 Pain Ratin Pain Location: none Pain Goal: Remain pain free Pain Plan: none Tomorrow's Labs & Rationales: none Donaldo SAMPSON,Kristin 03/16/18 1132: Attending MD Review Statement Attending Statement Attending MD Statement: examined this patient, discuss w/resident/PA/SHIRRING MACHINE OPERATOR AUTOMATIC, agreed w/resident/PA/SHIRRING MACHINE OPERATOR AUTOMATIC, reviewed EMR data (avail), discussed with nursing, discussed with case mgmt, reviewed images, amended to note Attending Assessment/Plan: Patient seen and examined, feels well. Could not be discharged yesterday as there was some problem with home antibiotics. Patient does have some worsening of his leukocytosis today. Discussed with infectious disease. Dr. Ordaz follow-up with him as an outpatient. Patient otherwise medically stable for discharge home today on IV antibiotics that includes vancomycin and Ancef has. He has a PICC line. He will also follow-up with his wound care surgeon at [facility].
--- NOTE | 2018-03-16 08:10 | Discharge Summary ---
Visit Information Visit Dates Admission Date: 03/11/18 Discharge Date: 03/16/18 Hospital Course Course Attending Physician: Kristin Fulton MD Primary Care Physician: Loco Bynum MD Hospital Course: Mr Lopez is a 72-year-old gentleman with a past medical history of paraplegia due to spinal cord injury in , CAD status post CABG and stents, type 2 diabetes, hypertension, BPH, urethral strictures, multiple recurrent UTI on chronic Cipro therapy, peripheral vascular disease status post bilateral stents, chronic decubitus ulcer with underlying osteomyelitis on Vancomycin status post multiple skin grafts with unsuccessful closure, colostomy placement, urinary retention requiring straight cath, presented to [place] ED with complains of fever and chills. He was seen and admitted for: Sepsis and UTI: On admisison patient was found to be febrile to 102.4, heart rate of 124 and white count of 16 with UA indicating as likely source of infection; picture consistent with sepsis. He was started on IV Ceftazidime for UTI. His urine Culture grew Pseudomonas resistant to Cipro but sensitive to Ceftazidime. He was discharged to complete a 14 day course of Ceftazidime to be completed as an outpatient. Stage IV Decubitus Ulcer: Patient has a history of chronic decubitus ulcer. His CT scan on admission showed large right sacral decubitus ulcer extending to the base of the right penis along with possible small abscess. He was already on IV Vancomycin for chronic osteomyelitis and IV Flagyl was added initially to cover for underlying possible abscess but was discontinued. Plastic surgery was consulted for his underlying ulcer. He was recommended for outpatient optimization of his nutritional status, with consideration of flap reconstruction by experienced flap surgeon at a different hospital. Wound care was consulted with recommendations for wound dressing with Dakins moist gauze twice a day. He is to continue Vancomycin as an outpatient to complete a 6 week course (until March 31). Elevated Lactic Acid: Found to be elevated on admission but resolved with IVF. Acute on Chronic Anemia: While the patient has a history of microcytic anemia, his Hb was found to be low on his second day requiring 1 unit pRBC. His H&H remained stable for the remainder of his hospital stay. Allergies: Coded Allergies: erythromycin base (RASH 02/17/18) Significant Procedures: SERVICE DATE: 03/11/18 EXAM TYPE: CAT - CT PELVIS WO IV CONTRAST FINDINGS: PELVIS: A large right sacral decubitus ulcer is again noted which extends to the base of the right penis in the inferior aspect of the right symphysis pubis where there is what may be a small abscess measuring approximately 1.3 x 1.3 cm on axial image 42 of series 2. There is asymmetric hypoattenuation and soft tissue gas in the right corpora cavernosum near at the base of the penis adjacent to the collection inferior to the right symphysis pubis. There is stranding and thickening of the proximal right abductor muscles. There are a few separate foci of soft tissue gas tracking more inferiorly within the posterior perineal soft tissues. Otherwise unchanged appearance of the visualized pelvis. Extensive atherosclerotic vascular calcification is again noted. IMPRESSION: There appears to be a small abscess just inferior to the right symphysis pubis. There is an adjacent abscess contained within the right corpora cavernosum. There are a few additional foci of soft tissue gas tracking more inferiorly within the posterior perineal soft tissues. SERVICE DATE: 03/11/18 EXAM TYPE: CAT - CT ABD & PELVIS W IV CONTRAST; CTA CHEST-PULMONARY EMBOLISM FINDINGS: QUALITY OF STUDY/CONTRAST BOLUS: Satisfactory. PULMONARY ARTERIES: No central or segmental pulmonary emboli. THORACIC AORTA: Atherosclerotic calcification in the aortic arch is noted. No thoracic aortic aneurysm or dissection. LUNG: No focal consolidation, nodules or masses. Centrilobular emphysema is noted. PLEURA: No pleural effusion or pneumothorax. MEDIASTINUM: Normal heart size. No pericardial effusion. No hilar or mediastinal lymphadenopathy. No evidence of septal bowing or right heart strain. CHEST WALL/AXILLA: No axillary or internal mammary lymphadenopathy. Thoracolumbar spinal fixation rods are noted. Thoracic vertebral body height is maintained. Sagittal thoracic spinal alignment is maintained. ABDOMEN/PELVIS: LIVER, GALLBLADDER, AND BILIARY TREE: The liver is normal in size, shape, and attenuation. No focal hepatic lesion or biliary ductal dilatation is present. The gallbladder is unremarkable with no evidence of radiopaque gallstones, gallbladder wall thickening, or obvious pericholecystic inflammatory changes. PANCREAS: Normal; no mass or surrounding fluid. SPLEEN: Normal size. No focal lesion. ADRENAL GLANDS: Normal; no mass. KIDNEYS AND URETERS: 3 mm nonobstructive right inferior renal collecting system calculus is noted, smaller than that seen previously. No hydronephrosis or perinephric stranding. GASTROINTESTINAL TRACT: Stomach and small bowel non-dilated. No colonic wall thickening or pericolonic inflammatory changes. Left lower quadrant end colostomy is again noted with parastomal herniation of fat and nonobstructed small bowel. Normal appendix. ABDOMINAL WALL: Rectus diastases is noted. Left lower quadrant colostomy is noted. LYMPHOVASCULAR STRUCTURES: No lymphadenopathy. Aortobiiliac stent graft is again noted. BLADDER: There is mild diffuse bladder wall thickening. No bladder calculi. PELVIC VISCERA: Unremarkable. OSSEOUS STRUCTURES: There is a redemonstrated right sacral decubitus ulcer which extends to the right inferior pubic ramus where there is mixed lucent and sclerotic change compatible with chronic osteomyelitis as previously demonstrated. There appears to be some progression of the ulcer with air now seen extending to the right penile base, and increased fat stranding in the perineal soft tissues which is incompletely assessed. Degenerative changes are noted in the spine and bilateral hips. IMPRESSION: 1. No pulmonary embolism. 2. Centrilobular emphysema. 3. Redemonstrated right sacral decubitus ulcer extending to the right inferior pubic ramus where there are redemonstrated changes of chronic osteomyelitis. There is progression of the ulceration which now extends to the right penile base with new fat stranding in the perineal soft tissue which is incompletely assessed. Consider repeat pelvic CT with contrast with specific instruction to extend the [id number] through the entirety of the perineal soft tissues if there is concern for abscess or fluid collection in this region. 4. Redemonstrated left lower quadrant and colostomy with parastomal herniation of fat and nonobstructed small bowel. 5. Small nonobstructive right inferior pole collecting system renal calculus without hydronephrosis or perinephric stranding. VTE: negative SERVICE DATE: 03/11/18 EXAM TYPE: RAD - XRY-PORTABLE CHEST XRAY FINDINGS: Spinal fusion rods are noted. A right-sided PICC line is present. The precise location of the tip is unable to be ascertained as it is superimposed upon the right spinal agueda. No focal consolidation or effusion. Cardiac mediastinal silhouette is within normal limits. No pneumothorax. No acute osseous abnormalities. Mild right acromioclavicular joint arthrosis noted. IMPRESSION: 1. There is a right-sided PICC line. The precise location the tip cannot be ascertained as it is superimposed upon the right spinal agueda. 2. No focal consolidation or effusion. No pneumothorax. 3. Mild right acromioclavicular joint arthrosis. Disposition Summary Disposition Principal Diagnosis: Sepsis Elevated Lactic Acid UTI Stage IV Decubitus Ulcer Acute on Chronic Anemia Additional Diagnosis: Diabetes CAD Osteomyelitis Microcytic Anemia Discharge Disposition: home health services Discharge Instructions General Discharge Information Code Status: Full Code Patient's Diet: Diabetic Patient's Activity: As tolerated Follow-Up Instructions/Appts: Please follow up with your PCP within one week of discharge. Please do wound dressing with Dakins moist gauze twice a day to the affected area Please follow up with your doctors at [facility]. Follow-up at the [facility] wound center Continue Vancomycin to complete a 6 week course (until March 31) Continue Ceftazidime to complete a 2 week course (until March 25) Weekly CBC, ESR, BUN/creatinine and Vancomycin trough level while on Vancomycin Medications at Discharge Discharge Medications: Stop taking the following medications: Ciprofloxacin HCl (Ciprofloxacin HCl) 500 MG TABLET ORAL GIVE ONCE Qty = 60 Continue taking these medications: Aspirin (Children's Aspirin) 81 MG TAB.CHEW 81 Tablet ORAL DAILY Qty = 30 Comments: Last Taken: 03/16/18 Time: 8:00 AM Hydrochlorothiazide (Hydrochlorothiazide) 25 MG TABLET 1 Tablet ORAL DAILY as needed for PAIN Qty = 30 Comments: NOT GIVEN IN HOSPITAL Atenolol (Atenolol) 25 MG TABLET 1 Tablet ORAL DAILY Qty = 60 Comments: Last Taken: 03/16/18 Time: 8:00 AM Amlodipine Besylate (Amlodipine Besylate) 5 MG TABLET 1 Tablet ORAL DAILY Qty = 30 Comments: SNOT GIVEN IN HOSPITAL Glipizide (Glipizide ER) 5 MG TAB.ER.24 1 Tablet ORAL DAILY Qty = 30 Comments: NOT GIVEN IN HOSPITAL Atorvastatin Calcium (Atorvastatin Calcium) 20 MG TABLET 1 Tablet ORAL DAILY Qty = 30 Comments: Last Taken: 03/15/18 Time: 5:00 PM Metformin HCl (Metformin HCl) 1,000 MG TABLET 1 Tablet ORAL TWICE DAILY Qty = 60 Comments: NOT GIVEN IN HOSPITAL Hydrocodone/Acetaminophen (Hydrocodon-Acetaminoph 7.5-325) 7.5 MG-325 MG TABLET 1 Tablet ORAL THREE TIMES A DAY NEEDED as needed for PAIN Qty = 60 Comments: Last Taken: 03/16/18 Time: 4:00 AM Ferrous Sulfate (Ferrous Sulfate) 325 MG (65 MG IRON) TABLET 1 Tablet ORAL TWICE DAILY Qty = 30 Comments: Last Taken: 03/16/18 Time: 8:00 AM Cholecalciferol (Vitamin D3) (Vitamin D) 1,000 UNIT TABLET 1 Tablet ORAL DAILY Comments: NOT GIVEN IN HOSPITAL Ascorbic Acid (Vitamin C) 500 MG CAPSULE.ER 1 Capsule ORAL DAILY Qty = 30 Comments: NOT GIVEN IN HOSPITAL Gabapentin (Gabapentin) 300 MG CAPSULE 2 Capsule ORAL THREE TIMES DAILY Comments: Last Taken: 03/16/18 Time: 8:00 AM Acetaminophen (Tylenol Extra Strength) 500 MG TABLET 2 Tablet ORAL THREE TIMES DAILY Comments: NOT GIVEN IN HOSPITAL Vancomycin HCl (Vancomycin HCl) 1 GRAM VIAL 1,000 Milligram INTRAVEN EVERY 12 HOURS Qty = 30 Comments: Last Taken: 03/15/18 Time: 11:50 PM PLEASE TAKE VANCOMYCIN UNTIL March, TO COMPLTE A SIX WEEK COURSE OF ABX Start taking the following new medications: Dakins Solution (Dakin's) 0.25 % SOLUTION 1 Application On the skin AAC Qty = 1 No Refills Instructions: Wound dressing with Dakins moist gauze twice a day. Comments: Last Taken: 03/16/18 Time: 9:00 AM Ceftazidime (Ceftazidime) 1 GRAM VIAL 1,000 Milligram INTRAVEN EVERY 8 HOURS Qty = 30 No Refills Comments: Last Taken: 03/16/18 Time: 5:30 AM Please complete a 2 wk course of antibiotic until March 25. Ondansetron HCl (Zofran) 4 MG TABLET 1 Tablet ORAL EVERY 8 HOURS NEEDED as needed for Nausea Qty = 15 No Refills Comments: NOT GIVEN IN HOSPITAL Copies To: Misa SAMPSON,Lcoo Bynum MD,Loco Huber
[2018-03-16 08:19] VITALS: BP 158/76
[2018-03-16] MEDS ORDERED: ZOFRAN4 M2 PO (08:24)
[2018-03-16] MEDS ORDERED: DAKIN'S473 M1 TOP (08:24)
[2018-03-16 08:59] LABS: ABSOLUTE BASOPHIL COUNT 0 /CUMM (0.0-0.2); ABSOLUTE EOSINOPHIL COUNT 0.2 /CUMM (0.0-0.7); ABSOLUTE GRANULOCYTE CT 11.7 /CUMM (1.4-6.5); ABSOLUTE LYMPH COUNT 1.7 /CUMM (1.2-3.4); ABSOLUTE MONOCYTE COUNT 0.7 /CUMM (0.10-0.60); BASOPHIL % 0.2 % (0.0-2.0); EOSINOPHIL % 1.4 % (0-5); GRANULOCYTE % 81.7 % (42.2-75.2); HEMATOCRIT 28.2 % (42-52); MEAN CORPUSCULAR HGB 19.2 PG (27.0-31.0); MEAN CORPUSCULAR HGB CONC 31.4 G/DL (33.0-37.0); MEAN CORPUSCULAR VOLUME 61.1 FL (80.0-94.0); MEAN PLATELET VOLUME 7.8 FL (7.4-10.4); PLATELET COUNT 386 /CUMM (130-400); RBC DISTRIBUTION WIDTH 20.9 % (11.5-14.5); RED BLOOD CELL CT 4.61 /CUMM (4.70-6.10); WHITE BLOOD CELL COUNT 14.3 /CUMM (4.8-10.8)
== END 2018-03-16 10:13 | disposition home health service (06) | DRG 871 ==
LOC: ERH 14:15 → ERHI 19:25 → 2NB 19:25 → ENRESERV 21:18 → CANRESERV 21:18 → ENRESERV 21:25 → 2NB 22:54 → ENPENDDIS 03-16 08:46 → 2NB 03-16 10:13
PROVIDERS: Internal Medicine; Physician Assistant Medical; Student in an Organized Health Care Education/Training Program
PROC: 30253N1 (ICD-10-PCS; principal; 2018-03-12)
DX: A41.9 Sepsis, unspecified organism (principal); L89.214 Pressure ulcer of right hip, stage 4; G82.20 Paraplegia, unspecified; M46.28 Osteomyelitis of vertebra, sacral and sacrococcygeal region; D62 Acute posthemorrhagic anemia; L02.215 Cutaneous abscess of perineum; N39.0 Urinary tract infection, site not specified; E11.9 Type 2 diabetes mellitus without complications; Z93.3 Colostomy status; E87.6 Hypokalemia; D50.9 Iron deficiency anemia, unspecified; B95.62 Methicillin resistant Staphylococcus aureus infection as the cause of diseases classified elsewhere; S31.501A Unspecified open wound of unspecified external genital organs, male, initial encounter; B96.5 Pseudomonas (aeruginosa) (mallei) (pseudomallei) as the cause of diseases classified elsewhere; R63.4 Abnormal weight loss; Z68.22 Body mass index [BMI] 22.0-22.9, adult; Z88.1 Allergy status to other antibiotic agents; Z79.84 Long term (current) use of oral hypoglycemic drugs; I25.10 Atherosclerotic heart disease of native coronary artery without angina pectoris; E78.5 Hyperlipidemia, unspecified; Z98.61 Coronary angioplasty status; Z98.1 Arthrodesis status
CPT/HCPCS: 2NBP; 36592; 71045; 74177; 81001; 82436; 86920; 87040; 87086; 93005; 93010; 96374; 96375; 99291; J0713; J1644; J1650; J1885; J2405; J2997; J3370; J3490; J7040; P9016

== ENCOUNTER → 2018-04-27 | Day surgery (SDC) | payer OTHER ==
[~2018-04-27] MED LIST changes: +BACTRIM DS TAB1 EACH PO; +CEFTAZIDIME1 G2 IV; +CHILDREN'S ASPI81 M1 PO; +DAKIN'S473 M1 TOP; +TYLENOL EXTRA500 M2 PO; +VANCOMYCIN HCL1 G1 IV; +VITAMIN D1000 UNIT PO; +ZOFRAN4 M2 PO
--- NOTE | 2018-04-27 14:18 | Operative Report ---
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 belkofski tip frankel/10cc balloon Complications: none Condition: possible fistula at membranous urethra posterior to prostate: no leaking to perineum with irrigation with cysto. Operative Indication: incontinence of urine pooling at decubitus Operative/Procedure Note Note: The patient was taken to the operating room, and placed on the OR table in supine position. Timeout was performed, with the patient awake, to confirm of patient, anesthesia, antibiotics, procedure, and other pertinent perioperative information. After adequate anesthesia, and antibiotics, the patient was then placed lithotomy stirrups, then draped and prepped, in the usual surgical fashion. A 22 Upper Sorbian cystoscope sheath with 30 angle lens was inserted into the urethra. Under direct visualization, the cystoscope was advanced to the level of the prostatic urethra. A false lumen was noted on the posterior prostate undermining the bladder. Direct visualization allowed me to bypass this false passage, and enter the bladder without further difficulty. The bladder was noted to be severely trabeculated, with no tumor, no stone. Through the cystoscope, a 0.038 guidewire was inserted into the bladder. The cystoscope was removed, leaving the guidewire in place. A 16 Upper Sorbian belkofski tip Frankel catheter , was railroaded over this guidewire and advanced easily into the bladder. The guidewire was removed, draining clear fluid. 10 mL of sterile water was placed into the 10 mL balloon. The patient tolerated procedures well. All sponge needle and instrument count were correct at the end of the case. The patient was taken to the recovery room in satisfactory condition. He is given postoperative instructions, antibiotics, pain medications, and was taught to use leg bag prior to discharge to home. Discharge Disposition: Same Day Admissions Additional Comments: pt to f/u in [place] for perinea/decubitus repair CC: Rickey Claudio MD
== END ==
LOC: STS 02:05
DX: N28.89 Other specified disorders of kidney and ureter (principal); N40.1 Benign prostatic hyperplasia with lower urinary tract symptoms; N31.9 Neuromuscular dysfunction of bladder, unspecified; N39.498 Other specified urinary incontinence; E11.9 Type 2 diabetes mellitus without complications; Z79.84 Long term (current) use of oral hypoglycemic drugs; G82.20 Paraplegia, unspecified; I10 Essential (primary) hypertension; Z95.1 Presence of aortocoronary bypass graft; Z95.5 Presence of coronary angioplasty implant and graft; Z79.82 Long term (current) use of aspirin
CPT/HCPCS: J2250